=== PATIENT | female | born 1970 | race Hispanic/Latino ===

== ENCOUNTER → 2018-06-14 | Day surgery (SDC) | payer OTHER ==
[~2018-06-14] MED LIST: HYDROCODONE/APAP 7.5/325 MG TAB ONE
[2018-06-14 08:55] LABS: MPV 8.1 fL (7.6-11.3)
[2018-06-14 09:02] LABS: Protime INR 1.03
--- NOTE | 2018-06-14 11:50 | RAD REPORT ---
EXAM DESCRIPTION: CT - Myelogram C Spine - 06/14/2018 11:30 am CLINICAL HISTORY: M50.13 COMPARISON: [id number] dated 06/08/2007 FINDINGS: Lumbar puncture for myelographic injection of contrast is separately reported in detail. ACDF is seen spanning C5-7, appearing well-healed. No hardware complication or abnormality discerned. Normal craniocervical junction noted. The visualized portions posterior fossa are within normal limit s. Prevertebral soft tissues normal in thickness. C2-3: No significant canal or foraminal stenosis identified. C3-4: A central disc protrusion is present measuring 5 mm in anterior-posterior dimension, effacing t he anterior subarachnoid space and contacting and deforming the cord centrally. Moderate central rainer l stenosis is present. Exit foramina are widely patent. C4-5: Small osteophyte/disc complex is present attenuating the anterior subarachnoid space contacting the anterior cord. Central canal is mildly narrowed. No significant exit foraminal stenosis. C5-6: Small posterior osteophytic ridge is present mildly narrowing the central canal. No significant exit foraminal stenosis. C6-7: No canal or foraminal stenosis of significance. C7-T1: Protrusion of disc material is present along the right paracentral and foraminal region result ing in right-sided exit foraminal narrowing. Mild mass effect on the right aspect of the cord also pr esent. Central canal is mildly narrowed. Cervical cord appears normal in size. IMPRESSION: Disc protrusions are suspected at C3-4 centrally and C7-T1 along the right as fully deta iled above. Well-healed ACDF noted spanning C5-7. All CT scans are performed using dose optimization technique as appropriate and may include automated exposure control or mA/KV adjustment according to patient size.
--- NOTE | 2018-06-14 11:51 | RAD REPORT ---
EXAM DESCRIPTION: RAD - Myelography C Spine - 06/14/2018 11:40 am CLINICAL HISTORY: M5013, CERVICAL DISC DISORDER W/ RADICULOPATHY COMPARISON: SPINE CERVICAL AP LAT dated 10/20/2008; SPINE CERVICAL W OBLIQUES dated 07/04/2003 TECHNIQUE: The procedure, risks and alternatives to the procedure were discussed with the patient in detail. After answering all questions, both oral and written consent were obtained. Time-out procedu re was performed. The patient was placed in an oblique prone position on the fluoroscopic table. The skin of the lower back was prepped and draped in the usual sterile fashion. After anesthetizing the skin and deeper sof t tissues with 1% lidocaine, a 22 gauge needle was advanced into the thecal sac at the L2-3 level. 10 cc of Isovue 300 and was injected into the subarachnoid space. The patient is placed Trendelenburg for few minutes prior to being transferred to the CT scanner for CT cervical myelogram, separately r eported. At the conclusion of the procedure the needle was withdrawn and a sterile bandage placed over the pun cture site. The patient tolerated the procedure well without immediate complications. Total fluoro time: 1 minutes Images obtained: 4 IMPRESSION: Successful fluoroscopic guided lumbar puncture and myelographic contrast injection for C T cervical myelogram.
== END ==
LOC: DS 08:29
PROVIDERS: ATTEND Specialist
PROC: B02BYZZ Computerized Tomography (CT Scan) of Spinal Cord using Other Contrast (ICD-10-PCS; principal; 2018-06-14)
DX: M50.13 Cervical disc disorder with radiculopathy, cervicothoracic region (principal)
CPT/HCPCS: 36415; 62302; 72126; 85049; 85610; 85730; Q9967

== ENCOUNTER 2021-11-04 10:35 | Emergency (ER) | payer BC ==
--- OUTSIDE RECORDS SUMMARY | 2021-11-04 10:39 | XMS REPORT | Continuity of Care Document ---
:1970 Author Organization [facility] t Address [address] [place] [address] Care Team Providers Name Role Phone Pcp, Does Not Have A Primary Care Physician LENARD, A Attending Clinician Unavailable Therapy, Covid Infusion Attending Clinician Unavailable Lenard RODRÍGUEZ, A Attending Clinician Doctor Unassigned, Name Attending Clinician Unavailable NAHOMY Attending Clinician Unavailable SAMIRA Attending Clinician Unavailable Payers Payer Name Policy Type Policy Number Effective Date Expiration Date S get [facility] O [id number] 2020 00:00:00 Problems Condition Condition Condition Status Onset Resolution Last Treating Co mments Source Name Details Category Date Date Treatment Clinician Date UNK Diagnosis Active 2017-092018-08-07 Mem oria 0-19 15:20:00 l UNK 00:00: Ramon 00 Active 07/02/2018 [facility] 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 1-26 ity of in in 00:00: [place] cervical cervical 00 Medica l region region Branch History of History of Problem Resolve Univers Rheumatoid Rheumatoid d it [place] of arthritis [place] Depression Depression Problem Active U nivers ity of [place] Physici ans History of History of Problem Resolve Univers H/O H/O d ity of lumbosacra [place]umb[place]acra [place] l spine l spine Physici surgery surgery ans Screening Screening Problem Active Uni vers examinatio examinatio it y of n for n for [place] pulmonary pulmonary Phys ici tuberculos tuberculos an s is is Ankylosing Ankylosing Problem Active U nivers spondyliti spondyliti it y of s s [place] Physici ans [place] Problem Active Univers equina equina ity of syndrome syndrome [place] Physici ans Urinary Urinary Problem Active Univers incontinen incontinen it y of ce ce [place] Physici ans Cervical Cervical Problem Active Unive rs radiculopa radiculopa it y of thy thy [place] Physici ans Osteoarthr Osteoarthr Problem Active U nivers itis, itis, ity of localized, localized, [place] knee knee Physici ans Lumbar Lumbar Problem Active Univers radiculopa radiculopa it y of thy thy [place] [facility]ici ans Inflammato Inflammato Problem Active U nivers ry ry ity of spondylopa spondylopa [place] thy thy Physici ans Encounter Encounter Problem Active Uni vers for for ity of long-term long-term [place] (current) (current) Phys ici use of use of ans medication medication s s Eosinophil Eosinophil Problem Active U nivers ia ia ity of [place] Physici ans Seronegati Seronegati Problem Active U nivers ve ve ity of rheumatoid rheumatoid [place] arthritis arthritis Phys ici ans Allergies, Adverse Reactions, Alerts Allergy Allergy Status Severity Reaction(s) Onset Inactive Treating Comm ents Source Name Type Date Date Clinician NSAIDS Drug Active SOB Univers (NON-LARRY Class 8-26 ity of ROIDAL 00:00: [place] ANTI-INF 00 Medical [facility] Branch Y DRUG) Nsaids Propensi Active Shortness of Un law (Non-Larry ty to Breath 8-26 ity of roidal adverse 00:00: [place] Anti-Inf reaction [facility] NO KNOWN Drug Active Univers ALLERGIE Class ity of S [facility] Aspirin Allergy Active Univers TABS to drug ity of (finding [place] ) Physici ans NSAIDs Allergy Active Univers to drug ity of (finding [place] Physici ans Family History Family Member Diagnosis Comments Start Date Stop Date Source Mother Family history of Univers ity of [place] rheumatoid arthritis Phys icians Mother Family history of Univers ity of [place] essential hypertension Ph ysicians Sister Family history of Univers ity of [place] essential hypertension Ph ysicians Social History Social Habit Start Date Stop Date Quantity Comments Source Sex Ass[birth year] At [birth year] Universit y of [place] 00:00:00 00:00:00 Medical Branch Smoking Status Start Date Stop Date Source Never smoked tobacco (finding) U [facility] Physicians Unknown if ever [facility] [place] [facility] Medications Ordered Filled Start Stop Current Ordering Indication Dosage Frequency Signature Comments Components Source Medication Medication Date Date Medication? Clinician (SIG) Name Name verenice 2020- No [id number] 1200mg 1,200 mg, Univers -imdevimab 05-09 IV ity of 1200 mg in 22:15: 21:41 Infusion, [place] 60 mL NS 00 :00 ONCE, Medical MINI-BAG Administer Branc h over 20 Minutes, Bridgette 05/09/21 at 1715, For 1 dose
Ad gold wheel blocker and polisher as an IV infusion via pump or gravity through an intravenou s line containing a sterile, in-line or add-on 0.2-micron polyethers ulfone (PES) filter. Stable 36 hours refrigerat ed; 4 hours at room temperatur e.
Rinvoq 15 Rinvoq 15 Yes MARIBELL take one Univers MG Oral MG Oral 2-19 COREA pill po ity of Tablet Tablet 00:00: M.D. daily [place] Extended Extended 00 Physici Release 24 Release 24 ans Hour Hour Leflunomide Leflunomide Yes MARIBELL TAKE 1 Univers 20 MG Oral 20 MG Oral 9-21 COREA TABLET BY ity of Tablet Tablet 00:00: M.D. MOUTH [place] 00 EVERY DAY Physici ans predniSONE predniSONE Yes MARIBELL TAKE 2 Univers 5 MG Oral 5 MG Oral 1-11 COREA TABLETS BY ity of Tablet Tablet 00:00: M.D. MOUTH [place] 00 EVERY DAY Physici ans EPINEPHrine EPINEPHrine 2018-09 Yes MARIBELL FOR SEVERE Univers 0.3 0.3 1-08 COREA ALLERGIC ity of MG/0.3ML MG/0.3ML 00:00: M.D. REACTION: [place] Injection Injection 00 INJECT Phy sici Solution Solution INTRAMUSCU a ns Auto-inject Auto-inject LARLY INTO or or THIGH MUSCLE. CALL 911. IF SYMPTOMS CONTINUE MAY REPEAT IN 5-15 MINUTES. 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 Physici ans CVS CVS 2015-09 Yes MARIBELL TAKE Univers Acetaminoph Acetaminoph 2-09 COREA 325-650MG ity of en 325 MG en 325 MG 00:00: M.D. (1-2 TABS) [place] Oral Tablet Oral Tablet 00 BY MOUTH Physici 30 MINUTES ans PRIOR TO INFUSION. MAY REPEAT EVERY 4-6 HOURS NEEDED FOR ACHES, PAIN OR FEVER. traMADol traMADol Yes MARIBELL TAKE ONE Univers HCl - 50 MG HCl - 50 MG 4-08 COREA (1) ity of Oral Tablet Oral Tablet 00:00: M.D. TABLET(S) [place] 00 BY MOUTH Physici EVERY ans EIGHT HOURS NEEDED. 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 00 Physici ans DULoxetine DULoxetine Yes MARIBELL TAKE ONE Univers HCl - 60 MG HCl - 60 MG 5-03 COREA CAPSULE BY ity of Oral Oral 00:00: M.D. MOUTH [place] Capsule Capsule 00 DAILY Physici Delayed Delayed ans Release Release Particles Particles Cyclobenzap Cyclobenzap Yes MARIBELL TAKE 1 Univers rine HCl - rine HCl - 2-23 COREA TABLET BY ity of 10 MG Oral 10 MG Oral 00:00: M.D. MOUTH [place] Tablet Tablet 00 EVERY DAY Physic i AT BEDTIME ans NEEDED Lidocaine 5 Lidocaine 5 Yes MARIBELL APPLY 1 TO Univers % External % External 2-23 COREA 3 PATCHES ity of Patch Patch 00:00: M.D. TO [place] 00 AFFECTED Physici AREA FOR ans 12 HOURS ON AND 12 HOURS OFF Celecoxib Celecoxib Yes MARIBELL Take 1 Univers 200 MG Oral 200 MG Oral 2-23 COREA capsule by ity of Capsule Capsule 00:00: M.D. mouth [place] 00 twice a Physici day ans BISACODYL Yes 1 Univers 10 MG 1-27 Suppositor ity of RECTAL SUPP 00:00: y Rectal [place] 00 QDAILYPRN Medical Branch CYCLOBENZAP 2005-0 Yes 1 Tab Oral Univers RINE 10 MG 1-27 TID ity of ORAL TAB 00:00: [place] 00 Medical Branch BISACODYL 2006-0 Yes 1 Univers 10 MG 1-27 Suppositor ity of RECTAL SUPP 00:00: y Rectal [place] 00 QDAILYPRN [facility] CYCLOBENZAP Yes 1 Tab Oral Univers RINE 10 MG 1-27 TID ity of ORAL TAB 00:00: [address] HYDROCODONE Yes 1 Tab Oral Univers -ACETAMINOP 1-26 Q4HPRN ity of HEN 5-325 00:00: [place] MG ORAL TAB 00 [facility] DOCUSATE Yes 1 Cap Oral Uni vers SODIUM 100 1-26 BID ity of MG ORAL CAP 00:00: [address] HYDROCODONE Yes 1 Tab Oral Univers -ACETAMINOP 1-26 Q4HPRN ity of HEN 5-325 00:00: [place] MG ORAL TAB 00 [facility] DOCUSATE Yes 1 Cap Oral Uni vers SODIUM 100 1-26 BID ity of MG ORAL CAP 00:00: [address] Losartan Losartan Yes 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 [place] Tablet Tablet Physici ans Immunizations Ordered Filled Immunization Date Status Comments Sourc e Immunization Name Name PPD 2013-09-28 Completed [facility] 00:00:00 [place] Physicia ns PPD 2012-10-14 Completed [facility] 00:00:00 [place] Physicla ns Vital Signs Vital Name Observation Time Observation Value Comments Source Systolic blood 2021-05-09 121 mm[Hg] [facility] pressure 22:30:00 [facility] Diastolic blood 2021-05-09 61 mm[Hg] [place] o f pressure 22:30:00 [facility] Heart rate 2021-05-09 77 /min [facility] 22:30:00 [facility] Body temperature 2021-05-09 36.44 Nataly [facility] 22:30:00 [facility] Respiratory rate 2021-05-09 18 /min [facility] 22:30:00 [facility] Oxygen saturation 2021-05-09 95 /min [facility] in Arterial blood 22:30:00 [facility] by Pulse oximetry [place] Body height 2021-05-09 160 cm [facility] 21:11:00 [facility] Body weight 2021-05-09 102.513 kg [facility] 21:11:00 [facility] BMI 2021-05-09 40.03 kg/m2 University 21:11:00 [place] Medical [facility] Weight 2020-12-19 239.5 [lb_av] University of 15:52:00 [place] Physician s Body mass index 2020-12-19 42.43 kg/m2 University o f (BMI) [Ratio] 15:52:00 [place] Physicia ns Body temperature 2020-12-19 97.7 [degF] University 15:52:00 [place] Physician s Heart Rate 2020-12-19 121 /min University of 15:52:00 [place] Physician s Systolic blood 2020-12-19 152 mm[Hg] Location: [facility]; [facility] pressure 15:52:00 Position: [place] Physician s Sitting Diastolic blood 2020-12-19 81 mm[Hg] Location: [facility]; [facility] pressure 15:52:00 Position: [place] Physician s Sitting Systolic blood 2020-09-21 128 mm[Hg] Location: [facility]; [facility] pressure 13:39:00 Position: [place] Physician s Sitting Diastolic blood 2020-09-21 80 mm[Hg] Location: [facility]; [facility] pressure 13:39:00 Position: [place] Physician s Sitting Weight 2020-09-21 234.2 [lb_av] [place] of 13:39:00 [place] Physician s Body mass index 2020-09-21 41.49 kg/m2 [place] o f (BMI) [Ratio] 13:39:00 [place] Physicia ns Heart Rate 2020-09-21 103 /min Location: R [facility] 13:39:00 Carotid; [place] Physician s Body temperature 2020-09-21 96.6 [degF] [place] of 13:39:00 [place] Physician s BP Systolic 2019-03-30 120 mm[Hg] Location: [facility]; [facility] 13:25:00 Position: [place] Physician s Sitting BP Diastolic 2019-03-30 78 mm[Hg] Location: [facility]; [facility] 13:25:00 Position: [place] Physician s Sitting Height 2019-03-30 63 [in_us] [place] of 13:25:00 [place] Physician s Weight 2019-03-30 219.25 [lb_av] [place] of 13:25:00 [place] Physician s Body Mass Index 2019-03-30 38.84 kg/m2 University o f Calculated 13:25:00 [place] Physician s Heart Rate 2019-03-30 88 /min Location: R [facility] 13:25:00 Radial; [place] Physician s BP Systolic 2018-11-23 125 mm[Hg] Location: [facility]; [facility] 11:18:00 Position: [place] Physician s Sitting BP Diastolic 2018-11-23 83 mm[Hg] Location: [facility]; [facility] 11:18:00 Position: [place] Physician s Sitting Height 2018-11-23 63 [in_us] University 11:18:00 [place] Physician s Weight 2018-11-23 228.125 [lb_av] [place] o 11:18:00 [place] Physician s Body Mass Index 2018-11-23 40.41 kg/m2 [facility] Calculated 11:18:00 [place] Physician s Heart Rate 2018-11-23 112 /min Location: R [facility] 11:18:00 [facility]; [place] Physician s BP Systolic 2018-03-03 133 mm[Hg] Location: [facility]; [facility] 15:41:00 Position: [place] Physician s Sitting BP Diastolic 2018-03-03 87 mm[Hg] Location: [facility] 15:41:00 Position: [place] Physician s Sitting Height 2018-03-03 63 [in_us] [facility] 15:41:00 [place] Physician s Weight 2018-03-03 224.4375 [lb_av] [facility] 15:41:00 [place] Physician s Body Mass Index 2018-03-03 39.76 kg/m2 [facility] Calculated 15:41:00 [place] Physician s Heart Rate 2018-03-03 101 /min Location: R [facility] 15:41:00 Radial; [place] Physician s Procedures Procedure Date / Time Performed Performing Clinician Sour e CONSENT/REFUSAL FOR 2021-05-09 05:01:00 Doctor Unassigned, [facility] AND Name Medical Branch TREATMENT [QL] CBC (INCLUDES 2020-12-19 00:00:00 Univers y [facility] DIFF/PLT) Physicians [QL] CMP W/EGFR 2020-12-19 00:00:00 [place] o [facility] Physicians [QL] C-REACTIVE 2020-12-19 00:00:00 [facility] PROTEIN Physicians [QL] SED RATE BY 2020-12-19 00:00:00 [facility] MODIFIED WESTERGREN Physicians [QL] QUANTIFERON(R)-TB 2019-12-07 00:00[facility]00 [facility] [QLH] CBC (INCLUDES 2019-12-07 00:00:00 Universi ty [facility] DIFF/PLT) Physicians [QLH] CMP W/EGFR 2019-12-07 00:00:00 [facility] Physicians [QLH] C-REACTIVE 2019-12-07 00:00:00 [facility] PROTEIN Physicians [QLH] SED RATE BY 2019-12-07 00:00:00 [facility] MODIFIED WESTERGREN Physicians [QL] CBC (INCLUDES 2019-12-07 00:00:00 Univers y [facility] DIFF/PLT) Physicians [QL] CMP W/EGFR 2019-12-07 00:00:00 University o f [place] Physicians [QL] C-REACTIVE 2019-12-07 00:00:00 [place] o f [place] PROTEIN Physicians [QL] SED RATE BY 2019-12-07 00:00:00 [facility] [[facility]] QUANTIFERON(R)-TB 2018-11-23 00:00:00 [facility] GOLD Physicians [QLH] CBC (INCLUDES 2018-11-23 00:00:00 [facility] DIFF/PLT) Physicians [QLH] CMP W/EGFR 2018-11-23 00:00:00 [facility] Physicians [QLH] C-REACTIVE 2018-11-23 00:00:00 [facility] PROTEIN Physicians [H] SED RATE BY 2018-11-23 00:00:00 [facility] MODIFIED WESTOBINNAREN Physicians Encounters Start End Encounter Admission Attending Care Care Encounter Source Date/Time Date/Time Type Type Clinicians Facility Department ID 2021-05-09 2021-05-09 Outpatient Jermaine WEINBERG [facility] [id number] Univers 15:30:00 15:30:00 NORRIS altamirano of [facility] 2021-05-09 2021-05-09 Nurse Therapy, Adc Covid Infusion [facility] [id number] Univers 14:24:43 15:24:43 Visit Norris Weinberg [id number] adarsh [facility] [id number] [place] Surgical [id number] Med [place] [id number] Branch 2021-05-09 2021-05-09 Orders Doctor CURIEL [id number] Univers 00:00:00 00:00:00 Only Unassigned, JUVENCIO [id number] ity of [place] [facility] [id number] Erik as [id number] [place] [id number] Branch 2020-12-19 2020-12-19 AppointTOSHA Caballero Rheumatolog [id number] Univers 15:30:00 15:30:00 t; MARIBELL COREA y ity of [place], M.D. [place] M.D. Physici ans 2020-09-21 2020-09-21 AppointTOSHA Caballero Rheumatolog [id number] Univers 13:30:00 13:30:00 t; MARIBELL COREA y ity of [place], M.D. [place] M.D. Physici ans 2020-06-27 2020-06-27 AppointTOSHA Caballero Rheumatolog [id number] Univers 15:00:00 15:00:00 t; MARIBELL COREA y ity of [place], M.D. [place] M.D. Physici ans 2019-12-07 2019-12-07 AppointTOSHA Caballero Rheumatolog [id number] Univers 15:00:00 15:00:00 t; MARIBELL COREA y ity of [place], M.D. [place] M.D. Physici ans 2019-08-08 2019-08-08 AppointTOSHA Caballero Rheumatolog [id number] Univers 13:30:00 13:30:00 t; MARIBELL COREA y ity of [place], M.D. [place] M.D. Physici ans 2019 2019-05-27 Outside nullFlavo MARCIA [id number] Memoria 19:28:42 04:59:59 Medical r Neurology 01 l Records Yung Callender 2019-05-20 2019-05-21 Outpatient nullFlavo MNA [id number] Memoria 20:45:00 04:59:59 r Neurology 01 l Yung Callender 2019-03-30 2019-03-30 Appointmen TOSHA COREA Rheumatolog [id number] Univers 13:30:00 13:30:00 t; MARIBELL COREA y ity of [place], M.D. [place] M.D. Physici ans 2018-11-23 2018-11-23 Appointmen TOSHA COREA Rheumatolog [id number] Univers 10:30:00 10:30:00 t; MARIBELL COREA y ity of [place], M.D. [place] M.D. Physici ans 2018-09-02 2018-09-04 Outside nullFlavo MNA [id number] Memoria 22:39:00 05:59:59 Medical r Neurology 00 l Records [facility] 2018-07-07 2018-07-07 Day nullFlavo [facility] [id number] Memoria 13:00:00 13:00:00 Surgery r Callender [address] [facility] [place] 2018-06-25 2018-06-26 Outpatient nullFlavo MNA [id number] Memoria 20:45:00 04:59:59 [facility] 2018-03-03 2018-03-03 AppointTOSHA Caballero Rheumatolog [id number] Univers 15:30:00 15:30:00 t; MARIBELL COREA y ity of [place], M.D. [facility].DAlirio Physici ans 2017-10-14 2017-10-14 AppointTOSHA Caballero UTP [id number] Univers 14:30:00 14:30:00 t; MARIBELL COREA ity of [place], M.D. [facility].D. Physici ans 2017-06-24 2017-06-24 Appointmen TOSHA COREA UTP [id number] Univers 14:00:00 14:00:00 t; MARIBELL COREA ity of [place], M.D. [place] M.D. Physici ans 2016-12-23 2016-12-23 Appointmen TOSHA HOGAN UTP [id number] Univers 10:00:00 10:00:00 t; NIKITA HOGAN M.D. i ty of THY, M.D. [place] Physici ans 2016-12-03 2016-12-03 Appointmen TOSHA COREA UTP [id number] Univers 15:30:00 15:30:00 t; MARIBELL COREA ity of [place], M.D. [place] M.DAlirio Physici ans 2016-11-28 2016-11-29 Outpt Diag nullFlavo [facility] [id number] Memoria 20:55:00 04:59:00 Services r Outpatient 01 l Imaging Ashlie Elder Lees 2016-11-24 2016-11-24 Appointmen [facility] [id number] Univers 11:00:00 11:00:00 t; NIKITA HOGAN M.D. i ty myron SHELTON M.D. [place] Physic ans 2016-08-05 2016-08-05 Appointmen TOSHA COREA UTP [id number] Univers 10:00:00 10:00:00 t; MARIBELL COREA ity of [place], M.D. [place] M.D. Physici ans 2016-03-18 2016-03-18 Appointmen TOSHA COREA UTP [id number] Univers 10:00:00 10:00:00 t; MARIBELL COREA ity of [place], M.D. [place] Tobi Physic ans 2014-09-25 2014-09-26 Outpt Diag nullFlavo [facility] [id number] Memoria 18:54:00 05:59:00 Services r Outpatient 00 l Imaging Ramon Jeff Results Test Description Test Time Test Comments Results Result Comments Source [QL] CMP W/EGFR 2020-12-19 16:46:00 Test Item Value Reference Range Interpretation Comme nts GLUCOSE; Above High 128 mg/dl 65-99 Fasting reference interval Threshold (test code = For s omeone without known 1547-9) diabetes, a glu cosevalue >125 mg/dL indicates that they may havediabetes an d this should be confirmed wi th afollow-up test. UREA NITROGEN (BUN) (test 10 mg/dl 7-25 N code = UREA NITROGEN (BUN)) CREATININE (test code = 0.75 mg/dl 0.50-1.05 N For patients >49 years of CREATININE) age, the refere nce limitfor Creatinine is a pproximately 13% higher for peopleidentifie d as -Arlet n. eGFR NON-AFR. PANAMANIAN 92 {ML/MIN/1.7} See_Comment N [ Automated message] The (test code = [facility]GFR system [facility] generated this NON-AFR. PANAMANIAN) result tr ansmitted reference range: > OR = 6 0. The reference range was not used to interpret th is result as normal/abnormal . eGFR 107 {ML/MIN/1.7} See_Comment N [ Automated message] The (test code = eGFR sy stem which generated this PANAMANIAN) result transmit silvana reference range: > OR = 6 0. The reference range was not used to interpret th is result as normal/abnormal . BUN/CREATININE RATIO NOT APPLICABLE 6-22 (test code = BUN/CREATININE RATIO) SODIUM (test code = 145 mmol/L 135-146 N SODIUM) POTASSIUM (test code = 4.2 mmol/L 3.5-5.3 N POTASSIUM) CHLORIDE (test code = 109 mmol/L 98-110 N CHLORIDE) CARBON DIOXIDE (test code 30 mmol/L 20-32 N = CARBON DIOXIDE) CALCIUM (test code = 9.1 mg/dl 8.6-10.4 N CALCIUM) PROTEIN, TOTAL (test code 6.4 g/dl 6.1-8.1 N = PROTEIN, TOTAL) ALBUMIN (test code = 4.1 g/dl 3.6-5.1 N ALBUMIN) GLOBULIN (test code = 2.3 {G/DL CALC} 1.9-3.7 N GLOBULIN) ALBUMIN/GLOBULIN RATIO 1.8 {CALC} 1.0-2.5 N (test code = ALBUMIN/GLOBULIN RATIO) BILIRUBIN, TOTAL; Normal 0.4 mg/dl 0.2-1.2 N (test code = 80327-8) ALKALINE PHOSPHATASE 58 u/l 37-153 N (test code = ALKALINE PHOSPHATASE) AST; Normal (test code = 22 u/l 10-35 N 1916-6) ALT; Normal (test code = 22 u/l 6-29 N 1742-6) [facility] Physicians[QL] SED RATE BY MODIFIED [id number] 16:46:00 Test Item Value Reference Range Interpretation Comments SED RATE BY MODIFIED 2 mm/h See_Comment N [Autom ated message] The WESTERGREN (test code = syst em which generated SED RATE BY MODIFIED this re sult transmitted WESTERGREN) reference range : < OR = 30. The referen ce range was not used to interpret this result as normal/abnormal . [facility] Physicians[QL] CBC (INCLUDES DIFF/PLT)2020-12-19 16:46:00 Test Item Value Reference Range Interpretation Comments WHITE BLOOD CELL COUNT 5.6 {Thousand/u} 3.8-10.8 N (test code = WHITE BLOOD CELL COUNT) RED BLOOD CELL COUNT (test 4.18 {Million/uL} 3.80-5.10 N code = RED BLOOD CELL COUNT) HEMOGLOBIN; Normal (test 12.7 g/dl 11.7-15.5 N code = 85593-3) HEMATOCRIT; Normal (test 38.0 % 35.0-45.0 N code = 4544-3) MCV; Normal (test code = 90.9 fL 80.0-100.0 N 787-2) MCHC; Normal (test code = 33.4 g/dl 32.0-36.0 N 50868-1) RDW; Normal (test code = 13.4 % 11.0-15.0 N 788-0) PLATELET COUNT; Normal 302 {Thousand/u} 140-400 N (test code = 777-3) MPV; Normal (test code = 10.3 fL 7.5-12.5 N 69116-2) ABSOLUTE NEUTROPHILS (test 1411 {cells/uL} 1069-3660 code = ABSOLUTE NEUTROPHILS) ABSOLUTE LYMPHOCYTES (test 3170 {cells/uL} 850-3900 N code = ABSOLUTE LYMPHOCYTES) ABSOLUTE MONOCYTES (test 818 {cells/uL} 200-950 N code = ABSOLUTE MONOCYTES) ABSOLUTE EOSINOPHILS (test 140 {cells/uL} 15-500 N code = ABSOLUTE EOSINOPHILS) ABSOLUTE BASOPHILS (test 62 {cells/uL} 0-200 N code = ABSOLUTE BASOPHILS) NEUTROPHILS (test code = 25.2 % N NEUTROPHILS) LYMPHOCYTES (test code = 56.6 % N LYMPHOCYTES) MONOCYTES; Normal (test 14.6 % N code = 91977-0) EOSINOPHILS; Normal (test 2.5 % N code = 33294-7) BASOPHILS; Normal (test 1.1 % N code = 86548-0) [facility] Physicians[QL] C-REACTIVE [id number] 16:46:00 Test Item Value Reference Range Interpretation Comments C-REACTIVE PROTEIN (test code = 1.0 mg/L <8.0 N C-REACTIVE PROTEIN) [facility] Physicians[QL] CMP [id number] 16:15:00 Test Item Value Reference Range Interpretation Comments GLUCOSE; Normal 97 mg/dl 65-99 N Fasting refe rence (test code = interval 1547-9) UREA NITROGEN 13 mg/dl 7-25 N (BUN) (test code = UREA NITROGEN (BUN)) CREATININE (test 0.78 mg/dl 0.50-1.05 N For patient s >49 years code = of age, the ref erence CREATININE) limitfor Creati nine is approximately 1 3% higher for peopleidentifie d as -Arlet n. eGFR NON-AFR. 88 {ML/MIN/1.7} > OR = 60 N PANAMANIAN (test code = eGFR NON-AFR. PANAMANIAN) eGFR 102 {ML/MIN/1.7} > OR = 60 N PANAMANIAN (test code = eGFR ) BUN/CREATININE NOT APPLICABLE 6-22 RATIO (test code = BUN/CREATININE RATIO) SODIUM (test code 141 mmol/L 135-146 N = SODIUM) POTASSIUM (test 4.3 mmol/L 3.5-5.3 N code = POTASSIUM) CHLORIDE (test 105 mmol/L 98-110 N code = CHLORIDE) CARBON DIOXIDE 27 mmol/L 20-32 N (test code = CARBON DIOXIDE) CALCIUM (test 9.4 mg/dl 8.6-10.4 N code = CALCIUM) PROTEIN, TOTAL 6.3 g/dl 6.1-8.1 N (test code = PROTEIN, TOTAL) ALBUMIN (test 4.1 g/dl 3.6-5.1 N code = ALBUMIN) GLOBULIN (test 2.2 {G/DL CALC} 1.9-3.7 N code = GLOBULIN) ALBUMIN/GLOBULIN 1.9 {CALC} 1.0-2.5 N RATIO (test code = ALBUMIN/GLOBULIN RATIO) BILIRUBIN, TOTAL; 0.3 mg/dl 0.2-1.2 N Normal (test code = 31417-5) ALKALINE 71 u/l 37-153 N PHOSPHATASE (test code = ALKALINE PHOSPHATASE) AST; Normal (test 24 u/l 10-35 N code = 1916-6) ALT; Normal (test 22 u/l 6-29 N code = 1742-6) [facility][QL] SED RATE BY MODIFIED [id number] 16:15:00 Test Item Value Reference Range Interpretation Comments SED RATE BY MODIFIED WESTERGREN (test 2 mm/h < OR = 30 N code = SED RATE BY MODIFIED LUISERGREN) [facility][QL] CBC (INCLUDES DIFF/PLT)2020-07-31 16:15:00 Test Item Value Reference Range Interpretation Comments WHITE BLOOD CELL COUNT 7.0 {Thousand/u} 3.8-10.8 N (test code = WHITE BLOOD CELL COUNT) RED BLOOD CELL COUNT (test 4.26 {Million/uL} 3.80-5.10 N code = RED BLOOD CELL COUNT) HEMOGLOBIN; Normal (test 12.6 g/dl 11.7-15.5 N code = 39197-9) HEMATOCRIT; Normal (test 39.0 % 35.0-45.0 N code = 4544-3) MCV; Normal (test code = 91.5 fL 80.0-100.0 N 787-2) MCHC; Normal (test code = 32.3 g/dl 32.0-36.0 N 61216-1) RDW; Normal (test code = 12.8 % 11.0-15.0 N 788-0) PLATELET COUNT; Normal 287 {Thousand/u} 140-400 N (test code = 777-3) MPV; Normal (test code = 11.7 fL 7.5-12.5 N 46867-2) ABSOLUTE NEUTROPHILS (test 2142 {cells/uL} 9822-0420 N code = ABSOLUTE NEUTROPHILS) ABSOLUTE LYMPHOCYTES (test 3136 {cells/uL} 850-3900 N code = ABSOLUTE LYMPHOCYTES) ABSOLUTE MONOCYTES (test 1008 {cells/uL} 200-950 code = ABSOLUTE MONOCYTES) ABSOLUTE EOSINOPHILS (test 602 {cells/uL} 15-500 code = ABSOLUTE EOSINOPHILS) ABSOLUTE BASOPHILS (test 112 {cells/uL} 0-200 N code = ABSOLUTE BASOPHILS) NEUTROPHILS (test code = 30.6 % N NEUTROPHILS) LYMPHOCYTES (test code = 44.8 % N LYMPHOCYTES) MONOCYTES; Normal (test 14.4 % N code = 04557-2) EOSINOPHILS; Normal (test 8.6 % N code = 77503-9) BASOPHILS; Normal (test 1.6 % N code = 11599-6) [facility][QL] C-REACTIVE [id number] 16:15:00 Test Item Value Reference Range Interpretation Comments C-REACTIVE PROTEIN (test code = 1.5 mg/L <8.0 N C-REACTIVE PROTEIN) [facility][Q] QUANTIFERON( R)-TB GOLD PLUS, 1 [id number] 16:15:00 Test Item Value Reference Range Interpretation Comments QUANTIFERON( NEGATIVE NEGATIVE N Negative test r esult. M. R)-TB GOLD tuberculosis co mplex PLUS, 1 TUBE infection unlik eric. (test code = QUANTIFERON( R)-TB GOLD PLUS, 1 TUBE) NIL (test code 0.04 {IU/ml} N = NIL) MITOGEN-NIL >10.00 N (test code = MITOGEN-NIL) TB1-NIL (test 0.01 {IU/ml} N code = TB1-NIL) TB2-NIL (test <0.00 N The Nil tube v alue reflects code = the background TB2-NIL) interferongamma immune response of the patient's blood sample.Th is value has been subtracted from the patient'sdispla yed TB and Mitogen results . Lower than expected result s with the Mitogen tubepre vent false-negative Quantiferon readings bydete cting a patient with a potential immunesuppressi ve condition and/or suboptim al pre-analyticals pecimen handling. The T B1 Antigen tube is coated with theM. tuberculosis-sp ecific antigens design ed to elicitresponses from TB antigen primed CD4+ helperT-lymphoc ytes. The TB2 Antigen tub e is coated with theM. tuberculosis-sp ecific antigens design ed to elicitresponses from TB antigen primed CD4+ helper and CD8+cytotox ic T-lymphocytes. For additional info rmation, please refer [email or web address] [email or web address]/f aq/VBF505(Th is link is laverne shearer provided for informational/e ducational purposes only.) [facility][QLH] CMP [id number] 15:22:00 Test Item Value Reference Range Interpretation Comments GLUCOSE; Normal 101 mg/dl 65-139 N Non-fasting reference (test code = interval 1547-9) UREA NITROGEN 17 mg/dl 7-25 N (BUN) (test code = UREA NITROGEN (BUN)) CREATININE (test 0.73 mg/dl 0.50-1.05 N For patient s >49 years code = of age, the ref erence CREATININE) limitfor Creati nine is approximately 1 3% higher for peopleidentifie d as -Arlet n. eGFR NON- 96 {ML/MIN/1.7} > OR = 60 N PANAMANIAN (test code = eGFR NON-) eGFR 111 {ML/MIN/1.7} > OR = 60 N PANAMANIAN (test code = eGFR ) BUN/CREATININE NOT APPLICABLE 6-22 RATIO (test code = BUN/CREATININE RATIO) SODIUM (test code 142 mmol/L 135-146 N = SODIUM) POTASSIUM (test 3.8 mmol/L 3.5-5.3 N code = POTASSIUM) CHLORIDE (test 105 mmol/L 98-110 N code = CHLORIDE) CARBON DIOXIDE 31 mmol/L 20-32 N (test code = CARBON DIOXIDE) CALCIUM (test 9.2 mg/dl 8.6-10.4 N code = CALCIUM) PROTEIN, TOTAL 6.3 g/dl 6.1-8.1 N (test code = PROTEIN, TOTAL) ALBUMIN (test 4.0 g/dl 3.6-5.1 N code = ALBUMIN) GLOBULIN (test 2.3 {G/DL CALC} 1.9-3.7 N code = GLOBULIN) ALBUMIN/GLOBULIN 1.7 {CALC} 1.0-2.5 N RATIO (test code = ALBUMIN/GLOBULIN RATIO) BILIRUBIN, TOTAL; 0.3 mg/dl 0.2-1.2 N Normal (test code = 97931-3) ALKALINE 72 u/l 33-130 N PHSPHATASE (test code = ALKALINE PHSPHATASE) AST; Normal (test 18 u/l 10-35 N code = 1916-6) ALT; Normal (test 25 u/l 6-29 N code = 1742-6) [facility]] SED RATE BY MODIFIED [id number] 15:22:00 Test Item Value Reference Range Interpretation Comments SED RATE BY MODIFIED WESTERGREN (test 2 mm/h < OR = 20 N code = SED RATE BY MODIFIED WESTERGREN) [facility]] CBC (INCLUDES DIFF/PLT)2019-08-08 15:22:00 Test Item Value Reference Range Interpretation Comments WHITE BLOOD CELL COUNT 6.3 {Thousand/u} 3.8-10.8 N (test code = WHITE BLOOD CELL COUNT) RED BLOOD CELL COUNT (test 4.37 {Million/uL} 3.80-5.10 N code = RED BLOOD CELL COUNT) HEMAGLOBIN; Normal (test 12.7 g/dl 11.7-15.5 N code = 76195-1) HEMATOCRIT; Normal (test 39.1 % 35.0-45.0 N code = 4544-3) MCV; Normal (test code = 89.5 fL 80.0-100.0 N 787-2) MCHC; Normal (test code = 32.5 g/dl 32.0-36.0 N 73443-4) RDW; Normal (test code = 12.6 % 11.0-15.0 N 788-0) PLATELET COUNT; Normal 318 {Thousand/u} 140-400 N (test code = 777-3) MPV; Normal (test code = 10.1 fL 7.5-12.5 N 33824-9) ABSOLUTE NEUTROPHILS (test 2652 {cells/uL} 4934-7253 N code = ABSOLUTE NEUTROPHILS) ABSOLUTE LYMPHOCYTES (test 2671 {cells/uL} 850-3900 N code = ABSOLUTE LYMPHOCYTES) ABSOLUTE MONOCYTES (test 775 {cells/uL} 200-950 N code = ABSOLUTE MONOCYTES) ABSOLUTE EOSINOPHILS (test 120 {cells/uL} 15-500 N code = ABSOLUTE EOSINOPHILS) ABSOLUTE BASOPHILS (test 82 {cells/uL} 0-200 N code = ABSOLUTE BASOPHILS) NEUTROPHILS (test code = 42.1 % N NEUTROPHILS) LYMPHOCYTES (test code = 42.4 % N LYMPHOCYTES) MONOCYTES; Normal (test 12.3 % N code = 30960-2) EOSINOPHILS; Normal (test 1.9 % N code = 53114-9) BASOPHILS; Normal (test 1.3 % N code = 35400-1) [facility]] C-REACTIVE [id number] 15:22:00 Test Item Value Reference Range Interpretation Comments C-REACTIVE PROTEIN (test code = 1.5 mg/L <8.0 N C-REACTIVE PROTEIN) [facility]] CMP [id number] 13:58:00 Test Item Value Reference Range Interpretation Comments GLUCOSE; Normal 76 mg/dl 65-139 N Non-fasting (test code = reference inter ananya 1547-9) UREA NITROGEN (BUN) 13 mg/dl 7-25 N (test code = UREA NITROGEN (BUN)) CREATININE (test 0.70 mg/dl 0.50-1.10 N code = CREATININE) eGFR NON- 102 {ML/MIN/1.7} > OR = 60 N PANAMANIAN (test code = eGFR NON-) eGFR 118 {ML/MIN/1.7} > OR = 60 N PANAMANIAN (test code = eGFR ) BUN/CREATININE NOT APPLICABLE 6-22 RATIO (test code = BUN/CREATININE RATIO) SODIUM (test code = 143 mmol/L 135-146 N SODIUM) POTASSIUM (test 4.0 mmol/L 3.5-5.3 N code = POTASSIUM) CHLORIDE (test code 108 mmol/L 98-110 N = CHLORIDE) CARBON DIOXIDE 30 mmol/L 20-32 N (test code = CARBON DIOXIDE) CALCIUM (test code 9.7 mg/dl 8.6-10.2 N = CALCIUM) PROTEIN, TOTAL 7.0 g/dl 6.1-8.1 N (test code = PROTEIN, TOTAL) ALBUMIN (test code 4.5 g/dl 3.6-5.1 N = ALBUMIN) GLOBULIN (test code 2.5 {G/DL CALC} 1.9-3.7 N = GLOBULIN) ALBUMIN/GLOBULIN 1.8 {CALC} 1.0-2.5 N RATIO (test code = ALBUMIN/GLOBULIN RATIO) BILIRUBIN, TOTAL; 0.3 mg/dl 0.2-1.2 N Normal (test code = 22641-3) ALKALINE PHSPHATASE 83 u/l 33-115 N (test code = ALKALINE PHSPHATASE) AST; Normal (test 16 u/l 10-35 N code = 1916-6) ALT; Normal (test 15 u/l 6-29 N code = 1742-6) [facility]] SED RATE BY MODIFIED [id number] 13:58:00 Test Item Value Reference Range Interpretation Comments SED RATE BY MODIFIED WESTERGREN (test 2 mm/h < OR = 20 N code = SED RATE BY MODIFIED WESTERGREN) [facility]] CBC (INCLUDES DIFF/PLT)2019-03-30 13:58:00 Test Item Value Reference Range Interpretation Comments WHITE BLOOD CELL COUNT 7.5 {Thousand/u} 3.8-10.8 N (test code = WHITE BLOOD CELL COUNT) RED BLOOD CELL COUNT (test 4.59 {Million/uL} 3.80-5.10 N code = RED BLOOD CELL COUNT) HEMAGLOBIN; Normal (test 13.1 g/dl 11.7-15.5 N code = 35332-5) HEMATOCRIT; Normal (test 40.1 % 35.0-45.0 N code = 4544-3) MCV; Normal (test code = 87.4 fL 80.0-100.0 N 787-2) MCHC; Normal (test code = 32.7 g/dl 32.0-36.0 N 26986-2) RDW; Normal (test code = 12.6 % 11.0-15.0 N 788-0) PLATELET COUNT; Normal 281 {Thousand/u} 140-400 N (test code = 777-3) MPV; Normal (test code = 10.6 fL 7.5-12.5 N 08891-6) ABSOLUTE NEUTROPHILS (test 2888 {cells/uL} 5192-7242 N code = ABSOLUTE NEUTROPHILS) ABSOLUTE LYMPHOCYTES (test 3555 {cells/uL} 850-3900 N code = ABSOLUTE LYMPHOCYTES) ABSOLUTE MONOCYTES (test 878 {cells/uL} 200-950 N code = ABSOLUTE MONOCYTES) ABSOLUTE EOSINOPHILS (test 113 {cells/uL} 15-500 N code = ABSOLUTE EOSINOPHILS) ABSOLUTE BASOPHILS (test 68 {cells/uL} 0-200 N code = ABSOLUTE BASOPHILS) NEUTROPHILS (test code = 38.5 % N NEUTROPHILS) LYMPHOCYTES (test code = 47.4 % N LYMPHOCYTES) MONOCYTES; Normal (test 11.7 % N code = 83907-0) EOSINOPHILS; Normal (test 1.5 % N code = 82113-4) BASOPHILS; Normal (test 0.9 % N code = 81023-6) [facility]] C-REACTIVE [id number] 13:58:00 Test Item Value Reference Range Interpretation Comments C-REACTIVE PROTEIN (test code = 2.1 mg/L <8.0 N C-REACTIVE PROTEIN) [facility]] CMP [id number] 11:40:00 Test Item Value Reference Range Interpretation Comments GLUCOSE; Normal 118 mg/dl 65-139 N Non-fasting (test code = reference inter ananya 1547-9) UREA NITROGEN (BUN) 16 mg/dl 7-25 N (test code = UREA NITROGEN (BUN)) CREATININE (test 0.72 mg/dl 0.50-1.10 N code = CREATININE) eGFR NON- 98 {ML/MIN/1.7} > OR = 60 N PANAMANIAN (test code = eGFR NON-) eGFR 114 {ML/MIN/1.7} > OR = 60 N PANAMANIAN (test code = eGFR ) BUN/CREATININE NOT APPLICABLE 6-22 RATIO (test code = BUN/CREATININE RATIO) SODIUM (test code = 143 mmol/L 135-146 N SODIUM) POTASSIUM (test 3.9 mmol/L 3.5-5.3 N code = POTASSIUM) CHLORIDE (test code 105 mmol/L 98-110 N = CHLORIDE) CARBON DIOXIDE 30 mmol/L 20-32 N (test code = CARBON DIOXIDE) CALCIUM (test code 9.1 mg/dl 8.6-10.2 N = CALCIUM) PROTEIN, TOTAL 6.9 g/dl 6.1-8.1 N (test code = PROTEIN, TOTAL) ALBUMIN (test code 4.1 g/dl 3.6-5.1 N = ALBUMIN) GLOBULIN (test code 2.8 {G/DL CALC} 1.9-3.7 N = GLOBULIN) ALBUMIN/GLOBULIN 1.5 {CALC} 1.0-2.5 N RATIO (test code = ALBUMIN/GLOBULIN RATIO) BILIRUBIN, TOTAL; 0.5 mg/dl 0.2-1.2 N Normal (test code = 17527-2) ALKALINE PHSPHATASE 75 u/l 33-115 N (test code = ALKALINE PHSPHATASE) AST; Normal (test 14 u/l 10-35 N code = 1916-6) ALT; Normal (test 20 u/l 6-29 N code = 1742-6) [facility]] SED RATE BY MODIFIED [id number] 11:40:00 Test Item Value Reference Range Interpretation Comments SED RATE BY MODIFIED LUISERGREN (test 2 mm/h < OR = 20 N code = SED RATE BY MODIFIED LUISERGREN) [facility]] CBC (INCLUDES DIFF/PLT)2018-11-23 11:40:00 Test Item Value Reference Range Interpretation Comments WHITE BLOOD CELL COUNT 8.6 {Thousand/u} 3.8-10.8 N (test code = WHITE BLOOD CELL COUNT) RED BLOOD CELL COUNT (test 4.61 {Million/uL} 3.80-5.10 N code = RED BLOOD CELL COUNT) HEMAGLOBIN; Normal (test 13.4 g/dl 11.7-15.5 N code = 50001-6) HEMATOCRIT; Normal (test 41.4 % 35.0-45.0 N code = 4544-3) MCV; Normal (test code = 89.8 fL 80.0-100.0 N 787-2) MCHC; Normal (test code = 32.4 g/dl 32.0-36.0 N 09082-8) RDW; Normal (test code = 13.2 % 11.0-15.0 N 788-0) PLATELET COUNT; Normal 316 {Thousand/u} 140-400 N (test code = 777-3) MPV; Normal (test code = 10.0 fL 7.5-12.5 N 26126-4) ABSOLUTE NEUTROPHILS (test 5495 {cells/uL} 7793-0769 N code = ABSOLUTE NEUTROPHILS) ABSOLUTE LYMPHOCYTES (test 2167 {cells/uL} 850-3900 N code = ABSOLUTE LYMPHOCYTES) ABSOLUTE MONOCYTES (test 748 {cells/uL} 200-950 N code = ABSOLUTE MONOCYTES) ABSOLUTE EOSINOPHILS (test 120 {cells/uL} 15-500 N code = ABSOLUTE EOSINOPHILS) ABSOLUTE BASOPHILS (test 69 {cells/uL} 0-200 N code = ABSOLUTE BASOPHILS) NEUTROPHILS (test code = 63.9 % N NEUTROPHILS) LYMPHOCYTES (test code = 25.2 % N LYMPHOCYTES) MONOCYTES; Normal (test 8.7 % N code = 59296-3) EOSINOPHILS; Normal (test 1.4 % N code = 29768-0) BASOPHILS; Normal (test 0.8 % N code = 85974-5) [facility]] C-REACTIVE [id number] 11:40:00 Test Item Value Reference Range Interpretation Comments C-REACTIVE PROTEIN (test code = 2.5 mg/L <8.0 N C-REACTIVE PROTEIN) [facility][Q] QUANTIFERON( R)-TB GOLD PLUS, 1 [id number] 11:40:00 Test Item Value Reference Range Interpretation Comments QUANTIFERON( NEGATIVE NEGATIVE N Negative test r esult. M. R)-TB GOLD tuberculosis co mplex PLUS, 1 TUBE infection unlik eric. (test code = QUANTIFERON( R)-TB GOLD PLUS, 1 TUBE) NIL (test code 0.02 {IU/ml} N = NIL) MITOGEN-NIL >10.00 N (test code = MITOGEN-NIL) TB1-NIL (test 0.00 {IU/ml} N code = TB1-NIL) TB2-NIL (test 0.00 {IU/ml} N The Nil tube v alue reflects code = the background TB2-NIL) interferongamma immune response of the patient's blood sample.Th is value has been subtracted from the patient'sdispla yed TB and Mitogen results . Lower than expected result s with the Mitogen tubepre vent false-negative Quantiferon readings bydete cting a patient with a potential immunesuppressi ve condition and/or suboptim al pre-analyticals pecimen handling. The T B1 Antigen tube is coated with theM. tuberculosis-sp ecific antigens design ed to elicitresponses from TB antigen primed CD4+ helperT-lymphoc ytes. The TB2 Antigen tub e is coated with theM. tuberculosis-sp ecific antigens design ed to elicitresponses from TB antigen primed CD4+ helper and CD8+cytotox ic T-lymphocytes. For additional info rmation, please refer [email or web address] [email or web address](This link is being p rovided for informational/e ducational purposes only.) [facility]] CMP [id number] 16:35:00 Test Item Value Reference Range Interpretation Comments GLUCOSE; Normal 105 mg/dl 65-139 N Non-fasting (test code = reference inter ananya 1547-9) UREA NITROGEN (BUN) 12 mg/dl 7-25 N (test code = UREA NITROGEN (BUN)) CREATININE (test 0.82 mg/dl 0.50-1.10 N code = CREATININE) eGFR NON- 85 {ML/MIN/1.7} > OR = 60 N PANAMANIAN (test code = eGFR NON-) eGFR 98 {ML/MIN/1.7} > OR = 60 N PANAMANIAN (test code = eGFR ) BUN/CREATININE NOT APPLICABLE 6-22 RATIO (test code = BUN/CREATININE RATIO) SODIUM (test code = 141 mmol/L 135-146 N SODIUM) POTASSIUM (test 4.0 mmol/L 3.5-5.3 N code = POTASSIUM) CHLORIDE (test code 106 mmol/L 98-110 N = CHLORIDE) CARBON DIOXIDE 29 mmol/L 20-31 N (test code = CARBON DIOXIDE) CALCIUM (test code 9.3 mg/dl 8.6-10.2 N = CALCIUM) PROTEIN, TOTAL 7.1 g/dl 6.1-8.1 N (test code = PROTEIN, TOTAL) ALBUMIN (test code 4.5 g/dl 3.6-5.1 N = ALBUMIN) GLOBULIN (test code 2.6 {G/DL CALC} 1.9-3.7 N = GLOBULIN) ALBUMIN/GLOBULIN 1.7 {CALC} 1.0-2.5 N RATIO (test code = ALBUMIN/GLOBULIN RATIO) BILIRUBIN, TOTAL; 0.3 mg/dl 0.2-1.2 N Normal (test code = 74017-6) ALKALINE PHSPHATASE 61 u/l 33-115 N (test code = ALKALINE PHSPHATASE) AST; Normal (test 16 u/l 10-35 N code = 1916-6) ALT; Normal (test 21 u/l 6-29 N code = 1742-6) [facility]] SED RATE BY DANAY [id number] 16:35:00 Test Item Value Reference Range Interpretation Comments SED RATE BY MODIFIED RICKYREN (test 3 mm/h < OR = 20 N code = SED RATE BY MODIFIED RICKYREN) [facility]] CBC (INCLUDES DIFF/PLT)2018-03-03 16:35:00 Test Item Value Reference Range Interpretation Comments WHITE BLOOD CELL COUNT 7.3 {Thousand/u} 3.8-10.8 N (test code = WHITE BLOOD CELL COUNT) RED BLOOD CELL COUNT (test 4.55 {Million/uL} 3.80-5.10 N code = RED BLOOD CELL COUNT) HEMOGLOBIN; Normal (test 13.4 g/dl 11.7-15.5 N code = 36242-0) HEMATOCRIT; Normal (test 39.8 % 35.0-45.0 N code = 4544-3) MCV; Normal (test code = 87.5 fL 80.0-100.0 N 787-2) MCHC; Normal (test code = 33.7 g/dl 32.0-36.0 N 31950-9) RDW; Normal (test code = 12.8 % 11.0-15.0 N 788-0) PLATELET COUNT; Normal 314 {Thousand/u} 140-400 N (test code = 777-3) MPV; Normal (test code = 9.9 fL 7.5-12.5 N 87453-8) ABSOLUTE NEUTROPHILS (test 5125 {cells/uL} 4183-1053 N code = ABSOLUTE NEUTROPHILS) ABSOLUTE LYMPHOCYTES (test 1511 {cells/uL} 850-3900 N code = ABSOLUTE LYMPHOCYTES) ABSOLUTE MONOCYTES (test 555 {cells/uL} 200-950 N code = ABSOLUTE MONOCYTES) ABSOLUTE EOSINOPHILS (test 29 {cells/uL} 15-500 N code = ABSOLUTE EOSINOPHILS) ABSOLUTE BASOPHILS (test 80 {cells/uL} 0-200 N code = ABSOLUTE BASOPHILS) NEUTROPHILS (test code = 70.2 % N NEUTROPHILS) LYMPHOCYTES (test code = 20.7 % N LYMPHOCYTES) MONOCYTES; Normal (test 7.6 % N code = 50347-7) EOSINOPHILS; Normal (test 0.4 % N code = 25927-8) BASOPHILS; Normal (test 1.1 % N code = 95120-6) [facility]] C-REACTIVE [id number] 16:35:00 Test Item Value Reference Range Interpretation Comments C-REACTIVE PROTEIN (test code = 2.5 mg/L <8.0 N C-REACTIVE PROTEIN) [facility]
[2021-11-04] MEDS ORDERED: FENTANYL CITR 100 MCG/2 ML ONE ×3 (12:20→15:10)
[2021-11-04 12:41] LABS: Absolute Lymphocytes (CBC) 2.8 K/uL (0.7-4.9); Hematocrit 35.8 % (36.0-45.0); Lymphocytes % 49.7 % (15.3-44.8); MPV 9.1 fL (7.6-11.3); RBC Red Blood Cell Count 3.94 M/uL (3.86-4.86)
[2021-11-04 12:42] LABS: Protime INR 1.01
--- NOTE | 2021-11-04 12:43 | RAD REPORT ---
EXAM DESCRIPTION: RAD - Chest Single View - 11/04/2021 11:30 am CLINICAL HISTORY: chest tightness COMPARISON: Portable January 2017 TECHNIQUE: AP portable chest image was obtained 11/04/2021 11:30 am . FINDINGS: No peripheral mass or consolidation. Interstitial pattern is mildly prominent, accentuated by surrounding body habitus and under penetrated film technique. No significant true change from com parisons suspected. Heart and vasculature are normal. No measurable pleural effusion and no pneumothorax. No acute bony abnormality seen. No acute aortic findings suspected. IMPRESSION: No acute cardiopulmonary process. No significant change from comparison study.
[2021-11-04 12:50] LABS: Albumin 3.9 g/dL (3.4-5.0); Bilirubin Direct 0.1 mg/dL (0-0.2); Bilirubin Total 0.3 mg/dL (0.2-1.0); Magnesium 2.5 mg/dL (1.8-2.4); Potassium 3.4 mmol/L (3.5-5.1); Protein, Total 7.2 g/dL (6.4-8.2); Troponin High Sensitivity 6.2 pg/mL (<58.9)
[2021-11-04] MEDS ORDERED: DIAZEPAM 10 MG/2 ML INJ SYRINGE ONE (13:48)
--- NOTE | 2021-11-04 15:57 | ER ---
Nurse's Notes [facility] Name: Gaurav Beavers Age: 51 yrs Sex: Female : 1970 Arrival Date: 11/04/2021 Time: 10:35 Bed 11 Private MD: Eric Weaver V Diagnosis: Dorsalgia, unspecified;Pain in right arm;Pain in right leg;Chest pain, unspecified Presentation: 11/04 11:06 Chief complaint: Patient states: Slipped on mud this morning, states, " I didn't fall ph but it jolted me. I have a lot of spinal issues." Reports pain in L side of back, R arm , R leg, also reports heaviness in chest. Coronavirus screen: At this time, the client does not indicate any symptoms associated with coronavirus-19. Ebola Screen: No symptoms or risks identified at this time. 11:06 Method Of Arrival: Ambulatory ph 11:09 Initial Sepsis Screen: Does the patient meet any 2 criteria? No. Patient's initial ph sepsis screen is negative. Does the patient have a suspected source of infection? No. Patient's initial sepsis screen is negative. Risk Assessment: Do you want to hurt yourself or someone else? Patient reports no desire to harm self or others. Onset of symptoms was November 04, 2021. 11:09 Acuity: VENKAT 3 ph Historical: - Allergies: 11:08 Ibuprofen; ph - PMHx: 11:08 Arthritis; Depression; Hypertension; Rheumatoid arthritis; ph - PSHx: 11:08 cervical fusion; lumbar discectomy; ph - Immunization history:: Client reports receiving the 2nd dose of the Covid vaccine. - Social history:: Smoking status: Patient denies any tobacco usage or history of. Screenin:24 Abuse screen: Denies threats or abuse. Nutritional screening: No deficits noted. ke1 Tuberculosis screening: No symptoms or risk factors identified. Fall Risk None identified. Assessment: 11:30 General: Appears in no apparent distress. Behavior is calm, cooperative. Pain: ke1 Complains of pain in Right arm down to the right leg and back Pain currently is 10 out of 10 on a pain scale. Quality of pain is described as sharp, Pain began 3 weeks ago Is continuous, Alleviated by nothing. Aggravated by increased activity, Noted to be grimacing, Current management is with fentanyl Goal of pain control is to be pain free. Neuro: Level of Consciousness is awake, alert, Oriented to person, place, time, situation, Moves all extremities. Gait is steady, Speech is normal, Facial symmetry appears normal, Pupils are PERRLA, Intact. Cardiovascular: Heart tones S1 S2 Capillary refill < 3 seconds Pulses are all present. Rhythm is sinus bradycardia. Cardiovascular: Chest pain is described as mild, quality is pressure, is located in chest wall began after she tripped this morning episodes are continuous is aggravated by nothing is alleviated by nothing. Respiratory: Airway is patent Breath sounds are clear bilaterally. GI: Abdomen is round Bowel sounds present X 4 quads. Abd is soft and non tender X 4 quads. : No deficits noted. Musculoskeletal: Capillary refill < 3 seconds, Range of motion: intact in all extremities. 13:22 Pain: Pain currently is 8 out of 10 on a pain scale. ke1 15:00 Pain: Pain currently is 10 out of 10 on a pain scale. ke1 Vital Signs: 11:06 Pulse 60; Resp 18; Temp 98.1; Pulse Ox 100% on R/A; Weight 104.33 kg; Height 5 ft. 3 ph in. (160.02 cm); 11:34 BP 115 / 64; Pulse 56; Resp 18 S; Temp 97(O); Pulse Ox 100% on R/A; iw 13:21 Pulse 59; Resp 16; Pulse Ox 100% ; ke1 14:39 BP 103 / 56; Pulse 54; Resp 20; Pulse Ox 99% on R/A; ke1 11:06 Body Mass Index 40.74 (104.33 kg, 160.02 cm) ph ED Course: 10:35 Patient arrived in ED. ds1 10:35 Eric Weaver MD is Private Physician. ds1 11:08 Arm band placed on Patient placed in an exam room. ph 11:10 Triage completed. ph 11:12 Suman Hannah PA is PHCP. cp 11:12 Suman Chapin MD is Attending Physician. cp 11:30 XRAY Chest (1 view) In Process Unspecified. EDMS 11:34 Sneha Tay, RN is Primary Nurse. iw 12:14 Inserted saline lock: 22 gauge in left antecubital area, using aseptic technique. Blood jd3 collected. 15:15 No provider procedures requiring assistance completed. ke1 15:18 Troponin High Sensitivity: repeat draw at 1500 Sent. ke1 15:25 Patient has correct armband on for positive identification. Bed in low position. Call ke1 light in reach. 16:20 IV discontinued. ke1 Administered Medications: 12:22 Drug: fentaNYL (PF) 25 mcg Route: IVP; Site: left antecubital; ke1 12:44 Follow up: Response: Pain is decreased; 7/ ke1 13:15 Follow up: Response: Pain is decreased; Other ke1 13:51 Drug: fentaNYL (PF) 25 mcg Route: IVP; Site: left antecubital; ke1 14:15 Follow up: Response: Pain is decreased; 04/23 ke1 13:52 Drug: Diazepam 5 mg Route: IVP; Site: left antecubital; ke1 14:15 Follow up: Response: No adverse reaction ke1 15:17 Drug: fentaNYL (PF) 25 mcg Route: IVP; Site: left antecubital; ke1 15:45 Follow up: Response: Pain is decreased; Pain is decreased 12/22 ke1 16:05 Drug: Potassium Effervescent Tablet 50 mEq Route: PO; ke1 16:12 Follow up: Response: Medication administered at discharge. ke1 Intake: Outcome: 15:57 Discharge ordered by . joann 16:00 Discharged to home ambulatory. ke1 16:00 Condition: good 16:00 Discharge instructions given to patient. 16:13 Patient left the ED. ke1 Signatures: Dispatcher [employer] EDPR Odilia Todd ds1 Sneha Tay RN RN iw Hall, Patricia, RN RN ph Page, Corey, PA PA cp Davies, Jonathon, RN RN jd3 Ebrottie, Kouassi, RN RN ke1
--- NOTE | 2021-11-04 15:58 | EDPHYS ---
Physician Documentation [facility] Name: Gaurav Beavers Age: 51 yrs Sex: Female : 1970 Arrival Date: 11/04/2021 Time: 10:35 Bed 11 Private MD: Eric Weaver V ED Physician Suman Chapin HPI: 11/04 11:20 This 51 yrs old Female presents to ER via Ambulatory with complaints of Chest cp Tightness and Fall Injury. 11:20 The patient or guardian reports chest pain that is located primarily in the anterior cp chest wall, bilaterally. 11:20 Onset: today. The chest pain is described as tightness. cp 11:22 Patient reports pain to left mid back today after stumble and losing balance. Patient cp reports she did not fall to ground. Patient reports pain to right arm and right leg for past 3 weeks and that she is scheduled to have MRI of cervical and lumbar spine tomorrow. Historical: - Allergies: 11:08 Ibuprofen; ph - PMHx: 11:08 Arthritis; Depression; Hypertension; Rheumatoid arthritis; ph - PSHx: 11:08 cervical fusion; lumbar discectomy; ph - Immunization history:: Client reports receiving the 2nd dose of the Covid vaccine. - Social history:: Smoking status: Patient denies any tobacco usage or history of. ROS: 11:25 Constitutional: Negative for body aches, chills, fever, poor PO intake. cp 11:25 Cardiovascular: Positive for chest tightness. cp 11:25 Respiratory: Positive for shortness of breath, at rest. Negative for cough, wheezing. cp 11:25 Abdomen/GI: Negative for abdominal pain, nausea, vomiting, and diarrhea, bowel cp incontinence. 11:25 Back: Positive for pain at rest, pain with movement, of the left scapular area, right scapular area, left subscapular area and left mid back, Negative for 11:25 : Negative for urinary symptoms, bladder incontinence. cp 11:25 MS/extremity: Positive for pain, of the right arm and right leg, Negative for injury or acute deformity, decreased range of motion. 11:25 Neuro: Negative for altered mental status, headache, numbness, weakness. 11:25 All other systems are negative. Exam: 11:30 Constitutional: The patient appears in no acute distress, alert, awake, cp non-diaphoretic, non-toxic, well developed, well nourished, obese, uncomfortable. 11:30 Head/Face: Normocephalic, atraumatic. cp 11:30 Eyes: Periorbital structures: appear normal, Conjunctiva: normal, no exudate, no injection, Sclera: no appreciated abnormality, Lids and lashes: appear normal, bilaterally. 11:30 ENT: External ear(s): are unremarkable, Nose: is normal, Posterior pharynx: Airway: no evidence of obstruction, patent. 11:30 Neck: ROM/movement: is normal, is supple, without pain, no range of motions limitations. 11:30 Chest/axilla: Inspection: normal. 11:30 Cardiovascular: Rate: normal, Rhythm: regular, Heart sounds: murmur, not appreciated, Edema: is not appreciated, JVD: is not appreciated. 11:30 Respiratory: the patient does not display signs of respiratory distress, Respirations: normal, no use of accessory muscles, no retractions, labored breathing, is not present, Breath sounds: are clear throughout, no decreased breath sounds. 11:30 Abdomen/GI: Inspection: abdomen appears normal, Palpation: abdomen is soft and non-tender, in all quadrants. 11:30 Back: pain, that is moderate, of the left mid back, ROM is painful, with all movement, vertebral tenderness, is not appreciated. 11:30 Neuro: Orientation: to person, place \T\ time. Mentation: is normal, Motor: moves all fours, strength is normal, Sensation: no obvious gross deficits. 12:45 ECG was reviewed by the Attending Physician. cp Vital Signs: 11:06 Pulse 60; Resp 18; Temp 98.1; Pulse Ox 100% on R/A; Weight 104.33 kg; Height 5 ft. 3 ph in. (160.02 cm); 11:34 BP 115 / 64; Pulse 56; Resp 18 S; Temp 97(O); Pulse Ox 100% on R/A; iw 13:21 Pulse 59; Resp 16; Pulse Ox 100% ; ke1 14:39 BP 103 / 56; Pulse 54; Resp 20; Pulse Ox 99% on R/A; ke1 11:06 Body Mass Index 40.74 (104.33 kg, 160.02 cm) ph MDM: 11:12 Patient medically screened. cp 12:00 Differential diagnosis: acute myocardial infarction, anxiety, chest wall pain, cp pericarditis, pneumonia, pneumothorax, thoracic strain, bulging disc, sciatica, spinal stenosis, cauda equina. 15:56 Data reviewed: vital signs, nurses notes, lab test result(s), EKG, radiologic studies, cp plain films. 15:56 Test interpretation: by ED physician or midlevel provider: ECG, plain radiologic cp studies. Counseling: I had a detailed discussion with the patient and/or guardian regarding: the historical points, exam findings, and any diagnostic results supporting the discharge/admit diagnosis, lab results, radiology results, the need for outpatient follow up, a family practitioner, to return to the emergency department if symptoms worsen or persist or if there are any questions or concerns that arise at home. Response to treatment: the patient's symptoms have markedly improved after treatment, VSS. Pain improved with meds. Low suspicion for cardiac cause of chest pain. Initial and repeat EKGs and troponin negative. Will discharge to home for continued monitoring. 11/04 11:19 Order name: Basic Metabolic Panel; Complete Time: 12:57 cp 11/04 12:57 Interpretation: Normal except: K 3.4; GFR 67. cp 11/04 11:19 Order name: CBC with Diff; Complete Time: 12:57 cp 11/04 15:53 Interpretation: Normal except: HGB 11.7; HCT 35.8; MAGDY% 36.5; LYM% 49.7. cp 11/04 11:19 Order name: LFT's; Complete Time: 12:57 cp 11/04 11:19 Order name: Magnesium; Complete Time: 12:57 cp 11/04 11:19 Order name: NT PRO-BNP; Complete Time: 12:57 cp 11/04 11:19 Order name: PT-INR; Complete Time: 12:57 cp 11/04 11:19 Order name: Troponin HS; Complete Time: 12:57 cp 11/04 11:19 Order name: XRAY Chest (1 view); Complete Time: 12:57 cp 11/04 14:56 Order name: Troponin High Sensitivity: repeat draw at 1500 cp 11/04 14:56 Order name: Troponin High Sensitivity; Complete Time: 15:53 EDMS 11/04 11:19 Order name: EKG; Complete Time: 11:19 cp 11/04 11:19 Order name: Cardiac monitoring; Complete Time: 13:52 cp 11/04 11:19 Order name: EKG - Nurse/Tech; Complete Time: 13:52 cp 11/04 11:19 Order name: IV Saline Lock; Complete Time: 12:22 cp 11/04 11:19 Order name: Labs collected and sent; Complete Time: 12:27 cp 11/04 11:19 Order name: O2 Per Protocol; Complete Time: 12: cp 11/04 11:19 Order name: O2 Sat Monitoring; Complete Time: 12:28 cp 11/04 11:19 Order name: Blood Pressure Recheck; Complete Time: 12:14 cp EC:45 Rate is 57 beats/min. Rhythm is regular. [place] interval is normal. QRS interval is normal. cp QT interval is normal. T waves are Inverted in lead aVR. Interpreted by me. Reviewed by me. Administered Medications: 12:22 Drug: fentaNYL (PF) 25 mcg Route: IVP; Site: left antecubital; ke1 12:44 Follow up: Response: Pain is decreased; 03/23 ke1 13:15 Follow up: Response: Pain is decreased; Other ke1 13:51 Drug: fentaNYL (PF) 25 mcg Route: IVP; Site: left antecubital; ke1 14:15 Follow up: Response: Pain is decreased; 04/23 ke1 13:52 Drug: Diazepam 5 mg Route: IVP; Site: left antecubital; ke1 14:15 Follow up: Response: No adverse reaction ke1 15:17 Drug: fentaNYL (PF) 25 mcg Route: IVP; Site: left antecubital; ke1 15:45 Follow up: Response: Pain is decreased; Pain is decreased 12/22 ke1 16:05 Drug: Potassium Effervescent Tablet 50 mEq Route: PO; ke1 16:12 Follow up: Response: Medication administered at discharge. ke1 Disposition Summary: 11/04/21 15:57 Discharge Ordered Location: Home cp Problem: new cp Symptoms: have improved cp Condition: Stable cp Diagnosis - Dorsalgia, unspecified cp - Pain in right arm cp - Pain in right leg cp - Chest pain, unspecified cp Followup: cp - With: Private Physician - When: 2 - 3 days - Reason: Recheck today's complaints Discharge Instructions: - Discharge Summary Sheet cp - Acute Back Pain, Adult cp - Nonspecific Chest Pain, Adult cp - Aspirin and Your Heart cp Forms: - Medication Reconciliation Form cp - Thank You Letter cp - Antibiotic Education cp - Prescription Opioid Use cp Prescriptions: - Baclofen 10 mg Oral Tablet - take 1 tablet by ORAL route 3 times per day; 20 tablet; Refills: 0, Product cp Selection Permitted - Medrol (Erasto) 4 mg Oral Tablets, Dose Pack - take 1 tablet by ORAL route as directed - follow package instructions; 1 cp packet; Refills: 0, Product Selection Permitted - Tylenol-Codeine #3 300 mg-30 mg Oral - take 2 tablet by ORAL route every 8-10 hours; 15 tablet; Refills: 0, Product cp Selection Permitted Signatures: Dispatcher [employer] Iram Fierro RN RN ph Suman Hannah, PA PA cp Key George RN RN ke1 Corrections: (The following items were deleted from the chart) 11/05 15:35 11/04 11:25 Abdomen/GI: Negative for abdominal pain, nausea, vomiting, and diarrhea, cp cp 11/05 15:35 11/04 11:25 Back: Positive for pain at rest, pain with movement, of the left scapular cp area, right scapular area, left subscapular area and left mid back, cp
[2021-11-04] MEDS ORDERED: POTASSIUM 25 MEQ EFFERV TAB ONE (16:01)
[2021-11-04 16:53] VITALS: TEMP 97
[2021-11-04 16:55] VITALS: BP 103/56; O2SAT 99
--- NOTE | 2021-11-05 07:24 | EKG ---
Test Date: 2021-11-04 Test Time: 12:38:02 Teletype Clerk: MILLY MEASUREMENT RESULTS: Intervals: Rate: 57 CO: 168 QRSD: 100 QT: 448 QTc: 436 [place]: P: 53 CO: 168 QRS: 75 T: 54 INTERPRETIVE STATEMENTS: Sinus bradycardia Possible Left atrial enlargement Low voltage QRS Borderline ECG Compared to ECG 01/16/2017 07:11:07 Sinus rhythm no longer present Electronically Signed On 11-05-21 07:22:41 HAND SCREEN PRINTER by Seng Johnson
== END 2021-11-04 16:13 | disposition home or self-care (01) ==
LOC: ER 10:35
DX: R07.9 Chest pain, unspecified (principal); M54.9 Dorsalgia, unspecified; M79.601 Pain in right arm; M79.604 Pain in right leg; I10 Essential (primary) hypertension; Z88.6 Allergy status to analgesic agent
CPT/HCPCS: 93005; 85025; 80048; 36415; 83735; 85610; 80076; 84484 ×2; 83880; 71045; 96375; 96374; 99284; J3360; J3010 ×3

== ENCOUNTER 2022-10-28 10:19 | Observation (INO) | payer OTHER ==
--- OUTSIDE RECORDS SUMMARY | 2022-10-28 10:24 | XMS REPORT | Continuity of Care Document ---
:1970 Author Organization [facility] t Address [address] [place] [address] Dr. Ju[address]. [address] [place] [address] Care Team Providers Name Role Phone Pcp, Patient Does Not Have A Primary Care Physician [phone] Murphy Penn MD Attending Clinician STERLING_Huang_Drake_MOI Attending Clinician Unavailable Nura FITZGERALD, Dee Dee Lau Attending Clinician Drake Encinas Attending Clinician Unavailable David Nation MD Attending Clinician Catherine Escobar APRN Attending Clinician Provider, Unknown Attending Clinician Unavailable Donald Bell MD Attending Clinician [phone] Rocky Meyer NP, Bernice Attending Clinician ELVIA WEINBERG Attending Clinician Unavailable Therapy, [facility] Attending Clinician Unavailable Elvia Weinberg MD Attending Clinician Doctor Unassigned, [place] Attending Clinician Unavailable MARIBELL COREA M.D. Attending Clinician Unavailable Ashish Shah Attending Clinician Lamberto Decker Attending Clinician NIKITA HOGAN M.D. 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 00:00: di c 00 Sports Medicin e 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, sthesis, 7-20 st site site 00:00: Hospita unspecifie unspecifie 00 l d d Cervical Cervical Problem Active Azale a radiculopa Radiculopa 5-31 Or thope thy thy 00:00: dic 00 Sports Medicin e Radiculopa Radiculopa Disease Active M ethodi thy, thy, 02-03 st cervical cervical 00:00: Hospit a region region 00 l UNK UNK Diagnosis Active 2017-092018-08-07 Mem oria Active 15:20:00 l 07/02/2018 00:00: Elder garvey 00 [facility] Spinal Spinal Disease Active Univers stenosis stenosis 1-26 ity of in in 00:00: [place] cervical cervical 00 Medica l region region Branch History of History of Problem Resolve [facility] Rheumatoid Rheumatoid d Ph ysici arthritis arthritis ans Depression Depression Problem Active U T Physici ans History of History of Problem Resolve UT H/O H/O d Physici lumbosacra lumbosacra an s l spine l spine surgery surgery Screening Screening Problem Active UT examinatio examinatio Ph ysici n for n for ans pulmonary pulmonary tuberculos tuberculos is 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 [place]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 ans Urinary Urinary Problem Active UT incontinen incontinen Ph ysici ce ce ans Cervical Cervical Problem Active UT radiculopa radiculopa Ph ysici thy thy ans Osteoarthr Osteoarthr Problem Active U T itis, itis, Physici localized, localized, an s knee knee Lumbar Lumbar Problem Active UT radiculopa radiculopa Ph ysici thy thy ans 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 s thy thy Encounter Encounter Problem Active UT for for Physici long-term long-term ans (current) (current) use of use of medication medication s s Eosinophil Eosinophil Problem Active U T ia ia Physici ans Seronegati Seronegati Problem Active U T ve ve Physici rheumatoid rheumatoid an s arthritis arthritis Allergies, Adverse Reactions, Alerts Allergy Allergy Status Severity Reaction(s) Onset Inactive Treating Comm ents Source Name Type Date Date Clinician Upadacit Propensi Active Shortness Of Methodi inib ty to Breath 7-08 st adverse 00:00: Hospita reaction 00 l s to drug Nsaids Propensi Active Anaphylaxis SOB and Me thodi (Non-Larry ty to 5-[address] roidal adverse 00:00: swelling Hospita Anti-Inf reaction 00 l lammator s to y Drug) drug NSAIDS Drug Active SOB Univers (NON-LARRY Class 8-26 ity of ROIDAL 00:00: [place] ANTI-INF 00 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 Branch Y DRUG) Nsaids Propensi Active Shortness of Un law (Non-Larry ty to Breath 8-26 ity of roidal adverse 00:00: [place] Anti-Inf reaction 00 Medica l lammator s Branch y Drug) Aspirin Allergy Active UT TABS to drug Physici (finding ans ) NSAIDs Allergy Active UT to drug Physici (finding ans ) NO KNOWN Drug Active Univers ALLERGIE Class ity of S [facility] Family History Family Member Diagnosis Comments Start Date Stop Date Source Mother Family history of [facility] Phys icians rheumatoid arthritis Mother Family history of essential [facility] hypertension Sister Family history of essential [facility] hypertension Social History Social Habit Start Date Stop Date Quantity Comments Source Alcohol intake 2022-04-04 2022-04-04 Ex-drinker [facility] 00:00:00 00:00:00 (finding) Hospital Tobacco use and 2022-01-20 2022-01-20 Smokeless tobacco Me thodist exposure 00:00:00 00:00:00 non-user Hospital Sex Assigned At [birth year] [facility] 00:00:00 00:00:00 Hospital Smoking Status Start Date Stop Date Source Unknown if ever smoked [facility] Never smoked tobacco [facility] H ospital Medications Ordered Filled Start Stop Current Ordering Indication Dosage Frequency Signature Comments Components Source Medication Medication Date Date Medication? Clinician (SIG) Name Name cyclobenzap Yes 10mg QD Take 10 mg Methodi rine 04-[address] (FLEXERIL) 15:26: nightly. Hos dale 10 mg 02 l tablet diazePAM 2021- No [id number] 2.5mg [id number] Take 0.5 Methodi (VALIUM) 5 04-04 08- [id number] MG tablet 00:00: 04:59 3D (2.5 mg [facility] 00 :00 total) by l mouth 3 (three) times a day as needed for muscle spasms (severe muscle spasm) for up to 10 days. methocarbam 2021- No 750mg Q.25D Take 1 M ethodi oL 04-[address] (Robaxin-75 00:00: 04:59 (750 mg Ho spita 0) 750 MG 00 :00 total) by l tablet mouth 4 (four) times a day as needed for muscle spasms for up to 10 days. HYDROcodone 2021- No [id number] 1{tbl} Q4H Take 1 Methodi -acetaminop 04-[address] hen ([x+1]) 00:00: 04:59 mouth [facility] 10-325 mg 00 :00 every 4 l per tablet (four) hours as needed for moderate pain for up to 10 days .acute pain. Max Daily Amount: 6 tablets HYDROcodone 2021- No [id number] 1{tbl} Q4H Take 1 Methodi -acetaminop 04-[address] hen ([employer]) 00:00: 04:59 mouth [facility] 10-325 mg 00 :00 every 4 l per tablet (four) hours as needed (pain) for up to 10 days .acute pain. Max Daily Amount: 6 tablets diazePAM 2021- No 2.5mg [id number] Take 0.5 Methodi (VALIUM) 5 04-03- [id number] tablets st MG tablet 00:00: 00:00 3D (2.5 mg [facility] 00 :00 total) by l mouth 3 (three) times a day as needed for muscle spasms (severe muscle spasm) for up to 10 days. methocarbam 2021- No 750mg Q.25D Take 1 M ethodi oL -03 04-[address] (Robaxin-75 00:00: 00:00 (750 mg Ho spita 0) 750 MG 00 :00 total) by l tablet mouth 4 (four) times a day as needed for muscle spasms for up to 10 days. diazePAM 2021- No 2.5mg Q8H Take 0.5 Met hodi (VALIUM) 5 04-03- tablets st MG tablet 00:00: 00:00 (2.5 mg [facility] 00 :00 total) by l mouth every 8 (eight) hours as needed for muscle spasms (severe muscle spasm) for up to 10 days. methocarbam 2021- No 500mg Q6H Take 1 Me thodi oL 02-04-[address] (ROBAXIN) 00:00: 00:00 (500 mg [facility] 500 MG 00 :00 total) by l tablet mouth every 6 (six) hours as needed for muscle spasms. cyclobenzap 2021- No 10mg QD Take 10 mg Methodi rine 01-20-[address] (FLEXERIL) 00:00: 00:00 nightly. Ho spita 10 mg 00 :00 l tablet traMADoL Yes 50mg QD Take 50 mg Met hodi (ULTRAM) 50 - by mouth st mg tablet 00:00: nightly as Ho spita 00 needed. l Rinvoq 15 2021- No 15mg QD Take 15 mg M ethodi mg tablet 01-[address] extended 00:00: 00:00 daily. Hospit a release 00 :00 Last dose l hr ER per tablet mildred shearer MD is 01/24/2022 gabapentin 2021-0 Yes 1800mg Q.5D Take 1,800 Methodi (NEURONTIN) 4-[address] 600 mg 00:00: mouth 2 Hospita tablet 00 (two) l times a day. famotidine 2022-0 Yes 20mg QD Take 20 mg M ethodi (PEPCID) 20 4-[address] MG tablet 00:00: nightly. [facility] 00 l omeprazole Yes 40mg QD Take 40 mg M ethodi (PriLOSEC) 4-[address] 40 MG 00:00: daily. Hospita capsule 00 l bisoproloL- Yes 1{tbl} QD Take 1 Me thodi hydrochloro 3-[address] thiazide 00:00: mouth Hospita (ZIAC) 00 daily. l 5-6.25 mg per tablet traZODone 2020-09 Yes 50mg QD Take 50 mg Me thodi (DESYREL) 0-[address] 50 MG 00:00: nightly. Hospita tablet 00 l casirivimab 2020- No [id number] 1200mg 1,200 mg, Univers -imdevimab 05-09 IV ity of 1200 mg in 22:15: 21:41 Infusion, [place] 60 mL NS 00 :00 ONCE, Medical MINI-BAG Administer Branc h over 20 Minutes, Bridgette 05/09/21 at 1715, For 1 dose
Ad ore feeder as an IV infusion via pump or gravity through an intravenou s line containing a sterile, in-line or add-on 0.2-micron polyethers ulfone (PES) filter. Stable 36 hours refrigerat ed; 4 hours at room temperatur e.
fenofibrate Yes 160mg QD Take 160 M ethodi (LOFIBRA) 4-[address] 160 MG 00:00: mouth Hospita tablet 00 nightly. l Rinvoq 15 Rinvoq 15 Yes MARIBELL take one UT MG Oral MG Oral 2-19 COREA pill po Phys ici Tablet Tablet 00:00: M.D. daily ans Extended Extended 00 Release 24 Release 24 Hour Hour Leflunomide Leflunomide Yes MARIBELL TAKE 1 UT 20 MG Oral 20 MG Oral 9-21 OCREA TABLET BY Physici Tablet Tablet 00:00: M.D. MOUTH ans 00 EVERY DAY predniSONE predniSONE Yes MARIBELL TAKE 2 UT 5 MG Oral 5 MG Oral 1-11 COREA TABLETS BY Physici Tablet Tablet 00:00: M.D. MOUTH ans 00 EVERY DAY predniSONE 2019-0 Yes 2{tbl} Take 2 Met hodi (DELTASONE) 1-[address] 5 mg tablet 00:00: mouth as Ho spita 00 needed. l EPINEPHrine EPINEPHrine 2018-09 Yes MARIBELL FOR SEVERE UT 0.3 0.3 1-08 COREA ALLERGIC Physici MG/0.3ML MG/0.3ML 00:00: M.D. REACTION: ans Injection Injection 00 INJECT Solution Solution INTRAMUSCU Auto-inject Auto-inject LARLY INTO or or THIGH MUSCLE. CALL 911. IF SYMPTOMS CONTINUE MAY REPEAT IN 5-15 MINUTES. Gabapentin Gabapentin Yes ZIGZAG TUNNEL ELASTIC OPERATOR Q0.25D TAKE 1 UT 600 MG Oral 600 MG Oral 6-20 TABLET 4 Physici Tablet Tablet 00:00: TIMES ans 00 DAILY. [facility] 2015-09 Yes MARIBELL TAKE UT Acetaminoph Acetaminoph 2-09 COREA 325-650MG Physici en 325 MG en 325 MG 00:00: M.D. (1-2 TABS) ans Oral Tablet Oral Tablet 00 BY MOUTH 30 MINUTES PRIOR TO INFUSION. MAY REPEAT EVERY 4-6 HOURS NEEDED FOR ACHES, PAIN OR FEVER. traMADol traMADol Yes MARIBELL TAKE ONE UT HCl - 50 MG HCl - 50 MG 4-08 COREA (1) Physici Oral Tablet Oral Tablet 00:00: M.D. TABLET(S) ans 00 BY MOUTH EVERY EIGHT HOURS NEEDED. Multivitami Multivitami 2011-09 Yes ZIGZAG TUNNEL ELASTIC OPERATOR 1 QD TAKE 1 UT ns TABS ns TABS 1-21 TABLET Physici 00:00: DAILY. ans 00 DULoxetine DULoxetine Yes MARIBELL TAKE ONE UT HCl - 60 MG HCl - 60 MG 5-03 COREA CAPSULE BY Physici Oral Oral 00:00: M.D. MOUTH ans Capsule Capsule 00 DAILY Delayed Delayed Release Release Particles Particles DULoxetine Yes 1{capsu Q.5D Take 1 Me thodi (CYMBALTA) 5-03 le} capsule by st 60 MG 00:00: mouth 2 Hospita capsule 00 (two) l times a day. Cyclobenzap Cyclobenzap Yes MARIBELL TAKE 1 UT rine HCl - rine HCl - 2-23 COREA TABLET BY Physici 10 MG Oral 10 MG Oral 00:00: M.D. MOUTH ans Tablet Tablet 00 EVERY DAY AT BEDTIME NEEDED Lidocaine 5 Lidocaine 5 Yes MARIBELL APPLY 1 TO UT % External % External 2-23 COREA 3 PATCHES Physici Patch Patch 00:00: M.D. TO ans 00 AFFECTED AREA FOR 12 HOURS ON AND 12 HOURS OFF Celecoxib Celecoxib Yes MARIBELL Take 1 UT 200 MG Oral 200 MG Oral 2-23 COREA capsule by Physici Capsule Capsule 00:00: M.D. mouth ans 00 twice a day BISACODYL Yes 1 Univers 10 MG 1-27 Suppositor ity of RECTAL SUPP 00:00: [place] 00 [facility] CYCLOBENZAP Yes 1 Tab Oral Univers RINE 10 MG 1-27 TID ity of ORAL TAB 00:00: [facility] BISACODYL Yes 1 Univers 10 MG 1-27 Suppositor ity of RECTAL SUPP 00:00: [place] [facility] CYCLOBENZAP Yes 1 Tab Oral Univers RINE 10 MG 1-27 TID ity of ORAL TAB 00:00: [address] HYDROCODONE 0 Yes 1 Tab Oral Univers -ACETAMINOP 1-26 Q4HPRN ity of HEN 5-325 00:00: [place] MG ORAL TAB 00 [facility] DOCUSATE 0 Yes 1 Cap Oral Uni vers SODIUM 100 1-26 BID ity of MG ORAL CAP 00:00: [address] HYDROCODONE 0 Yes 1 Tab Oral Univers -ACETAMINOP 1-26 Q4HPRN ity of HEN 5-325 00:00: [place] MG ORAL TAB 00 [facility] DOCUSATE 0 Yes 1 Cap Oral Uni vers SODIUM 100 1-26 BID ity of MG ORAL CAP 00:00: [address] acetaminoph acetaminoph No acetaminop Leslee en 300 en 300 hen 300 [facility] mg-codeine mg-codeine mg-codeine dic 30 mg 30 mg 30 mg Sports tablet TAKE tablet TAKE tablet Medicin 2 TABLETS 2 TABLETS TAKE 2 e BY MOUTH BY MOUTH TABLETS BY EVERY 8-10 EVERY 8-10 MOUTH HOURS HOURS EVERY 8-10 HOURS baclofen 10 baclofen 10 No baclofen Leslee mg tablet mg tablet 10 mg Orth ope TAKE 1 TAKE 1 tablet dic TABLET BY TABLET BY TAKE 1 Spo rts MOUTH THREE MOUTH THREE TABLET BY Medicin TIMES A DAY TIMES A DAY MOUTH e THREE TIMES A DAY benzonatate benzonatate No benzonatat Leslee 100 mg 100 mg e 100 mg [facility] capsule capsule capsule dic TAKE 1 TAKE 1 TAKE 1 Sports CAPSULE BY CAPSULE BY CAPSULE BY Medicin MOUTH 3 MOUTH 3 MOUTH 3 e TIMES A DAY TIMES A DAY TIMES A NEEDED NEEDED DAY FOR COUGH FOR COUGH NEEDED FOR COUGH bisoprolol bisoprolol No bisoprolol Leslee 5 5 5 [facility] mg-hydrochl mg-hydrochl mg-hydroch dic orothiazide orothiazide lorothiazi Sports 6.25 mg 6.25 mg de 6.25 mg Med icin tablet TAKE tablet TAKE tablet e 1 TABLET BY 1 TABLET BY TAKE 1 MOUTH EVERY MOUTH EVERY TABLET BY DAY DAY MOUTH EVERY DAY celecoxib celecoxib No celecoxib Leslee 200 mg 200 mg 200 mg [facility] capsule capsule capsule dic TAKE 1 TAKE 1 TAKE 1 Sports CAPSULE BY CAPSULE BY CAPSULE BY Medicin MOUTH TWICE MOUTH TWICE MOUTH e A DAY A DAY TWICE A DAY ciprofloxac ciprofloxac No ciprofloxa Leslee in 500 mg in 500 mg ashanti 500 mg [facility] tablet TAKE tablet TAKE tablet dic 1 TABLET BY 1 TABLET BY TAKE 1 Sports MOUTH TWICE MOUTH TWICE TABLET BY Medicin A DAY A DAY MOUTH e TWICE A DAY cyclobenzap cyclobenzap No cyclobenza Leslee rine 10 mg rine 10 mg david 10 [facility] tablet TAKE tablet TAKE mg tablet dic 1 TABLET BY 1 TABLET BY TAKE 1 Sports MOUTH EVERY MOUTH EVERY TABLET BY Medicin DAY AT DAY AT MOUTH e BEDTIME BEDTIME EVERY DAY NEEDED NEEDED AT BEDTIME NEEDED duloxetine duloxetine No duloxetine Leslee 60 mg 60 mg 60 mg [facility] capsule,del capsule,del capsule,de dic ayed ayed layed Sports release release release Medici n TAKE 1 TAKE 1 TAKE 1 e CAPSULE BY CAPSULE BY CAPSULE BY MOUTH TWICE MOUTH TWICE MOUTH A DAY WITH A DAY WITH TWICE A FOOD FOOD DAY WITH FOOD famotidine famotidine No famotidine Leslee 20 mg 20 mg 20 mg [facility] tablet TAKE tablet TAKE tablet dic 1 TABLET BY 1 TABLET BY TAKE 1 Sports MOUTH EVERY MOUTH EVERY TABLET BY Medicin DAY AT DAY AT MOUTH e BEDTIME BEDTIME EVERY DAY AT BEDTIME fenofibrate fenofibrate No fenofibrat Leslee 160 mg 160 mg e 160 mg [facility] tablet TAKE tablet TAKE tablet dic 1 TABLET BY 1 TABLET BY TAKE 1 Sports MOUTH EVERY MOUTH EVERY TABLET BY Medicin DAY DAY MOUTH e EVERY DAY gabapentin gabapentin No gabapentin Leslee 600 mg 600 mg 600 mg [facility] tablet TAKE tablet TAKE tablet dic 3 TABLETS 3 TABLETS TAKE 3 Spo rts BY MOUTH BY MOUTH TABLETS BY M edicin TWICE A DAY TWICE A DAY MOUTH e TWICE A DAY leflunomide leflunomide No leflunomid Leslee 20 mg 20 mg e 20 mg [facility] tablet TAKE tablet TAKE tablet dic 1 TABLET BY 1 TABLET BY TAKE 1 Sports MOUTH EVERY MOUTH EVERY TABLET BY Medicin DAY DAY MOUTH e EVERY DAY methocarbam methocarbam No methocarba Leslee ol 500 mg ol 500 mg mol 500 mg [facility] tablet TAKE tablet TAKE tablet dic 1 TABLET BY 1 TABLET BY TAKE 1 Sports MOUTH EVERY MOUTH EVERY TABLET BY Medicin 6 HOURS 6 HOURS MOUTH e NEEDED FOR NEEDED FOR EVERY 6 MUSCLE MUSCLE HOURS SPASMS. SPASMS. NEEDED FOR MUSCLE SPASMS. methylpredn methylpredn No methylpred Leslee isolone 4 isolone 4 nisolone 4 [facility] mg tablets mg tablets mg tablets dic in a dose in a dose in a dose Sports pack TAKE 6 pack TAKE 6 pack TAKE Medicin TABLETS ON TABLETS ON 6 TABLETS e DAY 1 DAY 1 ON DAY 1 DIRECTED ON DIRECTED ON PACKAGE AND PACKAGE AND DIRECTED DECREASE BY DECREASE BY ON PACKAGE 1 TAB EACH 1 TAB EACH AND DAY FOR A DAY FOR A DECREASE TOTAL OF 6 TOTAL OF 6 BY 1 TAB DAYS DAYS EACH DAY FOR A TOTAL OF 6 DAYS metoclopram metoclopram No metoclopra Leslee roxanne 10 mg roxanne 10 mg mide 10 mg [facility] tablet TAKE tablet TAKE tablet dic 3 TABLETS 3 TABLETS TAKE 3 Spo rts BY MOUTH BY MOUTH TABLETS BY Medicin DIRECTED DIRECTED MOUTH e USE USE DIRECTED DIRECTED DIRECTED USE PER YOUR PER YOUR DIRECTED COLONOSCOPY COLONOSCOPY PER YOUR PREP PACKET PREP PACKET COLONOSCOP Y PREP PACKET omeprazole omeprazole No omeprazole Leslee 20 mg 20 mg 20 mg [facility] capsule,del capsule,del capsule,de dic ayed ayed layed Sports release release release Medici n TAKE 1 TAKE 1 TAKE 1 e CAPSULE BY CAPSULE BY CAPSULE BY MOUTH EVERY MOUTH EVERY MOUTH MORNING MORNING EVERY MORNING omeprazole omeprazole No omeprazole Leslee 40 mg 40 mg 40 mg [facility] capsule,del capsule,del capsule,de dic ayed ayed layed Sports release release release Medici n TAKE 1 TAKE 1 TAKE 1 e CAPSULE BY CAPSULE BY CAPSULE BY MOUTH EVERY MOUTH EVERY MOUTH DAY DAY EVERY DAY prednisone prednisone No prednisone Leslee 10 mg 10 mg 10 mg [facility] tablet 3 tablet 3 tablet 3 dic TABS ORALLY TABS ORALLY TABS S ports DAILY FOR 2 DAILY FOR 2 ORALLY Medicin DAYS, THEN DAYS, THEN DAILY FOR e 2 TABS 2 TABS 2 DAYS, DAILY FOR 2 DAILY FOR 2 THEN 2 DAYS, THEN DAYS, THEN TABS DAILY 1 TAB DAILY 1 TAB DAILY FOR 2 FOR 2 DAYS. FOR 2 DAYS. DAYS, THEN 1 TAB DAILY FOR 2 DAYS. prednisone prednisone No prednisone Leslee 5 mg tablet 5 mg tablet 5 mg O rthope TAKE 2 TAKE 2 tablet dic TABLETS BY TABLETS BY TAKE 2 S ports MOUTH EVERY MOUTH EVERY TABLETS BY Medicin DAY DAY MOUTH e EVERY DAY promethazin promethazin No promethazi Leslee e-DM 6.25 e-DM 6.25 ne-DM 6.25 [facility] mg-15 mg/5 mg-15 mg/5 mg-15 mg/5 dic mL oral mL oral mL oral Sports syrup ONE syrup ONE syrup ONE Medicin TEA-SPOONFU TEA-SPOONFU TEA-SPOONF e L BY MOUTH L BY MOUTH UL BY 4 TIMES A 4 TIMES A MOUTH 4 DAY DAY TIMES A NEEDED FOR NEEDED FOR DAY COUGH COUGH NEEDED FOR COUGH Rinvoq 15 Rinvoq 15 No Rinvoq 15 Leslee mg mg mg [facility] tablet,exte tablet,exte tablet,ext dic nded nded ended Sports release release release Medici n e Suprep Suprep No Suprep Leslee Bowel Prep Bowel Prep Bowel Prep [facility] Kit 17.5 Kit 17.5 Kit 17.5 dic gram-3.13 gram-3.13 gram-3.13 Sports gram-1.6 gram-1.6 gram-1.6 Med icin gram oral gram oral gram oral e solution solution solution TAKE 1 UNIT TAKE 1 UNIT TAKE 1 BY MOUTH BY MOUTH UNIT BY DIRECTED DIRECTED MOUTH USED USED DIRECTED DIRECTED BY DIRECTED BY USED YOUR YOUR DIRECTED COLONOSCOPY COLONOSCOPY BY YOUR PACKET PACKET COLONOSCOP INSTRUCTION INSTRUCTION Y PACKET S S INSTRUCTIO NS tramadol 50 tramadol 50 No tramadol Leslee mg tablet mg tablet 50 mg Orth ope TAKE 1 TAKE 1 tablet dic TABLET BY TABLET BY TAKE 1 Spo rts MOUTH EVERY MOUTH EVERY TABLET BY Medicin DAY DAY MOUTH e NEEDED NEEDED EVERY DAY NEEDED trazodone trazodone No trazodone Leslee 50 mg 50 mg 50 mg [facility] tablet TAKE tablet TAKE tablet dic 1 TABLET BY 1 TABLET BY TAKE 1 Sports MOUTH EVERY MOUTH EVERY TABLET BY Medicin DAY AT DAY AT MOUTH e BEDTIME FOR BEDTIME FOR EVERY DAY INSOMNIA INSOMNIA AT BEDTIME FOR INSOMNIA acetaminoph acetaminoph No acetaminop Leslee en 300 en 300 hen 300 [facility] mg-codeine mg-codeine mg-codeine dic 30 mg 30 mg 30 mg Sports tablet TAKE tablet TAKE tablet Medicin 2 TABLETS 2 TABLETS TAKE 2 e BY MOUTH BY MOUTH TABLETS BY EVERY 8-10 EVERY 8-10 MOUTH HOURS HOURS EVERY 8-10 HOURS baclofen 10 baclofen 10 No baclofen Leslee mg tablet mg tablet 10 mg Orth ope TAKE 1 TAKE 1 tablet dic TABLET BY TABLET BY TAKE 1 Spo rts MOUTH THREE MOUTH THREE TABLET BY Medicin TIMES A DAY TIMES A DAY MOUTH e THREE TIMES A DAY benzonatate benzonatate No benzonatat Leslee 100 mg 100 mg e 100 mg [facility] capsule capsule capsule dic TAKE 1 TAKE 1 TAKE 1 Sports CAPSULE BY CAPSULE BY CAPSULE BY Medicin MOUTH 3 MOUTH 3 MOUTH 3 e TIMES A DAY TIMES A DAY TIMES A NEEDED NEEDED DAY FOR COUGH FOR COUGH NEEDED FOR COUGH bisoprolol bisoprolol No bisoprolol Leslee 5 5 5 [facility] mg-hydrochl mg-hydrochl mg-hydroch dic orothiazide orothiazide lorothiazi Sports 6.25 mg 6.25 mg de 6.25 mg Med icin tablet TAKE tablet TAKE tablet e 1 TABLET BY 1 TABLET BY TAKE 1 MOUTH EVERY MOUTH EVERY TABLET BY DAY DAY MOUTH EVERY DAY celecoxib celecoxib No celecoxib Leslee 200 mg 200 mg 200 mg [facility] capsule capsule capsule dic TAKE 1 TAKE 1 TAKE 1 Sports CAPSULE BY CAPSULE BY CAPSULE BY Medicin MOUTH TWICE MOUTH TWICE MOUTH e A DAY A DAY TWICE A DAY ciprofloxac ciprofloxac No ciprofloxa Leslee in 500 mg in 500 mg ashanti 500 mg [facility] tablet TAKE tablet TAKE tablet dic 1 TABLET BY 1 TABLET BY TAKE 1 Sports MOUTH TWICE MOUTH TWICE TABLET BY Medicin A DAY A DAY MOUTH e TWICE A DAY cyclobenzap cyclobenzap No cyclobenza Leslee rine 10 mg rine 10 mg david 10 [facility] tablet TAKE tablet TAKE mg tablet dic 1 TABLET BY 1 TABLET BY TAKE 1 Sports MOUTH EVERY MOUTH EVERY TABLET BY Medicin DAY AT DAY AT MOUTH e BEDTIME BEDTIME EVERY DAY NEEDED NEEDED AT BEDTIME NEEDED duloxetine duloxetine No duloxetine Leslee 60 mg 60 mg 60 mg [facility] capsule,del capsule,del capsule,de dic ayed ayed layed Sports release release release Medici n TAKE 1 TAKE 1 TAKE 1 e CAPSULE BY CAPSULE BY CAPSULE BY MOUTH TWICE MOUTH TWICE MOUTH A DAY WITH A DAY WITH TWICE A FOOD FOOD DAY WITH FOOD famotidine famotidine No famotidine Leslee 20 mg 20 mg 20 mg [facility] tablet TAKE tablet TAKE tablet dic 1 TABLET BY 1 TABLET BY TAKE 1 Sports MOUTH EVERY MOUTH EVERY TABLET BY Medicin DAY AT DAY AT MOUTH e BEDTIME BEDTIME EVERY DAY AT BEDTIME fenofibrate fenofibrate No fenofibrat Leslee 160 mg 160 mg e 160 mg [facility] tablet TAKE tablet TAKE tablet dic 1 TABLET BY 1 TABLET BY TAKE 1 Sports MOUTH EVERY MOUTH EVERY TABLET BY Medicin DAY DAY MOUTH e EVERY DAY gabapentin gabapentin No gabapentin Leslee 600 mg 600 mg 600 mg [facility] tablet TAKE tablet TAKE tablet dic 3 TABLETS 3 TABLETS TAKE 3 Spo rts BY MOUTH BY MOUTH TABLETS BY Azucena bosch TWICE A DAY TWICE A DAY MOUTH e TWICE A DAY leflunomide leflunomide No leflunomid Leslee 20 mg 20 mg e 20 mg [facility] tablet TAKE tablet TAKE tablet dic 1 TABLET BY 1 TABLET BY TAKE 1 Sports MOUTH EVERY MOUTH EVERY TABLET BY Medicin DAY DAY MOUTH e EVERY DAY methocarbam methocarbam No methocarba Leslee ol 500 mg ol 500 mg mol 500 mg [facility] tablet TAKE tablet TAKE tablet dic 1 TABLET BY 1 TABLET BY TAKE 1 Sports MOUTH EVERY MOUTH EVERY TABLET BY Medicin 6 HOURS 6 HOURS MOUTH e NEEDED FOR NEEDED FOR EVERY 6 MUSCLE MUSCLE HOURS SPASMS. SPASMS. NEEDED FOR MUSCLE SPASMS. methylpredn methylpredn No methylpred Leslee isolone 4 isolone 4 nisolone 4 [facility] mg tablets mg tablets mg tablets dic in a dose in a dose in a dose Sports pack TAKE 6 pack TAKE 6 pack TAKE Medicin TABLETS ON TABLETS ON 6 TABLETS e DAY 1 DAY 1 ON DAY 1 DIRECTED ON DIRECTED ON PACKAGE AND PACKAGE AND DIRECTED DECREASE BY DECREASE BY ON PACKAGE 1 TAB EACH 1 TAB EACH AND DAY FOR A DAY FOR A DECREASE TOTAL OF 6 TOTAL OF 6 BY 1 TAB DAYS DAYS EACH DAY FOR A TOTAL OF 6 DAYS metoclopram metoclopram No metoclopra Leslee roxanne 10 mg roxanne 10 mg mide 10 mg [facility] tablet TAKE tablet TAKE tablet dic 3 TABLETS 3 TABLETS TAKE 3 Spo rts BY MOUTH BY MOUTH TABLETS BY Medicin DIRECTED DIRECTED MOUTH e USE USE DIRECTED DIRECTED DIRECTED USE PER YOUR PER YOUR DIRECTED COLONOSCOPY COLONOSCOPY PER YOUR PREP PACKET PREP PACKET COLONOSCOP Y PREP PACKET omeprazole omeprazole No omeprazole Leslee 20 mg 20 mg 20 mg [facility] capsule,del capsule,del capsule,de dic ayed ayed layed Sports release release release Medici n TAKE 1 TAKE 1 TAKE 1 e CAPSULE BY CAPSULE BY CAPSULE BY MOUTH EVERY MOUTH EVERY MOUTH MORNING MORNING EVERY MORNING omeprazole omeprazole No omeprazole Leslee 40 mg 40 mg 40 mg Orthope capsule,del capsule,del capsule,de dic ayed ayed layed Sports release release release Medici n TAKE 1 TAKE 1 TAKE 1 e CAPSULE BY CAPSULE BY CAPSULE BY MOUTH EVERY MOUTH EVERY MOUTH DAY DAY EVERY DAY prednisone prednisone No prednisone Leslee 10 mg 10 mg 10 mg Orthope tablet 3 tablet 3 tablet 3 dic TABS ORALLY TABS ORALLY TABS S ports DAILY FOR 2 DAILY FOR 2 ORALLY Medicin DAYS, THEN DAYS, THEN DAILY FOR e 2 TABS 2 TABS 2 DAYS, DAILY FOR 2 DAILY FOR 2 THEN 2 DAYS, THEN DAYS, THEN TABS DAILY 1 TAB DAILY 1 TAB DAILY FOR 2 FOR 2 DAYS. FOR 2 DAYS. DAYS, THEN 1 TAB DAILY FOR 2 DAYS. prednisone prednisone No prednisone Leslee 5 mg tablet 5 mg tablet 5 mg O rthope TAKE 2 TAKE 2 tablet dic TABLETS BY TABLETS BY TAKE 2 S ports MOUTH EVERY MOUTH EVERY TABLETS BY Medicin DAY DAY MOUTH e EVERY DAY promethazin promethazin No promethazi Leslee e-DM 6.25 e-DM 6.25 ne-DM 6.25 Orthope mg-15 mg/5 mg-15 mg/5 mg-15 mg/5 dic mL oral mL oral mL oral Sports syrup ONE syrup ONE syrup ONE Medicin TEA-SPOONFU TEA-SPOONFU TEA-SPOONF e L BY MOUTH L BY MOUTH UL BY 4 TIMES A 4 TIMES A MOUTH 4 DAY DAY TIMES A NEEDED FOR NEEDED FOR DAY COUGH COUGH NEEDED FOR COUGH Rinvoq 15 Rinvoq 15 No Rinvoq 15 Leslee mg mg mg Orthope tablet,exte tablet,exte tablet,ext dic nded nded ended Sports release release release Medici n e Suprep Suprep No Suprep Leslee Bowel Prep Bowel Prep Bowel Prep Orthope Kit 17.5 Kit 17.5 Kit 17.5 dic gram-3.13 gram-3.13 gram-3.13 Sports gram-1.6 gram-1.6 gram-1.6 Med icin gram oral gram oral gram oral e solution solution solution TAKE 1 UNIT TAKE 1 UNIT TAKE 1 BY MOUTH BY MOUTH UNIT BY DIRECTED DIRECTED MOUTH USED USED DIRECTED DIRECTED BY DIRECTED BY USED YOUR YOUR DIRECTED COLONOSCOPY COLONOSCOPY BY YOUR PACKET PACKET COLONOSCOP INSTRUCTION INSTRUCTION Y PACKET S S INSTRUCTIO NS tramadol 50 tramadol 50 No tramadol Leslee mg tablet mg tablet 50 mg Orth ope TAKE 1 TAKE 1 tablet dic TABLET BY TABLET BY TAKE 1 Spo rts MOUTH EVERY MOUTH EVERY TABLET BY Medicin DAY DAY MOUTH e NEEDED NEEDED EVERY DAY NEEDED trazodone trazodone No trazodone Leslee 50 mg 50 mg 50 mg Orthope tablet TAKE tablet TAKE tablet dic 1 TABLET BY 1 TABLET BY TAKE 1 Sports MOUTH EVERY MOUTH EVERY TABLET BY Medicin DAY AT DAY AT MOUTH e BEDTIME FOR BEDTIME FOR EVERY DAY INSOMNIA INSOMNIA AT BEDTIME FOR INSOMNIA Losartan Losartan Yes 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 a ns Tablet Tablet Immunizations Ordered Filled Immunization Date Status Comments [facility] e Immunization Name Name PRIYAA COVID-19 2021-09-02 Completed [facility] VACCINATION 00:00:00 Hospital PPD 2013-09-28 Completed [facility] 00:00:00 PPD 2012-10-14 Completed [facility] 00:00:00 Vital Signs Vital Name Observation Time Observation Value Comments Source Respiratory rate 2021-05-09 18 /min [facility] 22:30:00 [facility] Oxygen saturation 2021-05-09 95 /min [facility] Arterial blood 22:30:00 [facility] by Pulse oximetry Branch Systolic blood 2021-05-09 121 mm[Hg] [facility] pressure 22:30:00 [facility] Diastolic blood 2021-05-09 61 mm[Hg] [facility] o f pressure 22:30:00 [facility] Heart rate 2021-05-09 77 /min [facility] 22:30:00 [facility] Body temperature 2021-05-09 36.44 Nataly [facility] 22:30:00 [facility] Body height 2021-05-09 160 cm University 21:11:00 [facility] Body weight 2021-05-09 102.513 kg University 21:11:00 [facility] BMI 2021-05-09 40.03 kg/m2 University 21:11:00 [facility] Systolic blood 2022-04-03 117 mm[Hg] [facility] pressure 16:06:36 Hospital Diastolic blood 2022-04-03 65 mm[Hg] [facility] pressure 16:06:36 Hospital Heart rate 2022-04-03 84 /min [facility] 16:06:36 Hospital Body temperature 2022-04-03 37.33 Nataly [facility] 16:06:36 Hospital Respiratory rate 2022-04-03 18 /min [facility] 16:06:36 Hospital Oxygen saturation 2022-04-03 97 /min [facility] in Arterial blood 16:06:36 Hospital by Pulse oximetry Body height 2022-04-02 160 cm [facility] 11:02:00 Hospital Body weight 2022-04-02 101.152 kg [facility] 11:02:00 Hospital BMI 2022-04-02 39.50 kg/m2 [facility] 11:02:00 Hospital Weight 2020-12-19 239.5 [lb_av] [facility] 15:52:00 Body mass index 2020-12-19 42.43 kg/m2 [facility] (BMI) [Ratio] 15:52:00 Body temperature 2020-12-19 97.7 [degF] [facility] 15:52:00 Heart Rate 2020-12-19 121 /min [facility] 15:52:00 Systolic blood 2020-12-19 152 mm[Hg] Location: RUE; [facility] pressure 15:52:00 Position: Sitting Diastolic blood 2020-12-19 81 mm[Hg] Location: [facility] pressure 15:52:00 Position: Sitting Systolic blood 2020-09-21 128 mm[Hg] Location: R[facility]; [facility] pressure 13:39:00 Position: Sitting Diastolic blood 2020-09-21 80 mm[Hg] Location: RUE; [facility] pressure 13:39:00 Position: Sitting Weight 2020-09-21 234.2 [lb_av] [facility] 13:39:00 Body mass index 2020-09-21 41.49 kg/m2 [facility] (BMI) [Ratio] 13:39:00 Heart Rate 2020-09-21 103 /min Location: R [facility] 13:39:00 Carotid; Body temperature 2020-09-21 96.6 [degF] [facility] 13:39:00 BP Systolic 2019-03-30 120 mm[Hg] Location: RUE; [facility] 13:25:00 Position: Sitting BP Diastolic 2019-03-30 78 mm[Hg] Location: RUE; [facility] 13:25:00 Position: Sitting Height 2019-03-30 63 [in_us] [facility] 13:25:00 Weight 2019-03-30 219.25 [lb_av] [facility] 13:25:00 Body Mass Index 2019-03-30 38.84 kg/m2 [facility] Calculated 13:25:00 Heart Rate 2019-03-30 88 /min Location: R [facility] 13:25:00 Radial; BP Systolic 2018-11-23 125 mm[Hg] Location: RUE; [facility] 11:18:00 Position: Sitting BP Diastolic 2018-11-23 83 mm[Hg] Location: RUE; [facility] 11:18:00 Position: Sitting Height 2018-11-23 63 [in_us] [facility] 11:18:00 Weight 2018-11-23 228.125 [lb_av] [facility] 11:18:00 Body Mass Index 2018-11-23 40.41 kg/m2 [facility] Calculated 11:18:00 Heart Rate 2018-11-23 112 /min Location: R [facility] 11:18:00 Radial; BP Systolic 2018-03-03 133 mm[Hg] Location: RUE; [facility] 15:41:00 Position: Sitting BP Diastolic 2018-03-03 87 mm[Hg] Location: RUE; [facility] 15:41:00 Position: Sitting Height 2018-03-03 63 [in_us] [facility] 15:41:00 Weight 2018-03-03 224.4375 [lb_av] [facility] 15:41:00 Body Mass Index 2018-03-03 39.76 kg/m2 [facility] Calculated 15:41:00 Heart Rate 2018-03-03 101 /min Location: R [facility] 15:41:00 Radial; Procedures Procedure Date / Time Performing Clinician Source Performed XR LUMBAR SPINE 2 OR 3 VW 2022-08-29 18:28:01 [facility] XR LUMBAR SPINE 2 OR 3 VW 2022-04-22 19:20:00 [facility] HEMOGLOBIN 2022-04-03 09:43:[address] [facility] spital SURGICAL PATHOLOGY 2022-04-02 18:08:00 [facility] REQUEST OR FL > 1 HOUR 2022-04-02 17:10:00 [facility] HC NERVE BLOCK ERECTOR 2022-04-02 16:49:02 David Nation [facility] SPINAE INTRAOPERATIVE MONITORING 2022-04-02 16:03:41 [facility] OR FL > 1 HOUR 2022-04-02 15:10:00 [facility] ARTERIAL LINE 2022-04-02 14:40:43 Tiarra Amos [facility] Ana ANESTHESIA INTUBATION 2022-04-02 13:17:00 [facility] Ana FUSION, SPINE, LUMBAR, 2022-04-02 13:07:00 [facility] XLIF ABO AND RH CONFIRMATION 2022-04-02 11:09:00 [facility] URINE CULTURE 2022-03-21 15:58:00 Catherine Escobar [facility] URINALYSIS SCREEN AND 2022-03-21 15:58:00 Catherine Escobar [facility] MICROSCOPY, WITH REFLEX TO CULTURE CBC WITH PLATELET AND 2022-03-21 15:44:00 [facility] [place] [facility] DIFFERENTIAL BASIC METABOLIC PANEL 2022-03-21 15:44:00 Moe [facility] PROTHROMBIN TIME WITH INR 2022-03-21 15:44:00 Moe [facility] PARTIAL THROMBOPLASTIN 2022-03-21 15:44:00 Moe, [facility] TIME (PTT) ESTIMATED GFR 2022-03-21 15:44:00 [facility] TYPE AND SCREEN 2022-03-21 15:44:00 [facility] HEPATIC FUNCTION PANEL 2022-03-21 15:44:00 [facility] HEMOGLOBIN A1C 2022-03-21 15:44:00 [facility] XR CERVICAL SPINE 2 OR 3 2022-02-25 18:29:00 Moe [facility] SURGICAL PATHOLOGY 2022-02-03 16:40:00 Moe, [facility] REQUEST XR CERVICAL SPINE 1 2022-02-03 15:33:00 Moe [facility] XR CERVICAL SPINE 1 2022-02-03 15:20:00 Moe [facility] XR CERVICAL SPINE 1 2022-02-03 13:35:00 Moe [facility] [place] AN ELECTIVE 2022-02-03 12:39:00 Tiarra Amos ospital ENDOTRACHEAL AIRWAY Ana DISCECTOMY, CERVICAL, 2022-02-03 12:27:00 [facility] WITH FUSION, ANTERIOR APPROACH CBC WITH PLATELET AND 2022-01-20 19:32:00 [facility] DIFFERENTIAL BASIC METABOLIC PANEL 2022-01-20 19:32:00 Moe [facility] PROTHROMBIN TIME WITH INR 2022-01-20 19:32:00 Moe [facility] PARTIAL THROMBOPLASTIN 2022-01-20 19:32:00 Moe, [facility] TIME (PTT) HEMOGLOBIN A1C 2022-01-20 19:32:00 [facility] 2022-01-20 19:32:00 Moe [facility] ECG PRE/POST OP 2022-01-20 19:24:46 Moe [facility] CT CERVICAL SPINE WO 2022-01-02 19:49:00 Moe, [facility] CONTRAST CT LUMBAR SPINE WO 2022-01-02 19:48:00 Murphy [facility] CONTRAST XR CERVICAL SPINE 2022-01-02 18:24:00 Murphy [facility] COMPLETE W FLEX EXT XR LUMBAR SPINE AP 2022-01-02 18:24:00 Moe [facility] LATERAL FLEXION AND EXTENSION XR SPINE SCOLIOSIS 2-3 2022-01-02 18:24:00 Murphy [facility] VIEWS MRI SPINE EXTERNAL STUDY 2021-11-05 22:46:00 [facility] EXTERNAL STUDY 2021-11-03 22:14:00 [facility] CONSENT/REFUSAL FOR 2021-05-09 05:01:00 [facility] DIAGNOSIS AND TREATMENT [facility] [QL] CBC (INCLUDES 2020-12-19 00:00:00 [facility] DIFF/PLT) [QL] CMP W/EGFR 2020-12-19 00:00:00 [facility] [QL] C-REACTIVE PROTEIN 2020-12-19 00:00:00 [facility] [QL] SED RATE BY MODIFIED 2020-12-19 00:00:00 [facility] JOSE [QL] QUANTIFERON(R)-TB 2019-12-07 00:00:00 [facility] GOLD [QLH] CBC (INCLUDES 2019-12-07 00:00:00 [facility] DIFF/PLT) [QLH] CMP W/EGFR 2019-12-07 00:00:00 [facility] [QLH] C-REACTIVE PROTEIN 2019-12-07 00:00:00 [facility] [QLH] SED RATE BY 2019-12-07 00:00:00 [facility] MODIFIED WESTERGREN [QL] CBC (INCLUDES 2019-12-07 00:00:00 [facility] DIFF/PLT) [QL] CMP W/EGFR 2019-12-07 00:00:00 [facility] [QL] C-REACTIVE PROTEIN 2019-12-07 00:00:00 [facility] [QL] SED RATE BY MODIFIED 2019-12-07 00:00:00 [facility] WESTERGREN [QL] QUANTIFERON(R)-TB 2018-11-23 00:00:00 [facility] GOLD [QLH] CBC (INCLUDES 2018-11-23 00:00:00 [facility] DIFF/PLT) [QLH] CMP W/EGFR 2018-11-23 00:00:00 [facility] [QLH] C-REACTIVE PROTEIN 2018-11-23 00:00:00 [facility] [QLH] SED RATE BY 2018-11-23 00:00:00 [facility] MODIFIED JOSE Plan of Care Planned Activity Planned Date Details Comments Source Future Scheduled 2022-09-01 Hepatitis C screening [facility] Test 13:29:43 (procedure) [code = 933035899] Future Scheduled 2022-09-01 Screening for [facility] Test 13:29:43 malignant neoplasm of cervix (procedure) [code = 548831495] Future Scheduled 2022-09-01 BREAST CANCER [facility] Test 13:29:43 SCREENING [code = BREAST CANCER SCREENING] Future Scheduled 2022-09-01 COLONOSCOPY SCREENING [facility] Test 13:29:43 [code = COLONOSCOPY SCREENING] Future Scheduled 2022-09-01 SHINGLES VACCINES (1 [facility] Test 13:29:43 of 2) [code = SHINGLES VACCINES (1 of 2)] Future Scheduled 2022-09-01 INFLUENZA VACCINE [facility] Test 13:29:43 [code = INFLUENZA VACCINE] Encounters Start End Encounter Admission Attending Care Care Encounter Source Date/Time Date/Time Type Type Clinicians Facility Department ID 2022-08-29 2022-08-29 [facility] 1.2.840.1 [id number] Methodi 12:19:42 23:59:00 Encounter [place] 21581.1.[address] 3.430.2.7 Hospit a .3.046731 l .8 2022-08-29 2022-08-29 Office [facility] 1.2.840.1 [id number] 21 [id number] Methodi 13:45:00 13:45:00 Visit Fox [address]1445.1.[address] 3.430.2.7 Hospit a .3.082545 l .8 2022-08-29 2022-08-29 Outpatient [facility] 166 [id number] Bailey 00:00:00 00:00:[address] 2022-08-29 2022-08-29 Outpatient [facility] 424 [id number] Bailey 00:00:00 00:00:[address] 2022-08-29 2022-08-29 Travel 1.2.840.1 1.2.818.045 [id number] Methodi 00:00:00 00:00:[address] 3.430.2.7 0.2.7.3.698 Ho spita .3.784285 084.8 l .8 2022-08-26 2022-08-26 [facility] MoeMurphy becker 1.2.840.1 [id number] 21 [id number] Methodi 00:00:00 00:00:00 Only Fox 34172.1.[address] 3.430.2.7 Hospit a .3.048978 l .8 2022-07-22 2022-07-22 Outpatient FOG_Dieter_ [facility] AOSM 630 [id number] Leslee 00:00:00 00:00:00 Oscar [id number] Ortho pe dic Sports Medicin e 2022-07-16 2022-07-16 Travel 1.2.840.1 1.2.615.857 [id number] Methodi 00:00:00 00:00:[address] 3.430.2.7 0.2.7.3.698 Ho spita .3.277001 084.8 l .8 2022-05-30 2022-05-30 Outpatient FOG_Dieter_ AOSM AOSM 630 [id number] Leslee 00:00:00 00:00:00 Oscar [id number] Ortho pe dic Sports Medicin e 2022-04-22 2022-04-22 [facility] 1.2.840.1 [id number] Methodi 14:00:00 23:59:00 Encounter Fox [address]374.1.[address] 3.430.2.7 Hospit a .3.692940 l .8 2022-04-22 2022-04-22 Office Moe, Murphy 1.2.840.1 [id number] 21 [id number] Methodi 14:45:00 15:15:20 Visit Fox [address]251.1.[address] 3.430.2.7 Hospit a .3.294297 l .8 2022-04-22 2022-04-22 Outpatient MOE, [facility] 987 [id number] Bailey 00:00:00 00:00:[address] 2022-04-22 2022-04-22 Outpatient MOE, [facility] 853 [id number] Bailey 00:00:00 00:00:[address] 2022-04-22 2022-04-22 Orders Moe, Murphy 1.2.840.1 [id number] 21 [id number] Methodi 00:00:00 00:00:00 Only Fox 90235.1.[address] 3.430.2.7 Hospit a .3.896684 l .8 2022-04-22 2022-04-22 Travel 1.2.840.1 1.2.967.183 8782 [id number] Methodi 00:00:00 00:00:[address] 3.430.2.7 0.2.7.3.698 Ho spita .3.984220 084.8 l .8 2022-04-14 2022-04-14 Outpatient FOG_Dieter_ AOSM AOSM 630 [id number] Leslee 00:00:00 00:00:00 Chris_LO [id number] Ortho pe dic Sports Medicin e 2022-04-04 2022-04-04 Orders Nura, 1.2.840.1 [id number] Methodi 00:00:00 00:00:00 Only Dee Dee Lau 31122.1.[address] 3.430.2.7 Hospit a .3.073252 l .8 2022-04-02 2022-04-03 Hospital Moe Murphy 1.2.840.1 [id number] 2 [id number] Methodi 05:07:00 15:26:00 Encounter Fox [address]30.1.[address] 3.430.2.7 Hospit a .3.718022 l .8 2022-04-03 2022-04-03 Orders [facility] 1.2.840.1 [id number] 21 [id number] Methodi 00:00:00 00:00:00 Only Fox 92775.1.[address] 3.430.2.7 Hospit a .3.336269 l .8 2022-04-03 2022-04-03 Outpatient STEPHANE Encinas [facility] [id number] 00:00:00 00:00:00 Drake [id number] 2022-04-03 2022-04-03 Drake [facility] [place] - Ortho [id number] Leslee 00:00:00 00:00:00 Kirsten Encinas - Or thope CO: 6565 FOG_Bracing dic [place] _[facility] Medici [facility] [place] [address] 2022-04-02 2022-04-03 Inpatient [facility] 021 [id number] Bailey 00:00:00 00:00:[address] 2022-04-02 2022-04-02 Anesthesia David Nation 1.2.840.1 1 [id number] Methodi 08:07:00 13:28:00 Event Catherine Escboar 47423.1.[address] 3.430.2.7 Hospit a .3.865606 l .8 2022-04-02 2022-04-02 Surgery [facility] 1.2.840.1 [id number] 21 [id number] Methodi 08:00:00 13:15:[address] 3.430.2.7 Hospit a .3.102137 l .8 2022-04-02 2022-04-02 Orders [facility] 1.2.840.1 [id number] 21 [id number] Methodi 00:00:00 00:00:00 Only Fox 07551.1.[address] 3.430.2.7 Hospit a .3.623041 l .8 2022-04-02 2022-04-02 Travel 1.2.840.1 1.2.076.475 5232 [id number] Methodi 00:00:00 00:00:[address] 3.430.2.7 0.2.7.3.698 Ho spita .3.898005 084.8 l .8 2022-03-31 2022-03-31 Outpatient FOG_Dieter_ AOSM AOSM 630 [id number] Leslee 05:46:00 05:46:00 Chris_LO [id number] Ortho pe dic Sports Medicin e 2022-03-21 2022-03-21 Pre-Admiss Moe, Murphy 1.2.840.1 [id number] Methodi 09:30:00 10:30:00 ion Fox 79465.1.[address] Testing 3.430.2.7 Hospit a .3.941233 l .8 2022-03-21 2022-03-21 Outpatient [facility] 630 [id number] Bailey 00:00:00 00:00:[address] 2022-03-21 2022-03-21 Travel 1.2.840.1 1.2.597.338 [id number] Methodi 00:00:00 00:00:[address] 3.430.2.7 0.2.7.3.698 Ho spita .3.042391 084.8 l .8 2022-03-07 2022-03-07 Documentat Provider, 1.2.840.1 [id number] 2 [id number] Methodi 00:00:00 00:00:00 ion Unknown 08194.1.[address] 3.430.2.7 Hospit a .3.169979 l .8 2022-02-25 2022-02-25 Hospital [facility] 1.2.840.1 [id number] 2 [id number] Methodi 13:04:36 23:59:00 Encounter Fox [address]334.1.[address] 3.430.2.7 Hospit a .3.097303 l .8 2022-02-25 2022-02-25 Office [facility] 1.2.840.1 [id number] 21 [id number] Methodi 14:30:00 15:02:07 Visit Fox 31973.1.[address] 3.430.2.7 Hospit a .3.600324 l .8 2022-02-25 2022-02-25 Outpatient [facility] [id number] Bailey 00:00:00 00:00:[address] 2022-02-25 2022-02-25 Outpatient [facility] 370 [id number] Bailey 00:00:00 00:00:[address] 2022-02-25 2022-02-25 Travel 1.2.840.1 1.2.975.991 4044 [id number] Methodi 00:00:00 00:00:[address] 3.430.2.7 0.2.7.3.698 Ho spita .3.108308 084.8 l .8 2022-02-25 2022-02-25 Orders [facility] 1.2.840.1 [id number] 21 [id number] Methodi 00:00:00 00:00:00 Only Fox [address]127.1.[address] 3.430.2.7 Hospit a .3.863143 l .8 2022-02-18 2022-02-18 Travel 1.2.840.1 1.2.932.846 4988 [id number] Methodi 00:00:00 00:00:[address] 3.430.2.7 0.2.7.3.698 Ho spita .3.832007 084.8 l .8 2022-02-11 2022-02-11 Outpatient FOG_Dieter_ AOSM AOSM 630 [id number] Leslee 04:01:00 04:01:00 Chris_MOI [id number] Ortho pe dic Sports Medicin e 2022-02-05 2022-02-05 Travel 1.2.840.1 1.2.671.823 2578 [id number] Methodi 00:00:00 00:00:[address] 3.430.2.7 0.2.7.3.698 Ho spita .3.184969 084.8 l .8 2022-02-03 2022-02-04 Hospital [facility] 1.2.840.1 [id number] 2 [id number] Methodi 05:12:00 16:10:00 Encounter Fox 71337.1.[address] 3.430.2.7 Hospit a .3.591814 l .8 2022-02-04 2022-02-04 Drake [facility] [place] - Ortho [id number] Leslee 00:00:00 00:00:00 Kirsten Encinas - Or thope CO: 6565 FOG_Bracing dic Mariel _[facility] Medic[facility] [place] [address] , Ph. 2022-02-04 2022-02-04 Outpatient STEPHANE Encinas [facility] [id number] a-e 00:00:00 00:00:00 Drake [id number] 2022-02-03 2022-02-04 Inpatient [facility] 021 [id number] Bailey 00:00:00 00:00:[address] 2022-02-03 2022-02-03 Surgery [facility] 1.2.840.1 [id number] 21 [id number] Methodi 07:30:00 12:05:[address] 3.430.2.7 Hospit a .3.674538 l .8 2022-02-03 2022-02-03 Anesthesia Donald Bell 1.2.840 .1 [id number] Methodi 07:27:00 11:17:00 Event Bernice Young 47442.1.[address] 3.430.2.7 Hospit a .3.566108 l .8 2022-02-03 2022-02-03 Travel 1.2.840.1 1.2.267.324 2724 [id number] Methodi 00:00:00 00:00:[address] 3.430.2.7 0.2.7.3.698 Ho spita .3.140584 084.8 l .8 2022-01-20 2022-01-20 Pre-Admiss [facility] 1.2.840.1 [id number] Methodi 13:10:00 14:10:00 ion Fox 44476.1.[address] Testing 3.430.2.7 Hospit a .3.485495 l .8 2022-01-20 2022-01-20 Outpatient [facility] 554 [id number] Bailey 00:00:00 00:00:[address] 2022-01-20 2022-01-20 Travel 1.2.840.1 1.2.613.576 8622 [id number] Methodi 00:00:00 00:00:[address] 3.430.2.7 0.2.7.3.698 Ho spita .3.566336 084.8 l .8 2022-01-02 2022-01-02 [facility] 1.2.840.1 [id number] 2 [id number] Methodi 13:30:16 23:59:00 Encounter Fox [address]5360.1.[address] 3.430.2.7 Hospit a .3.205625 l .8 2022-01-02 2022-01-02 [facility] 1.2.840.1 [id number] 2 [id number] Methodi 13:30:00 13:30:00 Encounter Fox [address]690.1.[address] 3.430.2.7 Hospit a .3.588585 l .8 2022-01-02 2022-01-02 [facility] 1.2.840.1 [id number] 2 [id number] Methodi 12:30:00 13:29:00 Encounter Fox 78833.1.[address] 3.430.2.7 Hospit a .3.329398 l .8 2022-01-02 2022-01-02 [facility] 1.2.840.1 [id number] 2 [id number] Methodi 12:15:00 12:29:00 Encounter Fox [address]1056.1.[address] 3.430.2.7 Hospit a .3.211057 l .8 2022-01-02 [facility]22[facility] [id number] 2 [id number] Methodi 12:00:00 12:14:00 Encounter Fox 07288.1.[address] 3.430.2.7 Hospit a .3.093103 l .8 2022-01-02 2022-01-02 Outpatient MOE, [facility] [id number] [place] 00:00:00 00:00:[address] 2022-01-02 2022-01-02 Outpatient MOE, [facility] 060 [id number] [place] 00:00:00 00:00:[address] 2022-01-02 2022-01-02 Outpatient MOE, [facility] [id number] [place] 00:00:00 00:00:[address] 2022-01-02 2022-01-02 Outpatient MOE, [facility] [id number] [place] 00:00:00 00:00:[address] 2022-01-02 2022-01-02 Outpatient MOE, [facility] [id number] [place] 00:00:00 00:00:[address] 2022-01-02 2022-01-02 Travel 1.2.840.1 1.2.918.832 [id number] Methodi 00:00:00 00:00:[address] 3.430.2.7 0.2.7.3.698 Ho spita .3.348324 084.8 l .8 2021-12-23 2021-12-23 Travel 1.2.840.1 1.2.131.005 6859 [id number] Methodi 00:00:00 00:00:[address] 3.430.2.7 0.2.7.3.698 Ho spita .3.813639 084.8 l .8 2021-12-20 2021-12-20 [facility] 1.2.840.1 [id number] 2 [id number] Methodi 09:56:52 23:59:00 Encounter Fox [address]503.1.[address] 3.430.2.7 Hospit a .3.935057 l .8 2021-12-20 2021-12-20 [facility] 1.2.840.1 [id number] 21 [id number] Methodi 10:00:00 11:00:44 Visit Fox 55047.1.[address] 3.430.2.7 Hospit a .3.579152 l .8 2021-12-20 2021-12-20 [facility] 1.2.840.1 [id number] 2 [id number] Methodi 09:54:24 09:55:00 Encounter Fox [address]09.1.[address] 3.430.2.7 Hospit a .3.802048 l .8 2021-12-20 2021-12-20 Outpatient MOE, [facility] [id number] [place] 00:00:00 00:00:[address] 2021-12-20 2021-12-20 [facility]patient [facility] [id number] [place] 00:00:00 00:00:[address] 2021-12-20 2021-12-20 Outpatient [facility] [id number] [place] 00:00:00 00:00:[address] 2021-12-20 2021-12-20 Travel 1.2.840.1 1.2.394.366 1295 [id number] Methodi 00:00:00 00:00:[address] 3.430.2.7 0.2.7.3.698 Ho spita .3.555927 084.8 l .8 2021-12-04 2021-12-04 Travel 1.2.840.1 1.2.033.698 [id number] Methodi 00:00:00 00:00:[address] 3.430.2.7 0.2.7.3.698 Ho spita .3.411384 084.8 l .8 2021-05-09 2021-05-09 Outpatient R [facility] [id number] Univers 15:30:00 15:30:00 ELVIA italley of [facility] 2021-05-09 2021-05-09 Nurse Therapy, Adc Covid Infusion [facility] 1.2.840.114 [id number] Univers 14:24:43 15:24:43 Visit Elvia Weinberg 350.1.13.10 ity [facility] 4.2.[place] [id number] [facility] 053 Branch 2021-05-09 2021-05-09 Orders Doctor MOISÉS 1.2.840.114 [id number] Univers 00:00:00 00:00:00 Only Unassigned, JUVENCIO 350.1.13.10 ity of [facility] 4.2.7.2.686 Erik as [id number] [place] [address] Branch 2020-12-19 2020-12-19 Appointmen TOSHA COREA Rheumatolog [id number] [place] 15:30:00 15:30:00 t; MARIBELL COREA y Phy sici JAMMIE, M.D. ans M.D. 2020-09-21 2020-09-21 AppointTOSHA Caballero Rheumatolog [id number] [place] 13:30:00 13:30:00 t; MARIBELL COREA y Phy sici JAMMIE, M.D. ans M.D. 2020-06-27 2020-06-27 AppointTOSHA Caballero Rheumatolog [id number] [place] 15:00:00 15:00:00 t; MARIBELL COREA y Phy sici JAMMIE, M.D. ans M.D. 2019-12-07 2019-12-07 AppointTOSHA Caballero Rheumatolog [id number] [place] 15:00:00 15:00:00 t; MARIBELL COREA y Phy sici JAMMIE, M.D. ans M.D. 2019-08-08 2019-08-08 AppointTOSHA Caballero Rheumatolog [id number] [place] 13:30:00 13:30:00 t; MARIBELL COREA y Phy sici JAMMIE, M.D. ans M.D. 2019 2019-05-27 Outside nullFlavo MNA [id number] Memoria 19:28:42 04:59:59 Medical r Neurology 01 l Records [place] 2019 2019-05-27 Outside nullFlavo MNA [id number] Memoria 19:28:42 04:59:59 Medical r Neurology 01 l Records [place] 2019 2019-05-26 Outpatient MHMISCHER MHMISCHER [id number] 14:28:42 23:59:59 2019-05-20 2019-05-21 Outpatient nullFlavo MNA [id number] Memoria 20:45:00 04:59:59 r Neurology 01 l [place] 2019-05-20 2019-05-21 Outpatient nullFlavo MNA [id number] Memoria 20:45:00 04:59:59 r Neurology 01 l [place] 2019-05-20 2019-05-20 Outpatient Alyssa MHMISCHER MHMISCHER [id number] 15:45:00 23:59:59 Ashish Alan 2019-05-20 2019-05-20 Outpatient MHIE MHIE [id number] Memoria 15:45:00 15:45:[address] [facility] 2019-03-30 2019-03-30 AppointTOSHA Caballero Rheumatolog [id number] [place] 13:30:00 13:30:00 t; MARIBELL COREA y Phy sici JAMMIE, M.D. ans M.D. 2018-11-23 2018-11-23 AppointTOSHA Caballero Rheumatolog [id number] [place] 10:30:00 10:30:00 t; COREA, MARIBELL, Tobi Ramirez M.D. 2018-09-02 2018-09-04 Outside nullFlavo MNA [id number] Memoria 22:39:00 05:59:59 Medical r Neurology 00 l Records Yung Navarro 2018-09-02 2018-09-04 Outside nullFlavo MNA [id number] Memoria 22:39:00 05:59:59 Medical r Neurology 00 l Records Yung Navarro 2018-09-02 2018-09-03 Outpatient MHMISCHER MHMISCHER [id number] [id number] 16:39:00 23:59:59 00 2018-07-07 2018-07-07 Day [facility]Flavo [facility] [id number] Memoria 13:00:00 13:00:00 Surgery r Ramon 00 l [facility] 2018-07-07 2018-07-07 Day nullFlavo [facility] [id number] Memoria 13:00:00 13:00:00 Surgery r Ramon 00 l [facility] 2018-07-07 2018-07-07 Outpatient MARCELINA Decker SE [id number] 08:00:00 08:00:00 Lamberto Heide Gutierrez 2018-06-25 2018-06-26 Outpatient nullFlavo MNA [id number] Memoria 20:45:00 04:59:59 r Neurology 00 l Yung Navarro 2018-06-25 2018-06-26 Outpatient nullFlavo MNA [id number] Memoria 20:45:00 04:59:59 r Neurology 00 l Yung Menonann 2018-06-25 2018-06-25 Outpatient LG ShahSCHER MHMISCHER 591 [id number] 15:45:00 23:59:59 Ashish Heide Phillips 2018-06-25 2018-06-25 Outpatient MHIE MHIE [id number] Memoria 15:45:00 15:45:00 00 l Ramon 2018-03-03 2018-03-03 TOSHA Davis Rheumatolog [id number] [place] 15:30:00 15:30:00 t; MARIBELL COREA y Phy sici JAMMIE, M.D. ans M.D. 2017-10-14 2017-10-14 TOSHA Davis UTP [id number] [place] 14:30:00 14:30:00 t; MARIBELL COREA Phy sici JAMMIE, M.D. ans M.D. 2017-06-24 [facility] UTP [id number] [place] 14:00:00 14:00:00 t; MARIBELL COREA Phy sici JAMMIE, M.D. ans Tobi 2016-12-23 2016[facility]HA HOGAN UTP [id number] [place] 10:00:00 10:00:00 t; NIKITA HOGAN M.D. P william SHELTON M.D. ans 2016-12-03 2016-12-03 TOSHA Davis UTP [id number] [place] 15:30:00 15:30:00 t; MARIBELL COREA Phy sici JAMMIE, M.D. ans M.D. 2016-11-28 2016-11-29 Outpt Diag nullFlavo [facility] [id number] Memoria 20:55:00 04:59:00 Services r Outpatient 01 l Imaging - Elder garvey [facility] Nabeel 2016-11-28 2016-11-29 [place] [id number] Memoria 20:55:00 04:59:00 Services r Outpatient 01 l [facility] 2016-11-28 2016-11-28 Outpatient Nikita Hogan MH35 MH35 [id number] 15:55:00 23:59:00 Dnuia 01 2016-11-24 2016-11-24 [facility] TOSHA HOGAN UTP [id number] [place] 11:00:00 11:00:00 t; NIKITA HOGAN M.D. P hysisisi SHELTON M.D. ans 2016-08-05 2016-08-05 TOSHA Davis UTP [id number] [place] 10:00:00 10:00:00 t; MARIBELL COREA Phy sici JAMMIE, M.D. ans M.D. 2016-03-18 2016-03-18 TOSHA Davis UTP [id number] [place] 10:00:00 10:00:00 t; COREA, MARIBELLLoretta Hernandez M.D. ans M.D. 2014-09-25 2014-09-26 Outpt Diag nullFlavo [facility] [id number] Memoria 18:54:00 05:59:00 Services r Outpatient 00 l Imaging [place] 2014-09-25 2014-09-26 Outpt Diag nullFlavo [facility] [id number] Memoria 18:54:00 05:59:00 Services r Outpatient 00 l Imaging [facility] 2014-09-25 2014-09-25 Outpatient Hogan, Thy 2.16.840. 2.16.840. 1. [id number] 12:54:00 23:59:00 Dunia [id number]. 141306.3.61 00 3.615.0.1 5.0.101 01 Results Test Description Test Time Test Comments Results Result Comments Source Surgical pathology request 2022-04-04 15:29:31 Test Item Value Reference Range Interpretation Comme nts Case number (test code = 8170796) [id number] Surgical pathology report (test code = See link below for PDF Lab R eport 225) Result status (test code = 0083901) This is Final Report for [id number] [facility] [id number] 17:57:00 Test Item Value Reference Range Interpretation Comments Urine culture (test SEE COMMENT Bacteriu magali screen code = 7904962) negative. [id number] 20:29:06 Test Item Value Reference Range Interpretation Comments Ventricular rate (test 64 code = 253) Atrial rate (test code = 64 255) [place] interval (test code = 174 266) QRSD interval (test code 102 = 260) QT interval (test code = 432 264) QTC interval (test code 445 = 265) P axis 1 (test code = 48 267) QRS axis 1 (test code = 55 268) T wave axis (test code = 44 270) EKG impression (test Normal sinus code = 273) rhythm-Possible Left atrial enlargement-Low voltage QRS-Incomplete right bundle branch block-Borderline ECG-No previous ECGs available-Electronica lly Signed By Sidney Lopes MD ([id number]) on 01/21/2022 3:29:03 PM [facility][QL] CMP [id number] 16:46:00 Test Item Value Reference Range Interpretation Comments GLUCOSE; Above 128 mg/dl 65-99 Fasting refer ence High Threshold interval For someone (test code = without known 1547-9) diabetes, a glucosevalue >1 25 mg/dL indicates that they may havedi abetes and this should be confirmed with afollow-up test . UREA NITROGEN 10 mg/dl 7-25 N (BUN) (test code = UREA NITROGEN (BUN)) CREATININE (test 0.75 mg/dl 0.50-1.05 N For patient s >49 years code = of age, the ref erence CREATININE) limitfor Creati nine is approximately 1 3% higher for peopleidentifie d as -Arlet n. eGFR NON-AFR. 92 {ML/MIN/1.7} See_Comment N [Automated message] MALAYSIAN (test The system ich code = eGFR generated this result NON-AFR. transmitted ref erence MALAYSIAN) range: > OR = 6 0. The reference range was not used to int erpret this result as normal/abnormal . eGFR 107 {ML/MIN/1.7} See_Comment N [Automated message] MALAYSIAN (test The system ich code = eGFR generated this result ) transmitte d reference range: > OR = 6 0. The reference range was not used to int erpret this result as normal/abnormal . BUN/CREATININE NOT APPLICABLE 6-22 RATIO (test code = BUN/CREATININE RATIO) SODIUM (test code 145 mmol/L 135-146 N = SODIUM) POTASSIUM (test 4.2 mmol/L 3.5-5.3 N code = POTASSIUM) CHLORIDE (test 109 mmol/L 98-110 N code = CHLORIDE) CARBON DIOXIDE 30 mmol/L 20-32 N (test code = CARBON DIOXIDE) CALCIUM (test 9.1 mg/dl 8.6-10.4 N code = CALCIUM) PROTEIN, TOTAL 6.4 g/dl 6.1-8.1 N (test code = PROTEIN, TOTAL) ALBUMIN (test 4.1 g/dl 3.6-5.1 N code = ALBUMIN) GLOBULIN (test 2.3 {G/DL CALC} 1.9-3.7 N code = GLOBULIN) ALBUMIN/GLOBULIN 1.8 {CALC} 1.0-2.5 N RATIO (test code = ALBUMIN/GLOBULIN RATIO) BILIRUBIN, TOTAL; 0.4 mg/dl 0.2-1.2 N Normal (test code = 51334-5) ALKALINE 58 u/l 37-153 N PHOSPHATASE (test code = ALKALINE PHOSPHATASE) AST; Normal (test 22 u/l 10-35 N code = 1916-6) ALT; Normal (test 22 u/l 6-29 N code = 1742-6) [facility][QL] SED RATE BY MODIFIED [id number] 16:46:00 Test Item Value Reference Range Interpretation Comments SED RATE BY MODIFIED 2 mm/h See_Comment N [Autom ated message] The WESTERGREN (test code = syst em which generated SED RATE BY MODIFIED this re sult transmitted WESTERGREN) reference range : < OR = 30. The referen ce range was not used to interpret this result as normal/abnormal . [facility][QL] CBC (INCLUDES DIFF/PLT)2020-12-19 16:46:00 Test Item Value Reference Range Interpretation Comments WHITE BLOOD CELL COUNT 5.6 {Thousand/u} 3.8-10.8 N (test code = WHITE BLOOD CELL COUNT) RED BLOOD CELL COUNT (test 4.18 {Million/uL} 3.80-5.10 N code = RED BLOOD CELL COUNT) HEMOGLOBIN; Normal (test 12.7 g/dl 11.7-15.5 N code = 12876-1) HEMATOCRIT; Normal (test 38.0 % 35.0-45.0 N code = 4544-3) MCV; Normal (test code = 90.9 fL 80.0-100.0 N 787-2) MCHC; Normal (test code = 33.4 g/dl 32.0-36.0 N 54137-7) RDW; Normal (test code = 13.4 % 11.0-15.0 N 788-0) PLATELET COUNT; Normal 302 {Thousand/u} 140-400 N (test code = 777-3) MPV; Normal (test code = 10.3 fL 7.5-12.5 N 39999-6) ABSOLUTE NEUTROPHILS (test 1411 {cells/uL} 4451-7789 code = ABSOLUTE NEUTROPHILS) ABSOLUTE LYMPHOCYTES (test [...] Normal (test 14.6 % N code = 12460-0) EOSINOPHILS; Normal (test 2.5 % N code = 32160-6) BASOPHILS; Normal (test 1.1 % N code = 53452-0) [facility][QL] C-REACTIVE [id number] 16:46:00 Test Item Value Reference Range Interpretation Comments C-REACTIVE PROTEIN (test code = 1.0 mg/L <8.0 N C-REACTIVE PROTEIN) [facility][QL] CMP [id number] 16:15:00 Test Item Value Reference Range Interpretation [...] 88 {ML/MIN/1.7} > OR = 60 N MALAYSIAN (test code = eGFR NON-AFR. MALAYSIAN) eGFR 102 {ML/MIN/1.7} > OR = 60 N MALAYSIAN (test code = eGFR ) BUN/CREATININE NOT [...] mg/dl 0.2-1.2 N Normal (test code = 38752-7) ALKALINE 71 u/l 37-153 N PHOSPHATASE (test code = ALKALINE PHOSPHATASE) AST; Normal (test 24 u/l 10-35 N code = 1916-6) ALT; Normal (test 22 u/l 6-29 N code = 1742-6) [facility][QL] SED RATE BY MODIFIED [id number] 16:15:00 Test Item Value Reference Range Interpretation Comments SED RATE BY MODIFIED WESTERGREN (test 2 mm/h < OR = 30 N code = SED RATE BY MODIFIED WESTERGREN) [facility][QL] CBC (INCLUDES DIFF/PLT)2020-07-31 16:15:00 Test Item Value Reference Range Interpretation Comments WHITE BLOOD CELL COUNT 7.0 {Thousand/u} 3.8-10.8 N (test code = WHITE BLOOD CELL COUNT) RED BLOOD CELL COUNT (test 4.26 {Million/uL} 3.80-5.10 N code = RED BLOOD CELL COUNT) HEMOGLOBIN; Normal (test 12.6 g/dl 11.7-15.5 N code = 02663-1) HEMATOCRIT; Normal (test 39.0 % 35.0-45.0 N code = 4544-3) MCV; Normal (test code = 91.5 fL 80.0-100.0 N 787-2) MCHC; Normal (test code = 32.3 g/dl 32.0-36.0 N 34391-2) RDW; Normal (test code = 12.8 % 11.0-15.0 N 788-0) PLATELET COUNT; Normal 287 {Thousand/u} 140-400 N (test code = 777-3) MPV; Normal (test code = 11.7 fL 7.5-12.5 N 29194-7) ABSOLUTE NEUTROPHILS (test 2142 {cells/uL} 0848-4610 N code = ABSOLUTE NEUTROPHILS) ABSOLUTE LYMPHOCYTES [...] Normal (test 14.4 % N code = 75354-3) EOSINOPHILS; Normal (test 8.6 % N code = 76458-1) BASOPHILS; Normal (test 1.6 % N code = 93926-3) [facility][QL] C-REACTIVE [id number] 16:15:00 Test Item Value Reference Range Interpretation Comments C-REACTIVE PROTEIN (test code = 1.5 mg/L <8.0 N C-REACTIVE PROTEIN) [facility][Q] QUANTIFERON( R)-TB GOLD PLUS, 1 [id number] 16:15:00 Test Item Value Reference Range Interpretation [...] For additional info rmation, please refer [email or web address] [email or web address](Th is link is laverne shearer provided for informational/e ducational purposes only.) [facility]] CMP [id number] 15:22:00 Test Item Value Reference Range Interpretation [...] 96 {ML/MIN/1.7} > OR = 60 N MALAYSIAN (test code = eGFR NON-) eGFR 111 {ML/MIN/1.7} > OR = 60 N MALAYSIAN (test code = eGFR ) BUN/CREATININE NOT [...] mg/dl 0.2-1.2 N Normal (test code = 02111-7) ALKALINE 72 u/l 33-130 N PHSPHATASE (test code = ALKALINE PHSPHATASE) AST; Normal (test 18 u/l 10-35 N code = 1916-6) ALT; Normal (test 25 u/l 6-29 N code = 1742-6) [facility]] SED RATE BY MODIFIED [id number] 15:22:00 Test Item Value Reference Range Interpretation Comments SED RATE BY MODIFIED WESTERGREN (test 2 mm/h < OR = 20 N code = SED RATE BY MODIFIED WESTERGREN) [facility]] CBC (INCLUDES DIFF/PLT)2019-08-08 15:22:00 Test Item Value Reference Range Interpretation Comments WHITE BLOOD CELL COUNT 6.3 {Thousand/u} 3.8-10.8 N (test code = WHITE BLOOD CELL COUNT) RED BLOOD CELL COUNT (test 4.37 {Million/uL} 3.80-5.10 N code = RED BLOOD CELL COUNT) HEMAGLOBIN; Normal (test 12.7 g/dl 11.7-15.5 N code = 80575-9) HEMATOCRIT; Normal (test 39.1 % 35.0-45.0 N code = 4544-3) MCV; Normal (test code = 89.5 fL 80.0-100.0 N 787-2) MCHC; Normal (test code = 32.5 g/dl 32.0-36.0 N 53314-8) RDW; Normal (test code = 12.6 % 11.0-15.0 N 788-0) PLATELET COUNT; Normal 318 {Thousand/u} 140-400 N (test code = 777-3) MPV; Normal (test code = 10.1 fL 7.5-12.5 N 69321-8) ABSOLUTE NEUTROPHILS (test 2652 {cells/uL} 5992-8367 N code = ABSOLUTE NEUTROPHILS) ABSOLUTE LYMPHOCYTES [...] Normal (test 12.3 % N code = 91012-2) EOSINOPHILS; Normal (test 1.9 % N code = 51426-2) BASOPHILS; Normal (test 1.3 % N code = 66271-9) [facility]] C-REACTIVE [id number] 15:22:00 Test Item Value Reference Range Interpretation Comments C-REACTIVE PROTEIN (test code = 1.5 mg/L <8.0 N C-REACTIVE PROTEIN) [facility]] CMP [id number] 13:58:00 Test Item Value Reference Range Interpretation Comments GLUCOSE; Normal 76 mg/dl 65-139 N Non-fasting (test code = reference inter ananya 1547-9) UREA NITROGEN (BUN) 13 mg/dl 7-25 N (test code = UREA NITROGEN (BUN)) CREATININE (test 0.70 mg/dl 0.50-1.10 N code = CREATININE) eGFR NON- 102 {ML/MIN/1.7} > OR = 60 N MALAYSIAN (test code = eGFR NON-) eGFR 118 {ML/MIN/1.7} > OR = 60 N MALAYSIAN (test code = eGFR ) BUN/CREATININE NOT [...] mg/dl 0.2-1.2 N Normal (test code = 27457-8) ALKALINE PHSPHATASE 83 u/l 33-115 N (test code = ALKALINE PHSPHATASE) AST; Normal (test 16 u/l 10-35 N code = 1916-6) ALT; Normal (test 15 u/l 6-29 N code = 1742-6) [facility]] SED RATE BY MODIFIED [id number] 13:58:00 Test Item Value Reference Range Interpretation Comments SED RATE BY MODIFIED WESTERGREN (test 2 mm/h < OR = 20 N code = SED RATE BY MODIFIED WESTERGREN) [facility]] CBC (INCLUDES DIFF/PLT)2019-03-30 13:58:00 Test Item Value Reference Range Interpretation Comments WHITE BLOOD CELL COUNT 7.5 {Thousand/u} 3.8-10.8 N (test code = WHITE BLOOD CELL COUNT) RED BLOOD CELL COUNT (test 4.59 {Million/uL} 3.80-5.10 N code = RED BLOOD CELL COUNT) HEMAGLOBIN; Normal (test 13.1 g/dl 11.7-15.5 N code = 33274-5) HEMATOCRIT; Normal (test 40.1 % 35.0-45.0 N code = 4544-3) MCV; Normal (test code = 87.4 fL 80.0-100.0 N 787-2) MCHC; Normal (test code = 32.7 g/dl 32.0-36.0 N 61255-5) RDW; Normal (test code = 12.6 % 11.0-15.0 N 788-0) PLATELET COUNT; Normal 281 {Thousand/u} 140-400 N (test code = 777-3) MPV; Normal (test code = 10.6 fL 7.5-12.5 N 75953-9) ABSOLUTE NEUTROPHILS (test 2888 {cells/uL} 6433-0781 N code = ABSOLUTE NEUTROPHILS) ABSOLUTE LYMPHOCYTES [...] Normal (test 11.7 % N code = 34363-9) EOSINOPHILS; Normal (test 1.5 % N code = 29930-6) BASOPHILS; Normal (test 0.9 % N code = 28658-9) [facility]] C-REACTIVE [id number] 13:58:00 Test Item Value Reference Range Interpretation Comments C-REACTIVE PROTEIN (test code = 2.1 mg/L <8.0 N C-REACTIVE PROTEIN) [facility]] CMP [id number] 11:40:00 Test Item Value Reference Range Interpretation Comments GLUCOSE; Normal 118 mg/dl 65-139 N Non-fasting (test code = reference inter ananya 1547-9) UREA NITROGEN (BUN) 16 mg/dl 7-25 N (test code = UREA NITROGEN (BUN)) CREATININE (test 0.72 mg/dl 0.50-1.10 N code = CREATININE) eGFR NON- 98 {ML/MIN/1.7} > OR = 60 N MALAYSIAN (test code = eGFR NON-) eGFR 114 {ML/MIN/1.7} > OR = 60 N MALAYSIAN (test code = eGFR ) BUN/CREATININE NOT [...] mg/dl 0.2-1.2 N Normal (test code = 37226-3) ALKALINE PHSPHATASE 75 u/l 33-115 N (test code = ALKALINE PHSPHATASE) AST; Normal (test 14 u/l 10-35 N code = 1916-6) ALT; Normal (test 20 u/l 6-29 N code = 1742-6) [facility]] SED RATE BY MODIFIED [id number] 11:40:00 Test Item Value Reference Range Interpretation Comments SED RATE BY MODIFIED WESTERGREN (test 2 mm/h < OR = 20 N code = SED RATE BY MODIFIED WESTERGREN) [facility]] CBC (INCLUDES DIFF/PLT)2018-11-23 11:40:00 Test Item Value Reference Range Interpretation Comments WHITE BLOOD CELL COUNT 8.6 {Thousand/u} 3.8-10.8 N (test code = WHITE BLOOD CELL COUNT) RED BLOOD CELL COUNT (test 4.61 {Million/uL} 3.80-5.10 N code = RED BLOOD CELL COUNT) HEMAGLOBIN; Normal (test 13.4 g/dl 11.7-15.5 N code = 67194-2) HEMATOCRIT; Normal (test 41.4 % 35.0-45.0 N code = 4544-3) MCV; Normal (test code = 89.8 fL 80.0-100.0 N 787-2) MCHC; Normal (test code = 32.4 g/dl 32.0-36.0 N 21676-1) RDW; Normal (test code = 13.2 % 11.0-15.0 N 788-0) PLATELET COUNT; Normal 316 {Thousand/u} 140-400 N (test code = 777-3) MPV; Normal (test code = 10.0 fL 7.5-12.5 N 84047-4) ABSOLUTE NEUTROPHILS (test 5495 {cells/uL} 8597-3986 N code = ABSOLUTE NEUTROPHILS) ABSOLUTE LYMPHOCYTES [...] Normal (test 8.7 % N code = 56484-0) EOSINOPHILS; Normal (test 1.4 % N code = 19795-9) BASOPHILS; Normal (test 0.8 % N code = 99388-4) [facility]] C-REACTIVE [id number] 11:40:00 Test Item Value Reference Range Interpretation Comments C-REACTIVE PROTEIN (test code = 2.5 mg/L <8.0 N C-REACTIVE PROTEIN) [facility][Q] QUANTIFERON( R)-TB GOLD PLUS, 1 [id number] 11:40:00 Test Item Value Reference Range Interpretation [...] For additional info rmation, please refer [email or web address] [email or web address](This link is being p rovided for informational/e ducational purposes only.) [facility]] CMP [id number] 16:35:00 Test Item Value Reference Range Interpretation Comments GLUCOSE; Normal 105 mg/dl 65-139 N Non-fasting (test code = 1547-9) referen ce interval UREA NITROGEN (BUN) 12 mg/dl 7-25 N (test code = UREA NITROGEN (BUN)) CREATININE (test 0.82 mg/dl 0.50-1.10 N code = CREATININE) eGFR NON- 85 {ML/MIN/1.7} > OR = 60 N MALAYSIAN (test code = eGFR NON-) eGFR 98 {ML/MIN/1.7} > OR = 60 N MALAYSIAN (test code = eGFR ) BUN/CREATININE RATIO NOT APPLICABLE 03-05 (test code = BUN/CREATININE RATIO) SODIUM (test code = 141 mmol/L 135-146 N SODIUM) POTASSIUM (test code 4.0 mmol/L 3.5-5.3 N = POTASSIUM) CHLORIDE (test code 106 mmol/L 98-110 N = CHLORIDE) CARBON DIOXIDE (test 29 mmol/L 20-31 N code = CARBON DIOXIDE) CALCIUM (test code = 9.3 mg/dl 8.6-10.2 N CALCIUM) PROTEIN, TOTAL (test 7.1 g/dl 6.1-8.1 N code = PROTEIN, TOTAL) ALBUMIN (test code = 4.5 g/dl 3.6-5.1 N ALBUMIN) GLOBULIN (test code 2.6 {G/DL CALC} 1.9-3.7 N = GLOBULIN) ALBUMIN/GLOBULIN 1.7 {CALC} 1.0-2.5 N RATIO (test code = ALBUMIN/GLOBULIN RATIO) BILIRUBIN, TOTAL; 0.3 mg/dl 0.2-1.2 N Normal (test code = 96347-0) ALKALINE PHSPHATASE 61 u/l 33-115 N (test code = ALKALINE PHSPHATASE) AST; Normal (test 16 u/l 10-35 N code = 1916-6) ALT; Normal (test 21 u/l 6-29 N code = 1742-6) [facility]] SED RATE BY MODIFIED [id number] 16:35:00 Test Item Value Reference Range Interpretation Comments SED RATE BY MODIFIED WESTERGREN (test 3 mm/h < OR = 20 N code = SED RATE BY MODIFIED WESTERGREN) [facility][QL] CBC (INCLUDES DIFF/PLT)2018-03-03 16:35:00 Test Item Value Reference Range Interpretation Comments WHITE BLOOD CELL COUNT 7.3 {Thousand/u} 3.8-10.8 N (test code = WHITE BLOOD CELL COUNT) RED BLOOD CELL COUNT (test 4.55 {Million/uL} 3.80-5.10 N code = RED BLOOD CELL COUNT) HEMOGLOBIN; Normal (test 13.4 g/dl 11.7-15.5 N code = 35521-2) HEMATOCRIT; Normal (test 39.8 % 35.0-45.0 N code = 4544-3) MCV; Normal (test code = 87.5 fL 80.0-100.0 N 787-2) MCHC; Normal (test code = 33.7 g/dl 32.0-36.0 N 59015-1) RDW; Normal (test code = 12.8 % 11.0-15.0 N 788-0) PLATELET COUNT; Normal 314 {Thousand/u} 140-400 N (test code = 777-3) MPV; Normal (test code = 9.9 fL 7.5-12.5 N 27979-8) ABSOLUTE NEUTROPHILS (test 5125 {cells/uL} 8835-5780 N code = ABSOLUTE NEUTROPHILS) ABSOLUTE LYMPHOCYTES [...] Normal (test 7.6 % N code = 58097-7) EOSINOPHILS; Normal (test 0.4 % N code = 17033-3) BASOPHILS; Normal (test 1.1 % N code = 59502-7) [facility]] C-REACTIVE [id number] 16:35:00 Test Item Value Reference Range Interpretation Comments C-REACTIVE PROTEIN (test code = 2.5 mg/L <8.0 N C-REACTIVE PROTEIN) [facility]
[2022-10-28 11:17] LABS: Urine Blood Trace-intact (Negative); Urine Glucose Negative (Negative); Urine Protein Negative (Negative); Urine Specific Gravity <=1.005 (1.005-1.030); Urine pH 5.5 (5.0-7.0)
[2022-10-28 11:22] LABS: Absolute Lymphocytes (CBC) 3.5 K/uL (0.7-4.9); Lymphocytes % 41.1 % (15.3-44.8); MCV 91.4 fL (80-100); MPV 7.7 fL (7.6-11.3); RBC Red Blood Cell Count 4.27 M/uL (3.86-4.86)
--- NOTE | 2022-10-28 11:40 | RAD REPORT ---
EXAM DESCRIPTION: US - Abdomen Exam Limited - 10/28/2022 11:23 am CLINICAL HISTORY: ABD PAIN COMPARISON: CT-STONE PROTOCOL dated 11/18/2010 FINDINGS: The gallbladder demonstrates numerous gallstones. Mild gallbladder wall thickening. The wa ll measures 5 millimeters. This may be an overestimate due to a wall echo shadow complex. The common bile duct is normal measuring 3 mm. The liver demonstrates an anechoic lesion in the right hepatic lobe which is benign. Increased echoge nicity of the liver. IMPRESSION: Distended gallbladder with numerous stones. Questionable gallbladder wall thickening. Ac [place] cholecystitis cannot be either confirmed or excluded based on these findings.
[2022-10-28 11:41] LABS: Bilirubin Total 0.2 mg/dL (0.2-1.0); Potassium 3.8 mmol/L (3.5-5.1); Protein, Total 7.4 g/dL (6.4-8.2)
[2022-10-28] MEDS ORDERED: MORPHINE 4 MG/ML SYR ONE (12:08)
[2022-10-28] MEDS ORDERED: ONDANSETRON 4 MG/2 ML VIAL ONE ×2 (12:09→16:26)
--- NOTE | 2022-10-28 12:22 | RAD REPORT ---
EXAM DESCRIPTION: CTAbdomen Pelvis W Contrast - 10/28/2022 12:09 pm CLINICAL HISTORY: abdominal pain, hysterectomy COMPARISON: No comparisons TECHNIQUE: CT of the abdomen and pelvis was performed. 100 cc of Isovue 370. All CT scans are performed using dose optimization technique as appropriate and may include automated exposure control or mA/KV adjustment according to patient size. FINDINGS: Lower chest: Mild circumferential thickened distal esophagus. Liver: Low-density liver lesions that have benign imaging features. Biliary: No biliary ductal dilatation. Stomach: No significant focal abnormality. Duodenum: No significant focal abnormality. Pancreas: No significant abnormality. Spleen: No significant abnormality. Adrenal: No suspicious lesions. Kidney/ureter: No hydronephrosis. No renal calculi. No ureteral calculi. Retroperitoneum: No retroperitoneal adenopathy. Vascular: No aneurysm. Bowel: Moderate colonic stool. There is also formed stool in the distal small bowel. Normal appendix. . Peritoneum: No ascites or free air. Bladder: Grossly unremarkable. Reproductive: No adnexal masses. Hysterectomy. Bones: No acute fracture. L4-5 fusion. Other: n/a IMPRESSION: No acute intra-abdominal or pelvic finding. Normal appendix. Moderate colonic stool. In addition, formed stool present in the distal small bowel which may indicat e slow transit.
[2022-10-28] MEDS ORDERED: FENTANYL CITR 100 MCG/2 ML ONE (12:51)
--- NOTE | 2022-10-28 12:59 | EDPHYS ---
Physician Documentation [facility] Name: Gaurav Beavers Age: 52 yrs Sex: Female : 1970 Arrival Date: 10/28/2022 Time: 10:39 Bed 16 Private MD: ED Physician Khai Childers HPI: 10/28 10:59 This 52 yrs old Female presents to ER via Ambulatory with complaints of jmm Epigastric Pain - gallbladder. 10:59 The patient presents with abdominal pain. Onset: The symptoms/episode began/occurred jmm gradually, 3 day(s) ago. The symptoms radiate to right back. Associated signs and symptoms: Pertinent positives: nausea. Is a 52-year-old female with history of arthritis, RA, depression the presents emerged department with complaints of right flank pain and nausea. Symptoms began this past Thursday, was seen at all times and advised follow general surgery. States pain intensified today.. 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 - Social history:: Smoking status: Patient denies any tobacco usage or history of. ROS: 10:59 Constitutional: Negative for fever, chills, and weight loss, Cardiovascular: Negative jmm for chest pain, palpitations, and edema, Respiratory: Negative for shortness of breath, cough, wheezing, and pleuritic chest pain. 10:59 Abdomen/GI: Positive for nausea. 10:59 Back: Positive for radiated pain. 10:59 All other systems are negative. Exam: 10:59 Constitutional: This is a well developed, well nourished patient who is awake, alert, jmm and in no acute distress. Head/Face: atraumatic. Eyes: EOMI, no conjunctival erythema appreciated ENT: Moist Mucus Membranes Neck: Trachea midline, Supple Chest/axilla: Normal chest wall appearance and motion. Cardiovascular: Regular rate and rhythm. No edema appreciated Respiratory: Normal respirations, no respiratory distress appreciated 10:59 Back: Normal ROM Skin: General appearance color normal MS/ Extremity: Moves all extremities, no obvious deformities appreciated, no edema noted to the lower extremities Neuro: Awake and alert 10:59 Abdomen/GI: Inspection: abdomen appears normal, Bowel sounds: normal, Palpation: soft, mild abdominal tenderness, in the right upper quadrant. Vital Signs: 11:06 BP 116 / 74; Pulse 66; Resp 17; Temp 97.4; Pulse Ox 100% ; Weight 99.79 kg; Height 5 jl7 ft. 5 in. (165.10 cm); Pain 10/10; 12:45 BP 118 / 70; Pulse 63; Resp 16; Pulse Ox 99% on R/A; Pain 10/10; ss 11:06 Body Mass Index 36.61 (99.79 kg, 165.10 cm) jl7 MDM: 10:59 Patient medically screened. [facility] 12:57 Data reviewed: vital signs, nurses notes. Consideration of Admission/Observation [facility] Patient was admitted/placed on observation. Management of patient was discussed with the following: Hospitalist: seth Musa. Emergency Medical Tech: Dr. Sharma. I considered the following discharge prescriptions or medication management in the emergency department Medications were administered in the Emergency Department. See MAR. Counseling: I had a detailed discussion with the patient and/or guardian regarding: the historical points, exam findings, and any diagnostic results supporting the discharge/admit diagnosis, lab results, radiology results, the need for further work-up and treatment in the hospital. 10/28 11:00 Order name: CBC with Diff [facility] 10/28 11:00 Order name: CMP [facility] 10/28 11:00 Order name: Lipase [facility] 10/28 11:17 Order name: Urine Dipstick-Ancillary; Complete Time: 11:32 [facility] 10/28 11:25 Order name: CBC with Automated Diff; Complete Time: 11:32 [facility] 10/28 11:41 Order name: Comprehensive Metabolic Panel; Complete Time: 12:12 [facility] 10/28 11:41 Order name: Lipase; Complete Time: 12:12 [facility] 10/28 12:21 Order name: SARS RAPID [facility] 10/28 13:22 Order name: SARS-COV-2 Antigen Rapid; Complete Time: 13:22 [facility] 10/28 20:28 Order name: Phosphorus [facility] 10/28 20:28 Order name: Creatine Phosphokinase [facility] 10/28 20:28 Order name: T4 Free [facility] 10/28 20:28 Order name: Magnesium [facility] 10/28 20:28 Order name: Thyroid Stimulating Hormone [facility] 10/28 11:00 Order name: CT Abd/Pelvis - IV Contrast Only [facility] 10/28 11:00 Order name: US Abdomen Limited [facility] 10/28 11:00 Order name: IV Saline Lock; Complete Time: 11:13 [facility] 10/28 11:00 Order name: Labs collected and sent; Complete Time: 11:13 [facility] 10/28 11:40 Order name: US; Complete Time: 12:12 [facility] 10/28 12:23 Order name: CT; Complete Time: 12:25 EDMS Administered Medications: 11:33 CANCELLED (allergy): Ketorolac 30 mg IVP once [facility] 12:18 Drug: Zofran (Ondansetron) 4 mg Route: IVP; Site: left antecubital; ss 12:46 Follow up: Response: No adverse reaction ss 12:22 Drug: morphine 4 mg Route: IVP; Infused Over: 4 mins; Site: left antecubital; ss 12:46 Follow up: Response: No adverse reaction; Pain is unchanged, physician notified ss 12:51 Drug: fentaNYL (PF) 50 mcg Route: IVP; Site: left antecubital; ss 13:12 Drug: Zosyn (piperacillin-tazobactam) 3.375 grams Route: IVPB; Infused Over: 60 mins; ss Site: left antecubital; Disposition: 16:18 Co-signature as Attending Physician, Khai Childers DO I reviewed the patient's care ms3 provided by the Advanced Practice Provider and agree with the diagnosis and treatment plan. Disposition Summary: 10/28/22 12:59 Hospitalization Ordered Provider: Ronny Antony Condition: Stable jmm Problem: new jmm Symptoms: are unchanged jmm Bed/Room Type: Standard [facility] Hospitalization Status: Inpatient Admission(10/28/22 16:21) ms3 Location: Telemetry/MedSurg (Inpatient)(10/28/22 21:01) rv1 Room Assignment: 210(10/28/22 21:01) rv1 Diagnosis - Acute cholecystitis craig Forms: - Medication Reconciliation Form craig - SBAR form craig Signatures: Dispatcher [employer] EDMeng Clark PA PA jmm Smirch, Shelby, RN RN ss Karen Chiang RN RN jl7 Khai Childers DO DO ms3 Maria Teresa Dobbins rv1 Corrections: (The following items were deleted from the chart) 11:11 11:09 Allergies: Ibuprofen; aren jl7 11:33 11:00 Ketorolac 30 mg IVP once ordered. craig srinivasan 14:45 12:59 Telemetry/MedSurg (observation) craig bhardwaj7 14:45 12:59 craig jl7 16:21 12:59 Observation carie ms3 21:01 14:45 [facility] ER HOLD jl7 rv1 21:01 14:45 ERHOLD- 7 rv1
--- NOTE | 2022-10-28 12:59 | ER ---
Nurse's Notes [facility] Name: Gaurav Beavers Age: 52 yrs Sex: Female : 1970 Arrival Date: 10/28/2022 Time: 10:39 Bed 16 Private MD: Diagnosis: Acute cholecystitis Presentation: 10/28 11:06 Chief complaint: Patient states: Right mid back pain since Thursday, [place] [facility] said lots jl7 of gallstones. Coronavirus screen: Vaccine status: Patient reports receiving the 2nd dose of the covid vaccine. At this time, the client does not indicate any symptoms associated with coronavirus-19. Ebola Screen: No symptoms or risks identified at this time. Initial Sepsis Screen: Does the patient meet any 2 criteria? No. Patient's initial sepsis screen is negative. Does the patient have a suspected source of infection? No. Patient's initial sepsis screen is negative. Risk Assessment: Do you want to hurt yourself or someone else? Patient reports no desire to harm self or others. Onset of symptoms was October 24, 2022. 11:06 Method Of Arrival: Ambulatory jl7 11:06 Acuity: VENKAT 3 jl7 Triage Assessment: 11:09 General: Appears in no apparent distress. uncomfortable, Behavior is calm, cooperative, jl7 appropriate for age. Pain: Complains of pain in right mid back Pain currently is 10 out of 10 on a pain scale. GI: Abdomen is round. 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 - Social history:: Smoking status: Patient denies any tobacco usage or history of. Screenin:00 [place] ED Fall Risk Assessment (Adult) History of falling in the last 3 months, ss including since admission No falls in past 3 months (0 pts). Abuse screen: Denies threats or abuse. Denies injuries from another. Nutritional screening: No deficits noted. Tuberculosis screening: Never had TB. Assessment: 11:13 Reassessment: Pt to US via wheelchair. jl7 12:00 General: Behavior is calm, cooperative. Pain: Complains of pain in right upper quadrant ss and back and right mid back Pain currently is 10 out of 10 on a pain scale. Quality of pain is described as pressure, throbbing, Is continuous. Neuro: Level of Consciousness is awake, alert, obeys commands, Oriented to person, place, time, situation. Cardiovascular: Capillary refill < 3 seconds is brisk in bilateral fingers. Respiratory: Airway is patent Respiratory effort is even, unlabored, Respiratory pattern is regular, symmetrical. Derm: Skin is intact, is healthy with good turgor, Skin is pink, warm \T\ dry. normal. Musculoskeletal: Circulation, motion, and sensation intact. Range of motion: intact in all extremities, Swelling absent. Vital Signs: 11:06 BP 116 / 74; Pulse 66; Resp 17; Temp 97.4; Pulse Ox 100% ; Weight 99.79 kg; Height 5 jl7 ft. 5 in. (165.10 cm); Pain 10/10; 12:45 BP 118 / 70; Pulse 63; Resp 16; Pulse Ox 99% on R/A; Pain 10/10; ss 11:06 Body Mass Index 36.61 (99.79 kg, 165.10 cm) jl7 ED Course: 10:39 Patient arrived in ED. as 10:41 Meng Krause PA is PHCP. [facility] 10:41 Khai Childers DO is Attending Physician. [facility] 11:09 Triage completed. jl7 11:09 Arm band placed on right wrist. Patient placed in waiting room, Patient notified of 7 wait time. 12:00 Patient has correct armband on for positive identification. ss 12:02 Kizzy Oneill, SHANIQUE is Primary Nurse. ss 12:58 Ronny Antony MD is Hospitalizing Provider. m 13:02 SARS RAPID Sent. rs5 13:39 CT Abd/Pelvis - IV Contrast Only Sent. ss 13:39 US Abdomen Limited Sent. ss 16:00 CBC with Diff Sent. ko1 16:00 CMP Sent. ko1 16:00 Lipase Sent. ko1 23:35 No provider procedures requiring assistance completed. Patient admitted, IV remains in ll3 place. Administered Medications: 11:33 CANCELLED (allergy): Ketorolac 30 mg IVP once [facility] 12:18 Drug: Zofran (Ondansetron) 4 mg Route: IVP; Site: left antecubital; ss 12:46 Follow up: Response: No adverse reaction 12:22 Drug: morphine 4 mg Route: IVP; Infused Over: 4 mins; Site: left antecubital; ss 12:46 Follow up: Response: No adverse reaction; Pain is unchanged, physician notified ss 12:51 Drug: fentaNYL (PF) 50 mcg Route: IVP; Site: left antecubital; ss 13:12 Drug: Zosyn (piperacillin-tazobactam) 3.375 grams Route: IVPB; Infused Over: 60 mins; ss Site: left antecubital; Medication: 12:00 VIS not applicable for this client. Outcome: 12:59 Decision to Hospitalize by Provider. craig 23:35 Admitted to Med/surg accompanied by nurse, via wheelchair, room 210, with chart, Report ll3 called to SHANIQUE Zambrano 23:35 Condition: stable 23:35 Instructed on the need for admit, Demonstrated understanding of instructions. 23:36 Patient left the ED. 3 Signatures: Meng Krause PA PA jmm Martinez, Amelia as Smirch, Shelby, RN RN Karen Chiang RN RN jl7 Iram Araiza RN RN [facility] Theresa Huntley RN RN ko1 Sotello, Ricky rs5 Corrections: (The following items were deleted from the chart) 11:11 11:09 Allergies: Ibuprofen; aren younger
[2022-10-28] MEDS ORDERED: PIPERACIL/TAZO 3.375 GM VIAL IV ONE ×2 (13:05→16:08)
[2022-10-28] MEDS ORDERED: NA CHLORIDE 0.9% 100 ML ONE ×2 (13:06→16:09)
[2022-10-28 13:22] LABS: SARS-CoV-2 Antigen Rapid Res Negative (Negative)
[2022-10-28] MEDS ORDERED: ACETAMINOPHEN 650MG/RECT SUPP PR PRN (14:44)
--- NOTE | 2022-10-28 14:45 | P.HP ---
Certification for Inpatient Patient admitted to: Observation With expected LOS: <2 Midnights Patient will require the following post-hospital care: None Practitioner: I am a practitioner with admitting privileges, knowledge of patient current condition, hospital course, and medical plan of care. Services: Services provided to patient in accordance with Admission requirements found in Title 42 Section 412.3 of the Code of Federal Regulations Patient History Date of Service: 10/28/22 Reason for admission: Right flank pain, epigastric pain History of Present Illness: Patient is a 52-year-old female with a past medical history significant for hypertension, depression, rheumatoid arthritis who presents with complaint of right flank pain that has been ongoing for the past 2 weeks. Patient indicated that pain has been constant and has become worse over time. Patient rated pain as 10/10 in severity and described pain as stabbing in quality. Patient also reports mild abdominal pain in the epigastric area. Patient reported associated signs and symptoms of nausea. Patient reported that she was seen at an outpatient ER facility 4 days ago and was diagnosed with cholelithiasis. Patient was instructed to follow-up with a surgeon and was discharged from the ER. Patient denies any other signs and symptoms. Symptoms are aggravated or re lieved by nothing. Patient decided to present to the hospital due to worsening symptoms. Allergies ibuprofen Adverse Reaction (Verified 01/15/17 18:29) Anaphylaxis NSAIDS (Non-Steroidal Anti-Inflamma Adverse Reaction (Verified 01/15/17 18:29) Anaphylaxis Home Medications: Celecoxib 200 mg PO BID 01/15/17 Cyclobenzaprine [Flexeril*] 10 mg PO BEDTIME 01/15/17 Duloxetine HCl [Cymbalta] 60 mg PO DAILY 01/15/17 Leflunomide 20 mg PO DAILY 01/15/17 inFLIXimab [Remicade] 1 stick SEECOM 01/15/17 Colchicine [Colcrys] 0.6 mg PO BID #60 tab 01/16/17 Gabapentin 800 mg PO 06/14/18 Hydrocodone Bit/Acetaminophen [[place] 7.5-325 Tablet] 1 tab PO DAILY 06/14/18 Lidocaine 4% Patch [Lidoderm 5% Patch*] 1 patch TOP PRN 06/14/18 Prednisone [Bob] 5 mg PO DAILY 06/14/18 Venlafaxine HCl *Xr* [Effexor XR] 75 mg PO DAILY 06/14/18 - Past Medical/Surgical History -: htn -: depression -: arthritis -: lumbar -: cervical spine -: hysterectomy - Family History Family History: Reviewed- Non-Contributory - Social History Smoking Status: Never smoker Alcohol use: Yes CD- Drugs: No Caffeine use: Yes Place of Residence: Home Review of Systems General: Unremarkable Eyes: Unremarkable ENT: Unremarkable Respiratory: Unremarkable Cardiovascular: Unremarkable Gastrointestinal: Nausea, Abdominal Pain Genitourinary: Other (Right flank pain.) Musculoskeletal: Unremarkable Integumentary: Unremarkable Neurological: Unremarkable Lymphatics: Unremarkable Physical Examination - Physical Exam General: Alert, In no apparent distress, Oriented x3, Cooperative HEENT: Atraumatic, PERRLA, Mucous membr. moist/pink, EOMI, Sclerae nonicteric Neck: Supple, 2+ carotid pulse no bruit, No LAD, Without JVD or thyroid abnormality Respiratory: Clear to auscultation bilaterally, Normal air movement Cardiovascular: No edema, Regular rate/rhythm, Normal S1 S2 Capillary refill: <2 Seconds Gastrointestinal: Hypoactive, Tenderness Musculoskeletal: No clubbing, No swelling, No contractures, No tenderness Integumentary: No rashes, No breakdown, No significant lesion Neurological: Normal speech, Normal tone, Normal affect Lymphatics: No axilla or inguinal lymphadenopathy - Studies Laboratory Data (last 24 hrs) 10/28/22 11:15: Sodium 143, Potassium 3.8, BUN 16, Creatinine 0.88, Glucose 106, Total Bilirubin 0.2, AST 14 L, ALT 18, Alkaline Phosphatase 64, Lipase 255 10/28/22 11:15: WBC 8.60, Hgb 12.9, Hct 39.0, Plt Count 332 Assessment and Plan - Plan -Acute cholecystitis. Noted on abdominal ultrasound.-Surgeon consulted. Recommended placing patient n.p.o. Patient placed on antibiotics. Continue supportive care. Further management per surgeon. --Acute pain. We will manage pain with current pain medication regimen. --Hypertension. Stable. We will manage BP with hydralazine as needed. --Class II obesity. Likely secondary to excess calories intake. Patient counseled on weight reduction, diet and excise therapy. --Constipation. CT abdomen indicates Moderate colonic stool. Patient placed on Fleet enema x1 dose. Continue supportive care. --Rheumatoid arthritis. We will manage pain with current pain medication regimen. Continue home medication when appropriate. --Depression\anxiety disorder. Continue home medication when appropriate. -- CKD 2. Stable. We will continue to monitor renal functions. --DVT prophylaxis with SCDs. Discharge Plan: Home Plan to discharge in: 48 Hours - Advance Directives Does patient have a Living Will: No Does patient have a Durable POA for Healthcare: No - Code Status/Comfort Care Code Status Assessed: Yes Physician Review: Patient Assessed, Agree with Above Assessment and Plan Critical Care: No
[2022-10-28] MEDS: NA CHLORIDE 0.9% 1,000 ML IV SCH (15:00)
[2022-10-28] MEDS: PIPER TAZO 3.375 GM in NA CHLORIDE 0.9% 100 ML IV SCH (16:02)
[2022-10-28] MEDS ORDERED: NA CHLORIDE 0.9% 1,000 ML ONE (16:08)
[2022-10-28] MEDS: ONDANSETRON 4 MG/2 ML VIAL IV PRN (16:21)
[2022-10-28] MEDS: HYDROMORPHONE HCL 1 MG/ML INJ IV PRN ×2 (16:21→20:16)
[2022-10-28] MEDS ORDERED: HYDROMORPHONE HCL 1 MG/ML INJ ONE ×2 (16:26→20:14)
[2022-10-28] MEDS ORDERED: HYDRALAZINE HCL 20 MG/ML VIAL IV PRN (19:08)
[2022-10-28] MEDS ORDERED: FLEET ENEMA ADULT PR ONE ×2 (19:09→20:14)
[2022-10-28 20:26] LABS: Magnesium 2.6 mg/dL (1.6-2.4); Phosphorus 4.1 mg/dL (2.5-4.9)
[2022-10-28 20:27] LABS: Thyroid Stimulating Hormone 13.7 uIU/mL (0.358-3.740)
[2022-10-29] MEDS: HYDROMORPHONE HCL 1 MG/ML INJ IV PRN ×3 (00:28→22:08)
[2022-10-29] MEDS: ONDANSETRON 4 MG/2 ML VIAL IV PRN ×3 (00:28→22:10)
[2022-10-29] MEDS: PIPER TAZO 3.375 GM in NA CHLORIDE 0.9% 100 ML IV SCH ×3 (00:29→17:46)
[2022-10-29] MEDS: NA CHLORIDE 0.9% 1,000 ML IV SCH ×2 (00:29→17:49)
[2022-10-29 04:13] LABS: Absolute Lymphocytes (CBC) 1.8 K/uL (0.7-4.9); Hematocrit 36.6 % (36.0-45.0); Lymphocytes % 18.3 % (15.3-44.8); MCV 91.7 fL (80-100); MPV 7.7 fL (7.6-11.3); RBC Red Blood Cell Count 3.99 M/uL (3.86-4.86)
[2022-10-29 04:23] LABS: Potassium 4.6 mmol/L (3.5-5.1)
[2022-10-29] MEDS ORDERED: Ringers Lactate 1,000 ML IV ONE (10:08)
[2022-10-29] MEDS ORDERED: METHYLPREDNISOLONE 125 MG INJ ONE (10:09)
[2022-10-29] MEDS ORDERED: FENTANYL CITR 100 MCG/2 ML ONE ×2 (11:00→12:27)
[2022-10-29] MEDS ORDERED: propofoL 200 MG/20 ML VIAL IV ONE (11:00)
[2022-10-29] MEDS ORDERED: ONDANSETRON 4 MG/2 ML VIAL ONE (11:00)
[2022-10-29] MEDS ORDERED: MIDAZOLAM HCL 2 MG/2 ML INJ ONE (11:00)
[2022-10-29] MEDS ORDERED: ROCURONIUM 50 MG/5 ML VIAL IV ONE (11:00)
[2022-10-29] MEDS ORDERED: LIDOCAINE 2% MPF 5 ML VIAL ONE (11:00)
[2022-10-29] MEDS ORDERED: LABETALOL 20 MG/4ML SYRINGE IV ONE (12:37)
--- NOTE | 2022-10-29 12:43 | P.BOP ---
Preoperative diagnosis: acute cholecystitis, symptomatic cholelithiasis Postoperative diagnosis: same Primary procedure: Laparoscopic cholecystectomy Janitor Head: Cami Wade (Cely) Estimated blood loss: <10cc Specimen: gb Findings: as above Anesthesia: General Complications: None Transferred to: Recovery Room Condition: Good
[2022-10-29] MEDS ORDERED: GLYCOPYRROLATE 0.2 MG/ML SYR ONE ×2 (12:45)
[2022-10-29] MEDS ORDERED: NEOSTIGMINE 1 MG/ML -10 ML VIAL ONE (12:47)
[2022-10-29] MEDS ORDERED: Mastisol Adhesive Liq ONE (12:51)
[2022-10-29] MEDS ORDERED: HYDROCODONE/APAP 5/325 MG TAB PO PRN (12:53)
[2022-10-29] MEDS: MORPHINE 4 MG/ML SYR ONE ×2 (13:27→13:32)
[2022-10-29] MEDS: HYDROMORPHONE HCL 1 MG/ML INJ ONE ×4 (13:37→13:52)
--- NOTE | 2022-10-29 13:37 | OP ---
Date of Procedure: 10/29/2022 Surgeon: Manuel Sharma MD Laundry Supervisor: Cami Del Rio. Preoperative Diagnoses: Acute cholecystitis symptomatic cholelithiasis. Postoperative Diagnosis: Acute cholecystitis symptomatic cholelithiasis. Procedure: Laparoscopic cholecystectomy. Estimated Blood Loss: Less than 10 mL. Specimen: Gallbladder. Anesthesia: General plus local. Indication: This is the case of a 52-year-old patient, who comes to us with above diagnoses. The pa tient fully explained the benefits, alternatives, and risks of laparoscopic possible open cholecystec teresa, which include, but not limited to infection, bleeding, damage to adjacent structures, anesthesi a complication, choledocholithiasis, bile leak, pancreatitis, ND, and even . She also understan ds this may not relieve any symptoms. She might need more than one surgical intervention. She under stood, signed a consent. Procedure In Detail: The patient was brought to the operating room, placed in supine position. Anes thesia was done without complication. Abdominal area was prepped and draped in the usual sterile fas hion. Marcaine 0.5% was injected for local anesthetic followed by sharp incision of the skin in the supraumbilical region since the patient has a previous incision in the lower part. The incision was carried down to fascia, which was opened under direct vision. Peritoneum was encountered, opened und er direct vision. Vicryl #1 placed inside the fascia. Abeba trocar was carefully introduced. Pneu moperitoneum was obtained. I placed 3 more trocars, 5 mm each one of them, 1 in the epigastric area, 2 in the right upper quadrant under direct visualization. This allowed me to put a grasper in the f undus of the gallbladder, another grasper in the infundibulum, retracting the gallbladder in the infe rolateral fashion, exposing the triangle of [place]ot, and obtaining critical view. Cystic duct and cyst ic artery were clearly isolated, freed circumferentially and a connection between those and the gallb ladder were clearly identified. I proceeded to ligate those by using at least 3 clips proximal, 1 cl ip distal, ligation in the middle. Same was done with the cystic artery. A small little branch of t he cystic artery was also ligated. Hepatic arteries and common bile duct were protected at all times . The gallbladder was removed from liver using Bovie cauterizer and removed from abdominal cavity us ing EndoCatch through the umbilical incision. The area was inspected once again. No bile leak, no b leeding. At that moment, I proceeded to remove the trocars under direct vision. Deflated the pneumo peritoneum. Closed the fascia with #1 Vicryl. Irrigated subcutaneous tissue, closed that with 3-0 c hromic and skin in a subcuticular fashion with 3-0 chromic and Steri-Strips on top. Sponge count, in strument counts correct. The patient tolerated the procedure well. The patient was sent to recovery in stable condition. JAKE/MINERVA Voice ID: [id number] Report ID: [id number]
--- NOTE | 2022-10-29 13:51 | CON ---
Date of Consultation: 10/29/2022 Diagnoses: Epigastric right upper quadrant pain, acute cholecystitis, symptomatic cholelithiasis. History Of Present Illness: This is the case of a 52-year-old patient with multiple medical problems , who comes to us with a 2-week history of epigastric right upper quadrant pain radiating to the back to the point that now it is more pronounced in the back. The patient was seen in the ER. They coul d not control her pain, so she was admitted to the hospital for cholecystectomy and a surgical consul t was obtained. She denies any dysuria, hematuria, hematochezia, melena. Denies any recent travelin g out of the country. Denies any family member sick at home. Recently, she was seen in the ER and s ent home to visit the surgeon, but apparently she did not have a chance to do, so the pain came back before that happened. Review of Systems: Nausea, vomiting, epigastric pain, right upper quadrant abdominal pain. Ten points otherwise unremar kable. Allergies: NSAID AND IBUPROFEN. Medications: Reviewed including Flexeril, Cymbalta, Remicade, Lidoderm, Effexor, [place]. Past Medical History: Hypertension, depression, rheumatoid arthritis. Past Surgical History: Includes hysterectomy and cervical spine surgery. Social History: She does not smoke. She does not drink alcohol. Physical Examination: General: The patient is awake, alert. HEENT: Pupils are equal and reactive. Anicteric. Neck: Supple. Chest: Clear. Heart: S1, S2. Abdomen: Epigastric right upper quadrant tenderness with Acosta sign positive. Breasts: Deferred. Pelvic: Deferred. Rectal: Deferred. Extremities: Good capillary refill. Laboratory Data: Blood work shows WBC count of 8 with hemoglobin of 12, potassium 3.8, glucose 106. Ultrasound of the abdomen shows cholelithiasis with gallbladder wall edema. Assessment: A 52-year-old patient with acute cholecystitis, symptomatic cholelithiasis. The benefit s, alternatives, and risks of laparoscopic possible open cholecystectomy were fully explained, which include, but not limited to infection, bleeding, damage to adjacent structures, anesthesia complicati on, choledocholithiasis, bile leak, pancreatitis, [place], and even . She also understands this may not relieve any symptoms. She might need more than one surgical intervention. She understood and si gned a consent. HM/MODL Voice ID: [id number] Report ID: [id number]
--- NOTE | 2022-10-29 21:07 | P.HP ---
Certification for Inpatient Patient admitted to: Inpatient With expected LOS: >2 Midnights Practitioner: I am a practitioner with admitting privileges, knowledge of patient current condition, hospital course, and medical plan of care. Services: Services provided to patient in accordance with Admission requirements found in Title 42 Section 412.3 of the Code of Federal Regulations Patient History Date of Service: 10/29/22 Reason for admission: Right flank pain, epigastric pain History of Present Illness: Gaurav called me yesterday with severe abdomen pain, I asked her to come to office but she was in too much pain and ends up in ER. SHe has acute cholecystitis. Initially she was admitted to hospital doctors eventhough she kept on telling ER staff that she is my patient. I was never called about her until today when Dr. Antony approached me. She is stable. SHe went for cholecystectomy and did well. SHe will go home in am. Allergies ibuprofen Adverse Reaction (Verified 01/15/17 18:29) Anaphylaxis NSAIDS (Non-Steroidal Anti-Inflamma Adverse Reaction (Verified 01/15/17 18:29) Anaphylaxis Home medications list reviewed: Yes Home Medications: Atorvastatin Calcium [Lipitor] 10 mg PO DAILY 10/29/22 Bisoprolol/Hydrochlorothiazide [Bisoprolol-Hctz 5-6.25 mg Tab] 1 each PO DAILY 10/29/22 Ciprofloxacin HCl [Cipro 250 MG Tablet*] 250 mg PO BID 10/29/22 Cyclobenzaprine [Flexeril] 10 mg PO BEDTIME 10/29/22 Duloxetine HCl [Cymbalta] 60 mg PO BID 10/29/22 Fenofibrate 160 mg PO DAILY 10/29/22 Gabapentin [Neurontin] 1,800 mg PO BID 10/29/22 Ondansetron [Zofran] 4 mg PO Q6H PRN 10/29/22 Tramadol HCl [Ultram] 50 mg PO BEDTIME 10/29/22 predniSONE [Deltasone] 10 mg PO DAILY 10/29/22 - Past Medical/Surgical History Has patient received pneumonia vaccine in the past: No Diabetic: No -: htn -: depression -: arthritis -: RA -: HLD -: Chronic back pain -: lumbar sx x3 (discectomy x2, and bone fusion) -: cervical spine (bone fusion x3) -: hysterectomy - Family History Family History: Reviewed- Non-Contributory - Family History Father -: Lung disease, Cancer Sister -: Cancer Notes: breast cancer Mother -: Other (see notes) Notes: RA - Social History Smoking Status: Never smoker Alcohol use: No CD- Drugs: No Caffeine use: Yes Place of Residence: Home Review of Systems 10-point ROS is otherwise unremarkable Gastrointestinal: Abdominal Pain Physical Examination - Vital Signs Temperature: 97.9 F Blood Pressure: 141/67 Pulse: 88 Respirations: 16 Pulse Ox (%): 95 - Physical Exam General: Oriented x3, Mild distress, Obese HEENT: Atraumatic, PERRLA, Mucous membr. moist/pink, EOMI, Sclerae nonicteric Neck: Supple, 2+ carotid pulse no bruit, No LAD, Without JVD or thyroid abnormality Respiratory: Clear to auscultation bilaterally, Normal air movement Cardiovascular: Regular rate/rhythm, Normal S1 S2 Gastrointestinal: Normal bowel sounds, No tenderness Musculoskeletal: No tenderness Integumentary: No rashes Neurological: Normal gait, Normal speech, Normal strength at 5/5 x4 extr, Normal tone, Normal affect Lymphatics: No axilla or inguinal lymphadenopathy Assessment and Plan - Problems (Diagnosis) (1) Acute cholecystitis Current Visit: Yes Status: Acute (2) Rheumatoid arthritis Current Visit: Yes Status: Chronic Plan: sp cholecystectomy, stable. (3) Diabetes Current Visit: Yes Status: Chronic Plan: new onset. She is under my care. - Advance Directives Does patient have a Living Will: No Does patient have a Durable POA for Healthcare: No Physician Review: Patient Assessed, Agree with Above Assessment and Plan
[2022-10-29 21:10] VITALS: O2SAT 93
[2022-10-30 01:25] VITALS: BMI 39.6
[2022-10-30] MEDS: PIPER TAZO 3.375 GM in NA CHLORIDE 0.9% 100 ML IV SCH ×2 (01:37→08:47)
[2022-10-30] MEDS: HYDROMORPHONE HCL 1 MG/ML INJ IV PRN (03:23)
[2022-10-30] MEDS: NA CHLORIDE 0.9% 1,000 ML IV SCH (07:00)
[2022-10-30 08:21] VITALS: BP 110/59; TEMP 97
--- NOTE | 2022-10-30 20:51 | P.DS ---
Admission Date: 10/28/22 Discharge Date: 10/30/22 Disposition: ROUTINE DISCHARGE Discharge Condition: FAIR Reason for Admission: Right flank pain, epigastric pain - Problems (1) Acute cholecystitis Status: Acute (2) Rheumatoid arthritis Status: Chronic (3) Diabetes Status: Chronic Brief History of Present Illness: Gaurav called me yesterday with severe abdomen pain, I asked her to come to office but she was in too much pain and ends up in ER. SHe has acute cholecystitis. Initially she was admitted to hospital doctors eventhough she kept on telling ER staff that she is my patient. I was never called about her until today when Dr. Antony approached me. She is stable. SHe went for chol ecystectomy and did well. SHe will go home in am. Hospital Course: JULIO CESAR COMES WITH ABDOMEN PAIN THAT WAS SEVERE. SHE HAS ACUTE CHOLECYSTITIS AND WAS REMOVED BY DR. SHARMA. SHE IS DOING GREAT AND IS SENT HOME. Vital Signs/Physical Exam: Temp Pulse Resp BP Pulse Ox 97.0 F 68 16 110/59 L 96 10/30/22 08:00 10/30/22 08:00 10/30/22 08:00 10/30/22 08:00 10/30/22 08:00 Laboratory Data at Discharge: WBC 9.60 K/uL (4.3-10.9) 10/29/22 03:33 Hgb 12.2 g/dL (12.0-15.0) 10/29/22 03:33 Hct 36.6 % (36.0-45.0) 10/29/22 03:33 Plt Count 311 K/uL (152-406) 10/29/22 03:33 Sodium 141 mmol/L (136-145) 10/29/22 03:33 Potassium 4.6 mmol/L (3.5-5.1) D 10/29/22 03:33 BUN 14 mg/dL (7-18) 10/29/22 03:33 Creatinine 0.86 mg/dL (0.55-1.02) 10/29/22 03:33 Glucose 139 mg/dL (74-106) H 10/29/22 03:33 Phosphorus 4.1 mg/dL (2.5-4.9) 10/28/22 19:47 Magnesium 2.6 mg/dL (1.6-2.4) H 10/28/22 19:47 Total Bilirubin 0.2 mg/dL (0.2-1.0) 10/28/22 11:15 AST 14 U/L (15-37) L 10/28/22 11:15 ALT 18 U/L (13-56) 10/28/22 11:15 Alkaline Phosphatase 64 U/L (45-117) 10/28/22 11:15 Lipase 255 U/L (73-393) 10/28/22 11:15 Home Medications: Atorvastatin Calcium [Lipitor] 10 mg PO DAILY 10/29/22 Bisoprolol/Hydrochlorothiazide [Bisoprolol-Hctz 5-6.25 mg Tab] 1 each PO DAILY 10/29/22 Ciprofloxacin HCl [Cipro 250 MG Tablet*] 250 mg PO BID 10/29/22 Cyclobenzaprine [Flexeril] 10 mg PO BEDTIME 10/29/22 Duloxetine HCl [Cymbalta] 60 mg PO BID 10/29/22 Fenofibrate 160 mg PO DAILY 10/29/22 Gabapentin [Neurontin] 1,800 mg PO BID 10/29/22 Ondansetron [Zofran] 4 mg PO Q6H PRN 10/29/22 Tramadol HCl [Ultram] 50 mg PO BEDTIME 10/29/22 predniSONE [Deltasone] 10 mg PO DAILY 10/29/22 Followup: Eric Weaver MD [Primary Care Provider] - (call to schedule follow up appointment.) Manuel Sharma MD [ACTIVE - CAN ADMIT] - (follow up in one week, call to schedule appointment )
== END 2022-10-30 09:38 | disposition home or self-care (01) ==
LOC: ER 10:19 → ERHOLD 14:38 → 2ND 21:11
PROVIDERS: ADMIT Internal Medicine; ATTEND Internal Medicine
PROC: 0FT44ZZ Resection of Gallbladder, Percutaneous Endoscopic Approach (ICD-10-PCS; principal; 2022-10-29 12:15)
DX: K80.10 Calculus of gallbladder with chronic cholecystitis without obstruction (principal); M06.9 Rheumatoid arthritis, unspecified; E11.9 Type 2 diabetes mellitus without complications; Z20.822 Contact with and (suspected) exposure to COVID-19
CPT/HCPCS: 85025 ×2; 80048; 36415; 83735; 82550; 84100; 88304; 84443; 81003; 84439; 83690; 80053; 74177; 76705; 94010; 96375; 96374; 99285; 87811; 47562; Q9967; J2704; J2710; J2543 ×7; J2001; J2250; J3010 ×3; J1170 ×8; J7120; J7030 ×3; J2930; J2405 ×6; G0378

== ENCOUNTER 2022-11-22 11:35 | Emergency (ER) | payer OTHER ==
--- OUTSIDE RECORDS SUMMARY | 2022-11-22 11:42 | XMS REPORT | Continuity of Care Document ---
:1970 Author Organization [facility] t Address [address] [place] [address] Care Team Providers Name Role Phone Pcp, Patient Does Not Have A Primary Care Physician [id number] Eric Weaver MD Attending Clinician Murphy Rosa MD Attending Clinician SETRLING_Huang_Drake_MOI Attending Clinician Unavailable Nura FITZGERALD, Dee Dee Lau Attending Clinician Drake Encinas Attending Clinician Unavailable David Nation MD Attending Clinician Catherine Escobar APRN Attending Clinician Provider, Unknown Attending Clinician Unavailable Arabella RODRÍGUEZ, Donald Mcbride Attending Clinician [phone] Rocky Meyer NP, Bernice Attending Clinician ELVIA WEINBERG Attending Clinician Unavailable Therapy, [facility] Attending Clinician Unavailable Elvia Weinberg MD Attending Clinician Doctor Unassigned, [place] Attending Clinician Unavailable MARIBELL COREA M.D. Attending Clinician Unavailable Ashish Shah Attending Clinician Lamberto Decker Attending Clinician NIKITA HOGAN M.D. Attending Clinician Unavailable Nikita Hogan Attending Clinician SCOTTYHuang_Drake_MOI Admitting Clinician Unavailable MOE, MURPHY Admitting Clinician Unavailable Payers Payer Name Policy Type Policy Number Effective Date Expiration Date Sylvie deutsch [place] [id number] [employer]O [employer]AP[employer] 1970 [facility] [id number] 2020 00:00:00 Problems Condition Condition Condition Status [...] Radiculopa Disease Active M ethodi thy, thy, 5-23 st cervical cervical 00:00: Hospit a region region 00 l UNK UNK Diagnosis Active 2017-092018-08-07 Mem oria Active 15:20:00 l 07/02/2018 00:00: Elder garvey 00 [facility] Spinal Spinal Disease Active Univers stenosis stenosis [...] Active Univers ALLERGIE Class [facility] of [facility] Family History Family Member Diagnosis Comments Start Date Stop Date Source Mother Family history [facility] arthritis Mother Family history of [facility] hypertension Sister Family history of essential [facility] hypertension Social History Social Habit Start Date Stop Date Quantity Comments Source Alcohol intake 2022-04-04 2022-04-04 Ex-drinker [facility] 00:[facility]:00 00:00:00 (finding) Hospital Tobacco use and 2022-01-20 2022-01-20 Smokeless tobacco [facility] exposure 00:00:00 00:00:00 non-user Hospital Sex Assigned At [birth year] [facility] 00:[facility] 00:[facility]:00 Hospital Smoking Status Start Date Stop Date Source Unknown if ever smoked [facility] Never smoked tobacco [facility] Medications Ordered Filled Start Stop Current Ordering Indication Dosage Frequency Signature Comments Components Source Medication Medication Date Date Medication? Clinician (SIG) Name Name cyclobenzap Yes 10mg QD Take 10 mg Methodi rine 7-[address] (FLEXERIL) 15:26: nightly. [facility] 10 mg 02 l tablet cyclobenzap Yes 10mg QD Take 10 mg Methodi rine 7-[address] (FLEXERIL) 15:26: nightly. [facility] 10 mg 02 l tablet diazePAM 2021- No [id number] 2.5mg Q.[id number] Take 0.5 Methodi (VALIUM) 04-[id number] MG tablet 00:00: 04:59 3D (2.5 mg [facility] 00 :[facility] total) by l mouth 3 (three) times a day as needed for muscle spasms (severe muscle spasm) for up to 10 days. diazePAM No [id number] 2.5mg Q.[id number] Take 0.5 Method[facility] (VALIUM) 04-[id number] MG tablet 00:00: 04:59 3D (2.5 mg [facility] 00 :00 total) by l mouth 3 (three) times a day as needed for muscle spasms (severe muscle spasm) for up to 10 days. HYDROcodone 2021- No [id number] 1{tbl} Q4H Take 1 Methodi -acetaminop 04-[address] hen (NORCO) 00:00: 04:59 mouth [facility] 10-325 mg 00 :00 every 4 l per tablet (four) hours as needed (pain) for up to 10 days .acute pain. Max Daily Amount: 6 tablets methocarbam 2021- No 750mg Q.25D Take 1 M ethodi oL 04-[address] (Robaxin-75 00:00: 04:59 (750 mg Ho spita 0) 750 MG 00 :00 total) by l tablet mouth 4 (four) times a day as needed for muscle spasms for up to 10 days. HYDROcodone 2021-0 2021- No [id number] 1{tbl} Q4H Take 1 Methodi -acetaminop -04-[address] hen ([employer]) 00:00: 04:59 mouth [facility] 10-325 mg 00 :00 every 4 l per tablet (four) hours as needed for moderate pain for up to 10 days .acute pain. Max Daily Amount: 6 tablets HYDROcodone 2021-0 2021- No [id number] 1{tbl} Q4H Take 1 Methodi -acetaminop -04-[address] hen ([employer]) 00:00: 04:59 mouth [facility] 10-325 mg 00 :00 every 4 l per tablet (four) hours as needed (pain) for up to 10 days .acute pain. Max Daily Amount: 6 tablets methocarbam 2021- No 750mg Q.25D Take 1 M ethodi oL 04-[address] (Robaxin-75 00:00: 04:59 (750 mg Ho spita 0) 750 MG 00 :00 total) by l tablet mouth 4 (four) times a day as needed for muscle spasms for up to 10 days. HYDROcodone 2021- No 1{tbl} Q4H Take 1 Methodi -acetaminop -04-[address] hen ([employer]) 00:00: 04:59 mouth [facility] 10-325 mg 00 :00 every 4 l per tablet (four) hours as needed for moderate pain for up to 10 days .acute pain. Max Daily Amount: 6 tablets diazePAM 2021-2021- No 2.5mg Q.[id number] Take 0.5 Methodi (VALIUM) 5 04-03- [id number] tablets st MG tablet 00:00: 00:00 3D (2.5 mg [facility] 00 :00 total) by l mouth 3 (three) times a day as needed for muscle spasms (severe muscle spasm) for up to 10 days. diazePAM 2021-2021- No 2.5mg Q.[id number] Take 0.5 Methodi (VALIUM) 5 04-[id number] MG tablet 00:00: 00:00 3D (2.5 mg [facility] 00 :00 total) by l mouth 3 (three) times a day as needed for muscle spasms (severe muscle spasm) for up to 10 days. diazePAM 2021-0 2021- No 2.5mg Q8H Take 0.5 Met hodi (VALIUM) 5 04-03-[address] MG tablet 00:00: 00:00 (2.5 mg [facility] 00 :00 total) by l mouth every 8 (eight) hours as needed for muscle spasms (severe muscle spasm) for up to 10 days. methocarbam 2021-0 202- No 750mg Q.25D Take 1 M ethodi oL 04-[address] (Robaxin-75 00:00: 00:00 (750 mg Ho spita 0) 750 MG 00 :00 total) by l tablet mouth 4 (four) times a day as needed for muscle spasms for up to 10 days. diazePAM 2021-0 2021- No 2.5mg Q8H Take 0.5 Met hodi (VALIUM) 5 04-[address] MG tablet 00:00: 00:00 (2.5 mg [facility] 00 :00 total) by l mouth every 8 (eight) hours as needed for muscle spasms (severe muscle spasm) for up to 10 days. methocarbam 2021-0 2021- No 750mg Q.25D Take 1 M ethodi oL 04-[address] (Robaxin-75 00:00: 00:00 (750 mg Ho spita 0) 750 MG 00 :00 total) by l tablet mouth 4 (four) times a day as needed for muscle spasms for up to 10 days. methocarbam 2-0 2022- No 500mg Q6H Take 1 Me thodi oL 02-04-[address] (ROBAXIN) 00:00: 00:00 (500 mg [facility] 500 MG 00 :00 total) by l tablet mouth every 6 (six) hours as needed for muscle spasms. methocarbam 2-0 2022- No 500mg Q6H Take 1 Me thodi oL 02-04 07-[address] (ROBAXIN) 00:00: 00:00 (500 mg [facility] 500 MG 00 :00 total) by l tablet mouth every 6 (six) hours as needed for muscle spasms. cyclobenzap 2021- No 10mg QD Take 10 mg Methodi rine 01-20-[address] (FLEXERIL) 00:00: 00:00 nightly. Ho spita 10 mg 00 :00 l tablet cyclobenzap 2021- No 10mg QD Take 10 mg Methodi rine 01-20-[address] (FLEXERIL) 00:00: 00:00 nightly. Ho spita 10 mg 00 :00 l tablet traMADoL 2021-0 Yes 50mg QD Take 50 mg Met hodi (ULTRAM) 50 5-[address] mg tablet 00:00: nightly as Ho spita 00 needed. l traMADoL 2021-0 Yes 50mg QD Take 50 mg Met hodi (ULTRAM) 50 5-[address] mg tablet 00:00: nightly as Ho spita 00 needed. l Rinvoq 15 2021- No 15mg QD Take 15 mg M ethodi mg tablet 01-07-[address] extended 00:00: 00:00 daily. Hospit a release 24 00 :00 Last dose l hr ER per tablet prescribin g is 01/24/2022 Rinvoq 15 2021-0 2021- No 15mg QD Take 15 mg M ethodi mg tablet 01-07-[address] extended 00:00: 00:00 daily. Hospit a release 24 00 :00 Last dose l hr ER per tablet prescribin g is 01/24/2022 gabapentin 2021-0 Yes 1800mg Q.5D Take 1,800 Methodi (NEURONTIN) 4-[address] 600 mg 00:00: mouth 2 Hospita tablet 00 (two) l times a day. gabapentin 2022-0 Yes 1800mg Q.5D Take 1,800 Methodi (NEURONTIN) 4-[address] 600 mg 00:00: mouth 2 Hospita tablet 00 (two) l times a day. famotidine 2021-0 Yes 20mg QD Take 20 mg M ethodi (PEPCID) 20 4-[address] MG tablet 00:00: nightly. [facility] 00 l famotidine 2022-0 Yes 20mg QD Take 20 mg M ethodi (PEPCID) 20 4-[address] MG tablet 00:00: nightly. [facility] 00 l omeprazole Yes 40mg QD Take 40 mg M ethodi (PriLOSEC) 4-[address] 40 MG 00:00: daily. Hospita capsule 00 l omeprazole 0 Yes 40mg QD Take 40 mg M ethodi (PriLOSEC) [address] 40 MG 00:00: daily. Hospita capsule 00 l bisoproloL- Yes 1{tbl} QD Take 1 Me thodi hydrochloro 3-[address] thiazide 00:00: mouth Hospita (ZIAC) 00 daily. l 5-6.25 mg per tablet bisoproloL- Yes 1{tbl} QD Take 1 Me th[facility] hydrochloro 3-[address] thiazide 00:00: mouth Hospita (ZIAC) 00 daily. l 5-6.25 mg per tablet traZODone 2020-09 Yes 50mg QD Take 50 mg Me thodi (DESYREL) 0-[address] 50 MG 00:00: nightly. Hospita tablet 00 l traZODone 2020-09 Yes 50mg QD Take 50 mg Me thodi (DESYREL) 0-[address] 50 MG 00:00: nightly. Hospita tablet 00 l casirivimab 2020- No [id number] 1200mg 1,200 mg, Univers -imdevimab 05-09 IV ity of 1200 mg in 22:15: 21:41 Infusion, [place] 60 mL NS 00 :00 ONCE, Medical MINI-BAG Administer Branc h over 20 Minutes, Bridgette 05/09/21 at 1715, For 1 dose
Ad anchorer as an IV infusion via pump or gravity through an intravenou s line containing a sterile, in-line or add-on 0.2-micron polyethers ulfone (PES) filter. Stable 36 hours refrigerat ed; 4 hours at room temperatur e.
fenofibrate Yes 160mg QD Take 160 M ethodi (LOFIBRA) 4-[address] 160 MG 00:00: mouth Hospita tablet 00 nightly. l fenofibrate Yes 160mg QD Take 160 M [...] 20 MG Oral 9-21 COREA TABLET BY Physici Tablet Tablet 00:00: M.D. MOUTH ans 00 EVERY DAY predniSONE Yes 2{tbl} Take 2 Met hodi (DELTASONE) 1-[address] 5 mg tablet 00:00: mouth as Ho spita 00 needed. l predniSONE predniSONE Yes MARIBELL TAKE 2 UT 5 MG Oral 5 MG Oral 1-11 COREA TABLETS BY Physici Tablet Tablet 00:00: M.D. MOUTH ans 00 EVERY DAY predniSONE Yes 2{tbl} Take 2 Met hodi (DELTASONE) [...] REPEAT IN 5-15 MINUTES. 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 ans 00 DULoxetine Yes 1{capsu Q.5D Take 1 Me thodi (CYMBALTA) 5-03 le} capsule by st 60 MG 00:00: mouth 2 Hospita capsule 00 (two) l times a day. DULoxetine DULoxetine Yes MARIBELL TAKE ONE UT [...] SUPP 00:00[facility] [place] [facility] [place] [facility] 2005-0 Yes 1 Tab Oral Univers RINE 10 MG 1-27 TID ity of ORAL TAB 00:00: [place] 00 [facility] BISACODYL 2005-0 Yes 1 Univers 10 MG 1-27 Suppositor ity of RECTAL SUPP 00:00: [place] 00 QDAILRN [facility] CYCLOBENZAP Yes 1 Tab Oral Univers RINE 10 MG 1-27 TID ity of ORAL TAB 00:00: [place] [facility] HYDROCODONE Yes 1 Tab Oral Univers -ACETAMINOP 1-26 Q4HPRN ity of HEN 5-325 00:00: [place] MG ORAL TAB 00 [facility] DOCUSATE Yes 1 Cap Oral Uni vers SODIUM 100 1-26 BID ity of MG ORAL CAP 00:00: [place] [facility] HYDROCODONE Yes 1 Tab Oral Univers -ACETAMINOP 1-26 Q4HPRN ity of HEN 5-325 00:00: [place] MG ORAL TAB [facility] DOCUSATE Yes 1 Cap Oral Uni vers SODIUM 100 1-26 BID ity of MG ORAL CAP 00:00: [place] [facility] metoclopram metoclopram No metoclopra Leslee roxanne 10 [...] BY MOUTH BY MOUTH TABLETS BY Azucena castellanosicin TWICE A DAY TWICE A DAY MOUTH [...] e EVERY DAY promethazin promethazin No promethazi Lelsee e-DM 6.25 e-DM 6.25 ne-DM 6.25 Orthope [...] AT BEDTIME FOR INSOMNIA Losartan Losartan Yes 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 a ns Tablet Tablet acetaminoph acetaminoph No acetaminop Leslee en 300 [...] DAY FOR A TOTAL OF 6 DAYS Immunizations Ordered Filled Immunization Date Status Comments Sourc e Immunization Name Name DIGNA TRUONG 2021-09-02 Completed Methodis t MRNA VACCINATION 00:00:00 [facility] DIGNA PALOMOIDSharifa 2021-09-02 Completed Methodis t MRNA VACCINATION 00:00:00 [facility] PPD 2013-09-28 Completed [facility] 00:00:00 PPD 2012-10-14 Completed [facility] 00:00:00 Vital Signs Vital Name Observation Time Observation Value Comments Source Oxygen saturation 2021-05-09 95 /min [facility] Arterial blood 22:30:00 [facility] Pulse oximetry Branch Systolic blood 2021-05-09 121 mm[Hg] University of pressure 22:30:00 [facility] Diastolic blood 2021-05-09 61 mm[Hg] University o f pressure 22:30:00 [facility] Heart rate 2021-05-09 77 /min University 22:30:00 [facility] Body temperature 2021-05-09 36.44 Nataly University 22:30:00 [facility] Respiratory rate 2021-05-09 18 /min University of 22:30:00 [facility] Body height 2021-05-09 160 cm University 21:11:00 [facility] Body weight 2021-05-09 102.513 kg University 21:11:00 [facility] BMI 2021-05-09 40.03 kg/m2 University 21:11:00 [facility] Systolic blood 2022-04-03 117 mm[Hg] [facility] pressure 16:06:36 [facility] Diastolic blood 2022-04-03 65 mm[Hg] [facility] pressure 16:06:36 Hospital Heart rate 2022-04-03 84 /min [facility] 16:06:36 Hospital Body temperature 2022-04-03 37.33 Nataly [facility] 16:06:36 Hospital Respiratory rate 2022-04-03 18 /min [facility] 16:06:36 Hospital Oxygen saturation 2022-04-03 97 /min [facility] in Arterial blood 16:06:36 Hospital by Pulse oximetry Body height 2022-04-02 160 cm [facility] 11:02:00 Hospital Body weight 2022-04-02 101.152 kg [facility] 11:02:00 Hospital BMI 2022-04-02 39.50 kg/m2 [facility] 11:02:00 [facility] Weight 2020-12-19 239.5 [lb_av] [facility] 15:52:00 Body mass index 2020-12-19 42.43 kg/m2 [facility] (BMI) [Ratio] 15:52:00 Body temperature 2020-12-19 97.7 [degF] [facility] 15:52:00 Heart Rate 2020-12-19 121 /min [facility] 15:52:00 Systolic blood 2020-12-19 152 mm[Hg] Location: RUE; [facility] pressure 15:52:00 Position: Sitting Diastolic blood 2020-12-19 81 mm[Hg] Location: RUE; [facility] pressure 15:52:00 Position: Sitting Systolic blood 2020-09-21 128 mm[Hg] Location: RUE; [facility] pressure 13:39:00 Position: Sitting Diastolic blood 2020-09-21 80 mm[Hg] Location: RUE; [facility] pressure 13:39:00 Position: Sitting Weight 2020-09-21 234.2 [lb_av] [facility] 13:39:00 Body mass index 2020-09-21 41.49 kg/m2 [facility] (BMI) [Ratio] 13:39:00 Heart Rate 2020-09-21 103 /min Location: R [facility] 13:39:00 Carotid; Body temperature 2020-09-21 96.6 [degF] [facility] 13:39:00 BP Systolic 2019-03-30 120 mm[Hg] Location: RUE; [facility] 13:25:00 Position: Sitting BP Diastolic 2019-03-30 78 mm[Hg] Location: RUE; [facility] 13:25:00 Position: Sitting Height 2019-03-30 63 [in_us] [facility] 13:25:00 Weight 2019-03-30 219.25 [lb_av] [facility] 13:25:00 Body Mass Index 2019-03-30 38.84 kg/m2 [facility] Calculated 13:25:00 Heart Rate 2019-03-30 88 /min Location: R [facility] 13:25:00 Radial; BP Systolic 2018-11-23 125 mm[Hg] Location: RUE; [facility] 11:18:00 Position: Sitting BP Diastolic 2018-11-23 83 mm[Hg] Location: RUE; [facility] 11:18:00 Position: Sitting Height 2018-11-23 63 [in_us] [facility] 11:18:00 Weight 2018-11-23 228.125 [lb_av] [facility] 11:18:00 Body Mass Index 2018-11-23 40.41 kg/m2 [facility] Calculated 11:18:00 Heart Rate 2018-11-23 112 /min Location: R [facility] 11:18:00 Radial; BP Systolic 2018-03-03 133 mm[Hg] Location: RUE; [facility] 15:41:00 Position: Sitting BP Diastolic 2018-03-03 87 mm[Hg] Location: RUE; [facility] 15:41:00 Position: Sitting Height 2018-03-03 63 [in_us] [facility] 15:41:00 Weight 2018-03-03 224.4375 [lb_av] [facility] 15:41:00 Body Mass Index 2018-03-03 39.76 kg/m2 [facility] Calculated 15:41:00 Heart Rate 2018-03-03 101 /min Location: R [facility] 15:41:00 Radial; Procedures Procedure Date / Time Performing Clinician Source Performed XR LUMBAR SPINE 2 OR 3 VW 2022-08-29 18:28:01 [facility] XR LUMBAR SPINE 2 OR 3 VW 2022-04-22 19:20:00 [facility] HEMOGLOBIN 2022-04-03 09:43:00 Prabhakar Nuno spital SURGICAL PATHOLOGY 2022-04-02 18:08:00 [facility] REQUEST OR FL > 1 HOUR 2022-04-02 17:10:00 Moe, [facility] HC NERVE BLOCK ERECTOR 2022-04-02 16:49:[address] [facility] SPINAE INTRAOPERATIVE MONITORING 2022-04-02 16:03:41 Moe [facility] OR FL > 1 HOUR 2022-04-02 15:10:[facility] 2022-04-02 14:40:43 Tiarra Amos [facility]spital Ana ANESTHESIA INTUBATION 2022-04-02 13:17:00 [facility] Ana FUSION, SPINE, LUMBAR, 2022-04-02 13:07:00 [facility] XLIF ABO AND RH CONFIRMATION 2022-04-02 11:09:00 [facility] BY PROTOCOL URINE CULTURE 2022-03-21 15:58:00 Luz [facility] URINALYSIS SCREEN AND 2022-03-21 15:58:00 Catherine Escobar [facility] MICROSCOPY, WITH REFLEX TO CULTURE CBC WITH PLATELET AND 2022-03-21 15:44:00 Moe [facility] DIFFERENTIAL BASIC METABOLIC PANEL 2022-03-21 15:44:00 [facility] PROTHROMBIN TIME WITH INR 2022-03-21 15:44:00 [facility] PARTIAL THROMBOPLASTIN 2022-03-21 15:44:00 [facility] TIME (PTT) ESTIMATED GFR 2022-03-21 15:44:00 [facility] TYPE AND SCREEN 2022-03-21 15:44:00 [facility] HEPATIC FUNCTION PANEL 2022-03-21 15:44:00 [facility] HEMOGLOBIN A1C 2022-03-21 15:44:00 [facility] XR CERVICAL SPINE 2 OR 3 2022-02-25 18:29[facility] 2022-02-03 16:40:00 Moe [facility] REQUEST XR CERVICAL SPINE 1 VW 2022-02-03 15:33:00 Moe [facility] XR CERVICAL SPINE 1 2022-02-03 15:20:00 [facility] XR CERVICAL SPINE 1 2022-02-03 13:35:00 [facility] NE AN ELECTIVE 2022-02-03 12:39:00 Tiarra Amos H [facility]spital ENDOTRACHEAL AIRWAY Ana DISCECTOMY, CERVICAL, 2022-02-03 12:27:00 Moe [facility] Met [facility] WITH FUSION, ANTERIOR APPROACH CBC WITH PLATELET AND 2022-01-20 19:32:00 [facility] DIFFERENTIAL BASIC METABOLIC PANEL 2022-01-20 19:32:00 [facility] Met [facility] PROTHROMBIN TIME WITH INR 2022-01-20 19:32:00 [facility] PARTIAL THROMBOPLASTIN 2022-01-20 19:32:00 [facility] TIME (PTT) HEMOGLOBIN A1C 2022-01-20 19:32:00 [facility] 2022-01-20 19:32:00 [facility] ECG PRE/POST OP 2022-01-20 19:24:[address] [facility] [address] CERVICAL SPINE WO 2022-01-02 19:49:00 [facility] CONTRAST CT LUMBAR SPINE WO 2022-01-02 19:48:00 [facility] CONTRAST XR CERVICAL SPINE 2022-01-02 18:24:00 [facility] COMPLETE W FLEX EXT XR LUMBAR SPINE AP 2022-01-02 18:24:00 [facility] LATERAL FLEXION AND EXTENSION XR SPINE SCOLIOSIS 2-3 2022-01-02 18:24:00 [facility] VIEWS MRI SPINE EXTERNAL STUDY 2021-11-05 22:46:00 [facility] MRI SPINE EXTERNAL STUDY 2021-11-03 22:14:00 [facility] CONSENT/REFUSAL FOR 2021-05-09 05:01:00 Doctor Unassigned, Unive [facility] DIAGNOSIS AND TREATMENT [facility] [QL] CBC (INCLUDES 2020-12-19 00:00:00 [facility] DIFF/PLT) [QL] CMP W/EGFR 2020-12-19 00:00:00 [facility] [QL] C-REACTIVE PROTEIN 2020-12-19 00:00:00 [facility] [QL] SED RATE BY MODIFIED 2020-12-19 00:00:00 [facility] WESTERGREN [QL] QUANTIFERON(R)-TB 2019-12-07 00:00:00 [facility] [...] BY 2018-11-23 00:00:00 [facility] MODIFIED WESTERGREN Plan of Care Planned Activity Planned Date Details Comments Source Future Scheduled 2022-11-07 Hepatitis C screening [facility] Test 13:52:28 (procedure) [code = 279231359] Future Scheduled 2022-11-07 Screening for [facility] Test 13:52:28 malignant neoplasm of cervix (procedure) [code = 888301933] Future Scheduled 2022-11-07 BREAST CANCER [facility] Test 13:52:28 SCREENING [code = BREAST CANCER SCREENING] Future Scheduled 2022-11-07 COLONOSCOPY SCREENING [facility] Test 13:52:28 [code = COLONOSCOPY SCREENING] Future Scheduled 2022-11-07 SHINGLES VACCINES ([address] [facility] Test 13:52:28 of 2) [code = SHINGLES VACCINES (1 of 2)] Future Scheduled 2022-11-07 INFLUENZA VACCINE Method [facility] Test 13:52:28 [code = INFLUENZA VACCINE] Future Scheduled 2022-09-01 Hepatitis C screening [facility] Test 13:29:43 (procedure) [code = 954257343] Future Scheduled 2022-09-01 Screening for [facility] Test 13:29:43 malignant neoplasm of cervix (procedure) [code = 184849836] Future Scheduled 2022-09-01 BREAST CANCER [facility] Test 13:29:43 SCREENING [code = BREAST CANCER SCREENING] Future Scheduled 2022-09-01 COLONOSCOPY SCREENING [facility] Test 13:29:43 [code = COLONOSCOPY SCREENING] Future Scheduled 2022-09-01 SHINGLES VACCINES ([address] [facility] Test 13:29:43 of 2) [code = SHINGLES VACCINES (1 of 2)] Future Scheduled 2022-09-01 INFLUENZA VACCINE Method [facility] Test 13:29:43 [code = INFLUENZA VACCINE] Encounters Start End Encounter Admission Attending Care Care Encounter Source Date/Time Date/Time Type Type Clinicians Facility Department ID 2022-11-07 2022-11-07 Travel 1.2.840.1 [id number] Methodi 00:00:00 00:00:[id number] 3.430.2.7 0.2.7.3.698 Ho spita .3.454063 084.8 l .8 2022-11-07 2022-11-07 Transcribe Owen 1.2.840.1 [id number] Methodi 00:00:00 00:00:00 Orders Eric [id number] 3.430.2.7 Hospit a .3.863490 l .8 2022-08-29 2022-08-29 [facility] 1.2.840.1 [id number] Methodi 12:19:42 23:59:00 Encounter Fox [id number] 3.430.2.7 Hospit a .3.813558 l .8 2022-08-29 2022-08-29 [facility] Murphy Rosa 1.2.840.1 [id number] Methodi 12:19:42 23:59:00 Encounter Fox [id number] 3.430.2.7 Hospit a .3.238192 l .8 2022-08-29 2022-08-29 Office Murphy Rosa 1.2.840.1 [id number] Methodi 13:45:00 13:45:00 Visit Fox [id number] 3.430.2.7 Hospit a .3.047951 l .8 2022-08-29 2022-08-29 Office Murphy Rosa 1.2.840.1 [id number] Methodi 13:45:00 13:45:00 Visit Fox [id number] 3.430.2.7 Hospit a .3.356727 l .8 2022-08-29 2022-08-29 Travel 1.2.840.1 [id number] Methodi 00:00:00 00:00:[address] 3.430.2.7 0.2.7.3.698 Ho spita .3.598586 084.8 l .8 2022-08-29 2022-08-29 Travel 1.2.840.1 [id number] Methodi 00:00:00 00:00:[address] 3.430.2.7 0.2.7.3.698 Ho spita .3.682221 084.8 l .8 2022-08-26 2022-08-26 [facility] Murphy Rosa 1.2.840.1 [id number] Methodi 00:00:00 00:00:00 Only Fox 44424.1.[address] 3.430.2.7 Hospit a .3.533168 l .8 2022-08-26 2022-08-26 [facility] Murphy Rosa 1.2.840.1 [id number] Methodi 00:00:00 00:00:00 Only Fox 54377.1.[address] 3.430.2.7 Hospit a .3.417416 l .8 2022-07-22 2022-07-22 Outpatient FOG_Dieter_ AOSM AOSM 630 9955-20 Leslee 00:00:00 00:00:00 Oscar 120325 Ortho pe dic Sports Medicin e 2022-07-16 2022-07-16 Travel 1.2.840.1 1.2.596.587 2871 323832 Methodi 00:00:00 00:00:[address] 3.430.2.7 0.2.7.3.698 Ho spita .3.186367 084.8 l .8 2022-07-16 2022-07-16 Travel 1.2.840.1 1.2.694.309 0386 497494 Methodi 00:00:00 00:00:[address] 3.430.2.7 0.2.7.3.698 Ho spita .3.899497 084.8 l .8 2022-05-30 2022-05-30 Outpatient FOG_Dieter_ AOSM AOSM 630 9955-20 Leslee 00:00:00 00:00:00 Oscar 547168 Ortho pe dic Sports Medicin e 2022-04-22 2022-04-22 [facility] Murphy Rosa 1.2.840.1 [id number] 2 [id number] Methodi 14:00:00 23:59:00 Encounter Fox 56130.1.[address] 3.430.2.7 Hospit a .3.771025 l .8 2022-04-22 2022-04-22 [facility] Murphy Rosa 1.2.840.1 [id number] 2 [id number] Methodi 14:00:00 23:59:00 Encounter Fox 04889.1.[address] 3.430.2.7 Hospit a .3.221163 l .8 2022-04-22 2022-04-22 Office Murphy Rosa 1.2.840.1 [id number] 21 [id number] Methodi 14:45:00 15:15:20 Visit Fox 53318.1.[address] 3.430.2.7 Hospit a .3.009694 l .8 2022-04-22 2022-04-22 Office Murphy Rosa 1.2.840.1 [id number] 21 [id number] Methodi 14:45:00 15:15:20 Visit Fox [address]1030.1.[address] 3.430.2.7 Hospit a .3.012297 l .8 2022-04-22 2022-04-22 Travel 1.2.840.1 1.2.311.660 8278 803694 Methodi 00:00:00 00:00:[address] 3.430.2.7 0.2.7.3.698 Ho spita .3.684307 084.8 l .8 2022-04-22 2022-04-22 Murphy Kwan 1.2.840.1 [id number] 21 [id number] Methodi 00:00:00 00:00:00 Only Fox 67848.1.[address] 3.430.2.7 Hospit a .3.206180 l .8 2022-04-22 2022-04-22 Travel 1.2.840.1 1.2.250.688 5552 373178 Methodi 00:00:00 00:00:[address] 3.430.2.7 0.2.7.3.698 Ho spita .3.215078 084.8 l .8 2022-04-22 2022-04-22 Murphy Kwan 1.2.840.1 [id number] 23780082 Methodi 00:00:00 00:00:00 Only Fox 06745.1.[address] 3.430.2.7 Hospit a .3.559757 l .8 2022-04-14 2022-04-14 Outpatient FOG_Dieter_ AOSM AOSM 630 9955-20 Leslee 00:00:00 00:00:00 Chris_LO 754718 Ortho pe dic Sports Medicin e 2022-04-04 2022-04-04 Orders Lyman, 1.2.840.1 [id number] 2099 294369 Methodi 00:00:00 00:00:00 Only Dee Dee Sid 42164.1.[address] 3.430.2.7 Hospit a .3.870542 l .8 2022-04-04 2022-04-04 Orders Nura, 1.2.840.1 [id number] 2100 066536 Methodi 00:00:00 00:00:00 Only Dee Dee Sid 54461.1.[address] 3.430.2.7 Hospit a .3.482435 l .8 2022-04-02 2022-04-03 Hospital MoeMurphy 1.2.840.1 [id number] 2 [id number] Methodi 05:07:00 15:26:00 Encounter Fox 47371.1.[address] 3.430.2.7 Hospit a .3.053204 l .8 2022-04-02 2022-04-03 [facility] Murphy Rosa 1.2.840.1 [id number] 2 [id number] Methodi 05:07:00 15:26:00 Encounter Fox [address]80.1.[address] 3.430.2.7 Hospit a .3.201964 l .8 2022-04-03 2022-04-03 Orders Murphy Rosa 1.2.840.1 [id number] 21270588 Methodi 00:00:00 00:00:00 Only Fox 00792.1.[address] 3.430.2.7 Hospit a .3.857304 l .8 2022-04-03 2022-04-03 Outpatient STEPHANE Encinas [facility] [id number] 6-1 00:00:00 00:00:00 Drake [id number] 2022-04-03 2022-04-03 Drake CALDERÓN [place] - Ortho [id number] 1 Leslee 00:00:00 00:00:00 Kirsten Encinas - Or thope CO: 6565 FOG_Bracing dic Mariel _[facility] [place] [address] 2022-04-03 2022-04-03 Orders Murphy Rosa 1.2.840.1 [id number] 21 [id number] Methodi 00:00:00 00:00:00 Only Fox 13366.1.[address] 3.430.2.7 Hospit a .3.448429 l .8 2022-04-02 2022-04-02 Anesthesia David Nation 1.2.840.1 1 25530357 3806802616 Methodi 08:07:00 13:28:00 Event Catherine Escobar 44734.1.[address] 3.430.2.7 Hospit a .3.852982 l .8 2022-04-02 2022-04-02 Anesthesia David Nation 1.2.840.1 1 56202909 [id number] Methodi 08:07:00 13:28:00 Event Catherine Escobar 35401.1.[address] 3.430.2.7 Hospit a .3.486199 l .8 2022-04-02 2022-04-02 Surgery Murphy Rosa 1.2.840.1 [id number] 21 [id number] Methodi 08:00:00 13:15:[address] 3.430.2.7 Hospit a .3.166664 l .8 2022-04-02 2022-04-02 Surgery Murphy Rosa 1.2.840.1 860659508 21 85979005 Methodi 08:00:00 13:15:[address] 3.430.2.7 Hospit a .3.549600 l .8 2022-04-02 2022-04-02 Orders Murphy Rosa 1.2.840.1 769453339 21 [id number] Methodi 00:00:00 00:00:00 Only Fox 55473.1.[address] 3.430.2.7 Hospit a .3.687888 l .8 2022-04-02 2022-04-02 Travel 1.2.840.1 1.2.091.348 4631 086720 Methodi 00:00:00 00:00:[address] 3.430.2.7 0.2.7.3.698 Ho spita .3.818415 084.8 l .8 2022-04-02 2022-04-02 Orders Murphy Rosa 1.2.840.1 [id number] 21 [id number] Methodi 00:00:00 00:00:00 Only Fox 76864.1.[address] 3.430.2.7 Hospit a .3.490397 l .8 2022-04-02 2022-04-02 Travel 1.2.840.1 1.2.758.288 7850 755225 Methodi 00:00:00 00:00:[address] 3.430.2.7 0.2.7.3.698 Ho spita .3.766080 084.8 l .8 2022-03-31 2022-03-31 Outpatient FOG_Dieter_ AOSM AOSM 630 9955-20 Leslee 05:46:00 05:46:00 Chris_LO 543520 Ortho pe dic Sports Medicin e 2022-03-21 2022-03-21 Pre-Admiss Murphy Rosa 1.2.840.1 [id number] 3799886977 Methodi 09:30:00 10:30:00 ion Fox 06407.1.[address] Testing 3.430.2.7 Hospit a .3.254406 l .8 2022-03-21 2022-03-21 Pre-Admiss Murphy Rosa 1.2.840.1 382422187 6076345818 Methodi 09:30:00 10:30:00 ion Fox 18047.1.[address] Testing 3.430.2.7 Hospit a .3.991316 l .8 2022-03-21 2022-03-21 Travel 1.2.840.1 1.2.739.397 4651 670403 Methodi 00:00:00 00:00:[address] 3.430.2.7 0.2.7.3.698 Ho spita .3.728147 084.8 l .8 2022-03-21 2022-03-21 Travel 1.2.840.1 1.2.166.310 8621 220171 Methodi 00:00:00 00:00:[address] 3.430.2.7 0.2.7.3.698 Ho spita .3.378105 084.8 l .8 2022-03-07 2022-03-07 Documentat Provider, 1.2.840.1 985339959 2 [id number] Methodi 00:00:00 00:00:00 ion Unknown 19164.1.[address] 3.430.2.7 Hospit a .3.540477 l .8 2022-03-07 2022-03-07 Documentat Provider, 1.2.840.1 351007828 2 [id number] Methodi 00:00:00 00:00:00 ion Unknown 51986.1.[address] 3.430.2.7 Hospit a .3.477054 l .8 2022-02-25 2022-02-25 [facility] Murphy Rosa 1.2.840.1 817634388 2 [id number] Methodi 13:04:36 23:59:00 Encounter Fox 90040.1.[address] 3.430.2.7 Hospit a .3.190950 l .8 2022-02-25 2022-02-25 [facility] Murphy Rosa 1.2.840.1 554868299 2 [id number] Methodi 13:04:36 23:59:00 Encounter Fox 00016.1.[address] 3.430.2.7 Hospit a .3.811699 l .8 2022-02-25 2022-02-25 Office Murphy Rosa 1.2.840.1 256609182 12698383 Methodi 14:30:00 15:02:07 Visit Fox 78614.1.[address] 3.430.2.7 Hospit a .3.358282 l .8 2022-02-25 2022-02-25 Office Murphy Rosa 1.2.840.1 915820607 03041837 Methodi 14:30:00 15:02:07 Visit Fox 59038.1.[address] 3.430.2.7 Hospit a .3.712590 l .8 2022-02-25 2022-02-25 Travel 1.2.840.1 1.2.306.115 1767 394115 Methodi 00:00:00 00:00:[address] 3.430.2.7 0.2.7.3.698 Ho spita .3.586865 084.8 l .8 2022-02-25 2022-02-25 Orders Moe, Murphy 1.2.840.1 943586151 58471093 Methodi 00:00:00 00:00:00 Only Fox 31862.1.[address] 3.430.2.7 Hospit a .3.991912 l .8 2022-02-25 2022-02-25 Travel 1.2.840.1 1.2.825.142 0266 677030 Methodi 00:00:00 00:00:[address] 3.430.2.7 0.2.7.3.698 Ho spita .3.201168 084.8 l .8 2022-02-25 2022-02-25 Orders Moe Murphy 1.2.840.1 [id number] 04488836 Methodi 00:00:00 00:00:00 Only Fox 88791.1.[address] 3.430.2.7 Hospit a .3.440939 l .8 2022-02-18 2022-02-18 Travel 1.2.840.1 1.2.211.546 8039 294873 Methodi 00:00:00 00:00:[address] 3.430.2.7 0.2.7.3.698 Ho spita .3.260284 084.8 l .8 2022-02-18 2022-02-18 Travel 1.2.840.1 1.2.326.005 2309 935370 Methodi 00:00:00 00:00:[address] 3.430.2.7 0.2.7.3.698 Ho spita .3.464562 084.8 l .8 2022-02-11 2022-02-11 Outpatient FOG_Dieter_ AOSM AOSM 630 9955-20 Leslee 04:01:00 04:01:00 Chris_LO 393809 Ortho pe dic Sports Medicin e 2022-02-05 2022-02-05 Travel 1.2.840.1 1.2.211.894 4581 114920 Methodi 00:00:00 00:00:[address] 3.430.2.7 0.2.7.3.698 Ho spita .3.910802 084.8 l .8 2022-02-05 2022-02-05 Travel 1.2.840.1 1.2.949.287 3469 242760 Methodi 00:00:00 00:00:[address] 3.430.2.7 0.2.7.3.698 Ho spita .3.474226 084.8 l .8 2022-02-03 2022-02-04 [facility] Murphy Rosa 1.2.840.1 875834087 2 [id number] Methodi 05:12:00 16:10:00 Hyun Braxton 39619.1.[address] 3.430.2.7 Hospit a .3.076421 l .8 2022-02-03 2022-02-04 Hospital Murphy Rosa 1.2.840.1 540678165 2 [id number] Methodi 05:12:00 16:10:00 Encounter Fox [address]4616.1.[address] 3.430.2.7 Hospit a .3.179645 l .8 2022-02-04 2022-02-04 [facility] [place] - Ortho [id number] 4 Leslee 00:00:00 00:00:00 DieterKirsten - Or thope CO: 6565 FOG_Bracing dic Martin _[facility] [address] , Ph. 2022-02-04 2022-02-04 Outpatient STEPHANE Encinas [facility] [id number] a-e 00:00:00 00:00:00 Drake [id number] 2022-02-03 2022-02-03 Surgery Murphy Rosa 1.2.840.1 [id number] 21 [id number] Methodi 07:30:00 12:05:[address] 3.430.2.7 Hospit a .3.324941 l .8 2022-02-03 2022-02-03 Surgery Murphy Rosa 1.2.840.1 534722051 21 [id number] Methodi 07:30:00 12:05:[address] 3.430.2.7 Hospit a .3.290410 l .8 2022-02-03 2022-02-03 Anesthesia Donald Bell 1.2.840 .1 521639157 9672243339 Methodi 07:27:00 11:17:00 Event Bernice Young 24811.1.[address] 3.430.2.7 Hospit a .3.960267 l .8 2022-02-03 2022-02-03 Anesthesia Donald Bell 1.2.840 .1 482392928 [id number] Methodi 07:27:00 11:17:00 Event Bernice Young 62495.1.[address] 3.430.2.7 Hospit a .3.893992 l .8 2022-02-03 2022-02-03 Travel 1.2.840.1 1.2.826.597 5092 275746 Methodi 00:00:00 00:00:[address] 3.430.2.7 0.2.7.3.698 Ho spita .3.244633 084.8 l .8 2022-02-03 2022-02-03 Travel 1.2.840.1 1.2.189.738 5811 332780 Methodi 00:00:00 00:00:[address] 3.430.2.7 0.2.7.3.698 Ho spita .3.407615 084.8 l .8 2022-01-20 2022-01-20 Pre-Admiss Murphy Rosa 1.2.840.1 136201609 1121282543 Methodi 13:10:00 14:10:00 ion Fox 59278.1.[address] Testing 3.430.2.7 Hospit a .3.376037 l .8 2022-01-20 2022-01-20 Pre-Admiss Murphy Rosa 1.2.840.1 485461519 9615451663 Methodi 13:10:00 14:10:00 ion Fox 08055.1.[address] Testing 3.430.2.7 Hospit a .3.065903 l .8 2022-01-20 2022-01-20 Travel 1.2.840.1 1.2.249.204 4230 177613 Methodi 00:00:00 00:00:[address] 3.430.2.7 0.2.7.3.698 Ho spita .3.547972 084.8 l .8 2022-01-20 2022-01-20 Travel 1.2.840.1 1.2.260.416 6607 713496 Methodi 00:00:00 00:00:[address] 3.430.2.7 0.2.7.3.698 Ho spita .3.159596 084.8 l .8 2022-01-02 [facility] 331552748 2 521341592 Methodi 13:30:16 23:59:00 Encounter Fox 71853.1.[address] 3.430.2.7 Hospit a .3.359615 l .8 2022-01-02 2022-01-02 [facility] 1.2.840.1 609960362 2 541979978 Methodi 13:30:16 23:59:00 Encounter Fox 40570.1.[address] 3.430.2.7 Hospit a .3.937686 l .8 2022-01-02 2022-01-02 [facility] Murphy Rosa 1.2.840.1 034985702 2 762717202 Methodi 13:30:00 13:30:00 Encounter Fox 84491.1.[address] 3.430.2.7 Hospit a .3.860450 l .8 2022-01-02 2022-01-02 [facility] Murphy Rosa 1.2.840.1 476568921 2 359831266 Methodi 13:30:00 13:30:00 Encounter Fox 80042.1.[address] 3.430.2.7 Hospit a .3.345398 l .8 2022-01-02 2022-01-02 [facility] 1.2.840.1 174016963 2 154838064 Methodi 12:30:00 13:29:00 Encounter Fox 40630.1.[address] 3.430.2.7 Hospit a .3.329402 l .8 2022-01-02 2022-01-02 [facility] 1.2.840.1 264644434 2 [id number] Methodi 12:30:00 13:29:00 Encounter Fox [address]195.1.[address] 3.430.2.7 Hospit a .3.123931 l .8 2022-01-02 2022-01-02 [facility] Murphy Rosa 1.2.840.1 163369830 2 [id number] Methodi 12:15:00 12:29:00 Encounter Fox 37578.1.[address] 3.430.2.7 Hospit a .3.402889 l .8 2022-01-02 2022-01-02 [facility] Murphy Rosa 1.2.840.1 220634911 2 010094114 Methodi 12:15:00 12:29:00 Encounter Fox 04299.1.[address] 3.430.2.7 Hospit a .3.121147 l .8 2022-01-02 2022-01-02 [facility] Murphy Rosa 1.2.840.1 210439211 2 389380267 Methodi 12:00:00 12:14:00 Encounter Fox [address]6053.1.[address] 3.430.2.7 Hospit a .3.765578 l .8 2022-01-02 2022-01-02 [facility] Murphy Rosa 1.2.840.1 716544555 2 [id number] Methodi 12:00:00 12:14:00 Encounter Fox 34485.1.[address] 3.430.2.7 Hospit a .3.484371 l .8 2022-01-02 2022-01-02 Travel 1.2.840.1 1.2.984.186 1096 857192 Methodi 00:00:00 00:00:[address] 3.430.2.7 0.2.7.3.698 Ho spita .3.092030 084.8 l .8 2022-01-02 2022-01-02 Travel 1.2.840.1 1.2.509.537 2075 563244 Methodi 00:00:00 00:00:[address] 3.430.2.7 0.2.7.3.698 Ho spita .3.635642 084.8 l .8 2021-12-23 2021-12-23 Travel 1.2.840.1 1.2.928.192 1691 365803 Methodi 00:00:00 00:00:[address] 3.430.2.7 0.2.7.3.698 Ho spita .3.825821 084.8 l .8 2021-12-23 2021-12-23 Travel 1.2.840.1 1.2.679.178 1756 594110 Methodi 00:00:00 00:00:[address] 3.430.2.7 0.2.7.3.698 Ho spita .3.254516 084.8 l .8 2021-12-20 2021-12-20 [facility] 1.2.840.1 993049926 2 333359789 Methodi 09:56:52 23:59:00 Encounter Fox 44708.1.[address] 3.430.2.7 Hospit a .3.387130 l .8 2021-12-20 2021-12-20 [facility] 1.2.840.1 520489092 2 [id number] Methodi 09:56:52 23:59:00 Encounter Fox [address]8038.1.[address] 3.430.2.7 Hospit a .3.154066 l .8 2021-12-20 2021-12-20 [facility] 1.2.840.1 [id number] 21 [id number] Methodi 10:00:00 11:00:44 Visit Fox 26687.1.[address] 3.430.2.7 Hospit a .3.775658 l .8 2021-12-20 2021-12-20 [facility] 1.2.840.1 [id number] 21 27682735 Methodi 10:00:00 11:00:44 Visit Fox 16172.1.[address] 3.430.2.7 Hospit a .3.505025 l .8 2021-12-20 2021-12-20 [facility] Murphy Rosa 1.2.840.1 842279119 2 [id number] Methodi 09:54:24 09:55:00 Encounter Fox [address]015.1.[address] 3.430.2.7 Hospit a .3.674068 l .8 2021-12-20 2021-12-20 [facility] Murphy Rosa 1.2.840.1 [id number] 2 [id number] Methodi 09:54:24 09:55:00 Encounter Fox [address]94.1.[address] 3.430.2.7 Hospit a .3.547701 l .8 2021-12-20 2021-12-20 Travel 1.2.840.1 1.2.045.346 1498 473435 Methodi 00:00:00 00:00:[address] 3.430.2.7 0.2.7.3.698 Ho spita .3.764412 084.8 l .8 2021-12-20 2021-12-20 Travel 1.2.840.1 1.2.903.134 5021 959677 Methodi 00:00:00 00:00:[address] 3.430.2.7 0.2.7.3.698 Ho spita .3.183237 084.8 l .8 2021-12-04 2021-12-04 Travel 1.2.840.1 1.2.615.042 3907 945930 Methodi 00:00:00 00:00:[address] 3.430.2.7 0.2.7.3.698 Ho spita .3.975649 084.8 l .8 2021-12-04 2021-12-04 Travel 1.2.840.1 1.2.649.151 1489 234850 Methodi 00:00:00 00:00:[address] 3.430.2.7 0.2.7.3.698 Ho spita .3.531604 084.8 l .8 2021-05-09 2021-05-09 Outpatient R SLOAN [facility] [id number] Univers 15:30:00 15:30:00 ELVIA ity of [facility] 2021-05-09 2021-05-09 Nurse Therapy, Adc Covid Infusion [facility] 1.2.840.114 [id number] Univers 14:24:43 15:24:43 Visit Elvia Weinberg 350.1.13.10 [id number] [address] 2021-05-09 2021-05-09 Orders Doctor MOISÉS 1.2.840.114 [id number] Univers 00:00:00 00:00:00 Only Unassigned, JUVENCIO 350.1.13.10 ity of [facility] 4.2.7.2.686 Erik as [id number] [place] [address] Branch 2020-12-19 2020-12-19 AppointTOSHA Caballero Rheumatolog 716 [id number] [place] 15:30:00 15:30:00 t; MARIBELL COREA y Phy sici JAMMIE, M.D. ans M.D. 2020-09-21 2020-09-21 AppointTOSHA Caballero Rheumatolog 714 [id number] [place] 13:30:00 13:30:00 t; MARIBELL COREA y Phy sici JAMMIE, M.D. ans M.D. 2020-06-27 2020-06-27 AppointTOSHA Caballero Rheumatolog [id number] [id number] [place] 15:00:00 15:00:00 t; MARIBELL COREA y Phy sici JAMMIE, M.D. ans M.D. 2019-12-07 2019-12-07 TOSHA Davis Rheumatolog 591 [id number] [place] 15:00:00 15:00:00 t; MARIBELL COREA y Phy sici JAMMIE, M.D. ans M.D. 2019-08-08 2019-08-08 Maria Isabel COREA [facility] Rheumatolog 551 [id number] [place] 13:30:00 13:30:00 t; MARIBELL COREA y Phy sici JAMMIE, M.D. ans M.D. 2019 2019-05-27 Outside nullFlavo MNA [id number] Memoria 19:28:42 04:59:59 Medical r Neurology 01 l Records Yung [place] 2019 2019-05-27 Outside nullFlavo MNA [id number] Memoria 19:28:42 04:59:59 Medical r Neurology 01 l Records [place] 2019 2019-05-26 Outpatient MHMISCHER MHMISCHER [id number] 14:28:42 23:59:59 01 2019-05-20 2019-05-21 Outpatient nullFlavo MNA [id number] Memoria 20:45:00 04:59:59 r Neurology 01 l [place] 2019-05-20 2019-05-21 Outpatient nullFlavo MNA [id number] Memoria 20:45:00 04:59:59 r Neurology 01 l [place] 2019-05-20 2019-05-20 Outpatient Alyssa, MHMISCHER MHMISCHER [id number] 15:45:00 23:59:59 Ashish Noa Phillips 2019-05-20 2019-05-20 Outpatient MHIE MHIE [id number] Memoria 15:45:00 15:45:00 01 merry [place] 2019-03-30 2019-03-30 AppointTOSHA Caballero Rheumatolog 512 [id number] [place] 13:30:00 13:30:00 t; MARIBELL COREA y Phy sici JAMMIE, M.D. ans M.D. 2018-11-23 2018-11-23 AppointTOSHA Caballero Rheumatolog [id number] [place] 10:30:00 10:30:00 t; MARIBELL COREA y Phy sici JAMMIE, M.D. ans M.D. 2018-09-02 2018-09-04 Outside nullFlavo MNA [id number] Memoria 22:39:00 05:59:59 Medical r Neurology 00 l Records [place] 2018-09-02 2018-09-04 Outside nullFlavo MNA [id number] Memoria 22:39:00 05:59:59 Medical r Neurology 00 l Records Yung Menonann 2018-09-02 2018-09-03 Outpatient MHMISCHER MHMISCHER [id number] 16:39:00 23:59:59 00 2018-07-07 2018-07-07 Day nullFlavo [facility] [id number] Memoria 13:00:00 13:00:00 Surgery r Ramon 00 l [facility] 2018-07-07 2018-07-07 Day nullFlavo [facility] [id number] Memoria 13:00:00 13:00:00 Surgery r [place] 00 l [facility] 2018-07-07 2018-07-07 Outpatient MARCELINA Decker MHSE [id number] 08:00:00 08:00:00 Lamberto 00 Matt 2018-06-25 2018-06-26 Outpatient nullFlavo MNA [id number] Memoria 20:45:00 04:59:59 r Neurology 00 l [place] 2018-06-25 2018-06-26 Outpatient nullFlavo MNA [id number] Memoria 20:45:00 04:59:59 r Neurology 00 l [place] 2018-06-25 2018-06-25 Outpatient Alyssa, ALEXANDREMISCHER MHMISCHER [id number] 15:45:00 23:59:59 Ashish 00 Alan 2018-06-25 2018-06-25 Outpatient MHIE MHIE [id number] Memoria 15:45:00 15:45:00 00 l Ramon 2018-03-03 2018-03-03 AppointTOSHA Caballero Rheumatolog [id number] [place] 15:30:00 15:30:00 t; MARIBELL COREA y Phy sici JAMMIE, M.D. ans M.D. 2017-10-14 2017-10-14 TOSHA Davis UTP [id number] [place] 14:30:00 14:30:00 t; MARIBELL COREA Phy sici JAMMIE, M.D. ans M.D. 2017-06-24 2017-06-24 TOSHA Davis UTP [id number] [place] 14:00:00 14:00:00 t; MARIBELL COREA Phy sici JAMMIE, M.D. ans M.D. 2016-12-23 2016-12-23 [facility] TOSHA HOGAN UTP [id number] [place] 10:00:00 10:00:00 t; NIKITA HOGAN M.D. P Tobi Ruiz 2016-12-03 2016-12-03 [facility] TOSHA COREA UTP [id number] [place] 15:30:00 15:30:00 t; MARIBELL COREA Phy sici JAMMIE, M.D. ans M.D. 2016-11-28 2016-11-29 Outpt Diag nullFlavo [facility] [id number] Memoria 20:55:00 04:59:00 Services r Outpatient 01 l Imaging - [facility] 2016-11-28 2016-11-29 [place] [id number] Memoria 20:55:00 04:59:00 Services r Outpatient 01 l Imaging - [facility] 2016-11-28 2016-11-28 Outpatient Nikita Hogan 35 [id number] 15:55:00 23:59:00 Dun[place] 01 2016-11-24 2016-11-24 [facility] UTP [id number] [place] 11:00:00 11:00:00 t; NIKITA HOGAN M.D. P william SHELTON M.D. ans 2016-08-05 2016-08-05 [facility] TOSHA COREA UTP [id number] [place] 10:00:00 10:00:00 t; MARIBELL COREA Phy sici JAMMIE, M.D. ans M.D. 2016-03-18 2016-03-18 [facility] TOSHA COREA UTP [id number] [place] 10:00:00 10:00:00 t; MARIBELL COREA Phy sici JAMMIE, M.D. ans M.D. 2014-09-25 2014-09-[place] [id number] Memoria 18:54:00 05:59:00 Services r Outpatient 00 l Imaging [facility] 2014-09-25 2014-09-26 Outpt Diag nullFlavo [facility] [id number] Memoria 18:54:00 05:59:00 Services r Outpatient 00 l Imaging Ramon Jeff 2014-09-25 2014-09-25 Outpatient Nikita Hogan [id number]. [id number] 12:54:00 23:59:00 [place] [id number]. [id number] 01 Results Test Description Test Time Test Comments Results Result Comments Source Surgical pathology request 2022-04-04 15:29:31 Test Item Value Reference Range Interpretation Comme nts Case number (test code = 0875985) [id number] Surgical pathology report (test code = See link below for PDF Lab R eport 2255) Result status (test code = 8264192) This is Final Report [facility] [id number] [facility] [id number] 15:29:31 Test Item Value Reference Range Interpretation Comments Case number (test code = [id number]) Surgical pathology See link below for report (test code = PDF Lab Report 2255) Result status (test code This is Final Report = [id number]) for [id number] [facility] [id number] 17:57:00 Test Item Value Reference Range Interpretation Comments Urine culture (test SEE COMMENT Bacteriu magali screen code = 9435256) negative. [facility] [id number] 17:57:00 Test Item Value Reference Range Interpretation Comments Urine culture (test SEE COMMENT Bacteriu magali screen code = 2234389) negative. [facility] [id number] 20:29:06 Test Item Value Reference Range Interpretation Comments Ventricular rate (test 64 code = 253) Atrial rate (test code = 64 255) NE interval (test code = 174 266) QRSD [...] Lopes MD ([id number]) on 01/21/2022 3:29:03 PM [facility] Pre/Post [id number] 20:29:06 Test Item Value Reference Range Interpretation Comments Ventricular rate (test 64 code = 253) Atrial rate (test code = 64 255) NE interval (test code = 174 266) QRSD [...] Lopes MD (6494) on 01/21/2022 3:29:03 PM [facility][] CMP [id number] 16:46:00 Test Item Value Reference Range Interpretation [...] NON-AFR. 92 {ML/MIN/1.7} See_Comment N [Automated message] GEORGIAN (test The system ich code = eGFR generated this result NON-AFR. transmitted ref erence GEORGIAN) range: > OR = 6 0. The reference range was not used to int erpret this result as normal/abnormal . eGFR 107 {ML/MIN/1.7} See_Comment N [Automated message] GEORGIAN (test The system ich code = eGFR [...] mg/dl 0.2-1.2 N Normal (test code = 32201-8) ALKALINE 58 u/l 37-153 N PHOSPHATASE (test code = ALKALINE PHOSPHATASE) AST; Normal (test 22 u/l 10-35 N code = 1916-6) ALT; Normal (test 22 u/l 6-29 N code = 1742-6) [facility][QL] SED RATE BY MODIFIED [id number] 16:46:00 Test Item Value Reference Range Interpretation Comments SED RATE BY MODIFIED 2 mm/h See_Comment N [Autom ated message] The [employer]STER[employer] (test code = syst em which generated SED RATE BY MODIFIED this re sult transmitted WESTERGREN) reference range : < OR = 30. The referen ce range was not used to interpret this result as normal/abnormal . [facility][QL] CBC (INCLUDES DIFF/PLT)2020-12-19 16:46:00 Test Item Value Reference Range Interpretation Comments WHITE BLOOD CELL COUNT 5.6 {Thousand/u} 3.8-10.8 N (test code = WHITE BLOOD CELL COUNT) RED BLOOD CELL COUNT (test 4.18 {Million/uL} 3.80-5.10 N code = RED BLOOD CELL COUNT) HEMOGLOBIN; Normal (test 12.7 g/dl 11.7-15.5 N code = 74888-0) HEMATOCRIT; Normal (test 38.0 % 35.0-45.0 N code = 4544-3) MCV; Normal (test code = 90.9 fL 80.0-100.0 N 787-2) MCHC; Normal (test code = 33.4 g/dl 32.0-36.0 N 27601-5) RDW; Normal (test code = 13.4 % 11.0-15.0 N 788-0) PLATELET COUNT; Normal 302 {Thousand/u} 140-400 N (test code = 777-3) MPV; Normal (test code = 10.3 fL 7.5-12.5 N 32638-1) ABSOLUTE NEUTROPHILS (test 1411 {cells/uL} 0243-9694 code = ABSOLUTE NEUTROPHILS) ABSOLUTE LYMPHOCYTES (test [...] Normal (test 14.6 % N code = 30411-9) EOSINOPHILS; Normal (test 2.5 % N code = 38957-2) BASOPHILS; Normal (test 1.1 % N code = 02339-0) [facility][QL] C-REACTIVE [id number] 16:46:00 Test Item Value Reference Range Interpretation Comments C-REACTIVE PROTEIN (test code = 1.0 mg/L <8.0 N C-REACTIVE PROTEIN) [facility][QL] CMP [id number] 16:15:00 Test Item Value Reference Range Interpretation [...] 88 {ML/MIN/1.7} > OR = 60 N GEORGIAN (test code = eGFR NON-AFR. GEORGIAN) eGFR 102 {ML/MIN/1.7} > OR = 60 N GEORGIAN (test code = eGFR ) BUN/CREATININE NOT [...] mg/dl 0.2-1.2 N Normal (test code = 88909-8) ALKALINE 71 u/l 37-153 N PHOSPHATASE (test code = ALKALINE PHOSPHATASE) AST; Normal (test 24 u/l 10-35 N code = 1916-6) ALT; Normal (test 22 u/l 6-29 N code = 1742-6) [facility][QL] SED RATE BY MODIFIED [id number] 16:15:00 Test Item Value Reference Range Interpretation [...] (test 12.6 g/dl 11.7-15.5 N code = 52160-0) HEMATOCRIT; Normal (test 39.0 % 35.0-45.0 N code = 4544-3) MCV; Normal (test code = 91.5 fL 80.0-100.0 N 787-2) MCHC; Normal (test code = 32.3 g/dl 32.0-36.0 N 74564-7) RDW; Normal (test code = 12.8 % 11.0-15.0 N 788-0) PLATELET COUNT; Normal 287 {Thousand/u} 140-400 N (test code = 777-3) MPV; Normal (test code = 11.7 fL 7.5-12.5 N 51923-5) ABSOLUTE NEUTROPHILS (test 2142 {cells/uL} 4334-8724 N code = ABSOLUTE NEUTROPHILS) ABSOLUTE LYMPHOCYTES [...] Normal (test 14.4 % N code = 71508-4) EOSINOPHILS; Normal (test 8.6 % N code = 17725-1) BASOPHILS; Normal (test 1.6 % N code = 55959-0) [facility][QL] C-REACTIVE [id number] 16:15:00 Test Item Value Reference Range Interpretation Comments C-REACTIVE PROTEIN (test code = 1.5 mg/L <8.0 N C-REACTIVE PROTEIN) [facility][Q] QUANTIFERON( R)-TB GOLD PLUS, 1 [id number] 16:15:00 Test Item Value Reference Range Interpretation [...] For additional info rmation, please refer [email or web address] [email or web address]/f [email or web address]/RUF465(Th is link is laverne shearer provided for informational/e ducational purposes only.) [facility]] CMP [id number] 15:22:00 Test Item Value Reference Range Interpretation [...] 96 {ML/MIN/1.7} > OR = 60 N GEORGIAN (test code = eGFR NON-) eGFR 111 {ML/MIN/1.7} > OR = 60 N GEORGIAN (test code = eGFR ) BUN/CREATININE NOT APPLICABLE 622 RATIO (test code = BUN/CREATININE RATIO) SODIUM [...] mg/dl 0.2-1.2 N Normal (test code = 72594-4) ALKALINE 72 u/l 33-130 N PHSPHATASE (test code = ALKALINE PHSPHATASE) AST; Normal (test 18 u/l 10-35 N code = 1916-6) ALT; Normal (test 25 u/l 6-29 N code = 1742-6) [facility]] SED RATE BY MODIFIED [id number] 15:22:00 Test Item Value Reference Range Interpretation Comments SED RATE BY MODIFIED WESTERGREN (test 2 mm/h < OR = 20 N code = SED RATE BY MODIFIED WESTERGREN) [facility]] CBC (INCLUDES DIFF/PLT)2019-08-08 15:22:00 Test Item Value Reference Range Interpretation Comments WHITE BLOOD CELL COUNT 6.3 {Thousand/u} 3.8-10.8 N (test code = WHITE BLOOD CELL COUNT) RED BLOOD CELL COUNT (test 4.37 {Million/uL} 3.80-5.10 N code = RED BLOOD CELL COUNT) HEMAGLOBIN; Normal (test 12.7 g/dl 11.7-15.5 N code = 10555-8) HEMATOCRIT; Normal (test 39.1 % 35.0-45.0 N code = 4544-3) MCV; Normal (test code = 89.5 fL 80.0-100.0 N 787-2) MCHC; Normal (test code = 32.5 g/dl 32.0-36.0 N 36033-8) RDW; Normal (test code = 12.6 % 11.0-15.0 N 788-0) PLATELET COUNT; Normal 318 {Thousand/u} 140-400 N (test code = 777-3) MPV; Normal (test code = 10.1 fL 7.5-12.5 N 45987-5) ABSOLUTE NEUTROPHILS (test 2652 {cells/uL} 5524-6840 N code = ABSOLUTE NEUTROPHILS) ABSOLUTE LYMPHOCYTES [...] Normal (test 12.3 % N code = 91171-0) EOSINOPHILS; Normal (test 1.9 % N code = 12597-0) BASOPHILS; Normal (test 1.3 % N code = 51290-4) [facility]] C-REACTIVE [id number] 15:22:00 Test Item Value Reference Range Interpretation Comments C-REACTIVE PROTEIN (test code = 1.5 mg/L <8.0 N C-REACTIVE PROTEIN) [facility]] CMP [id number] 13:58:00 Test Item Value Reference Range Interpretation Comments GLUCOSE; Normal 76 mg/dl 65-139 N Non-fasting (test code = reference inter ananya 1547-9) UREA NITROGEN (BUN) 13 mg/dl 7-25 N (test code = UREA NITROGEN (BUN)) CREATININE (test 0.70 mg/dl 0.50-1.10 N code = CREATININE) eGFR NON- 102 {ML/MIN/1.7} > OR = 60 N GEORGIAN (test code = eGFR NON-) eGFR 118 {ML/MIN/1.7} > OR = 60 N GEORGIAN (test code = eGFR ) BUN/CREATININE NOT [...] mg/dl 0.2-1.2 N Normal (test code = 63774-0) ALKALINE PHSPHATASE 83 u/l 33-115 N (test code = ALKALINE PHSPHATASE) AST; Normal (test 16 u/l 10-35 N code = 1916-6) ALT; Normal (test 15 u/l 6-29 N code = 1742-6) [facility]] SED RATE BY MODIFIED [id number] 13:58:00 Test Item Value Reference Range Interpretation Comments SED RATE BY MODIFIED WESTERGREN (test 2 mm/h < OR = 20 N code = SED RATE BY MODIFIED WESTERGREN) [facility]] CBC (INCLUDES DIFF/PLT)2019-03-30 13:58:00 Test Item Value Reference Range Interpretation Comments WHITE BLOOD CELL COUNT 7.5 {Thousand/u} 3.8-10.8 N (test code = WHITE BLOOD CELL COUNT) RED BLOOD CELL COUNT (test 4.59 {Million/uL} 3.80-5.10 N code = RED BLOOD CELL COUNT) HEMAGLOBIN; Normal (test 13.1 g/dl 11.7-15.5 N code = 14603-3) HEMATOCRIT; Normal (test 40.1 % 35.0-45.0 N code = 4544-3) MCV; Normal (test code = 87.4 fL 80.0-100.0 N 787-2) MCHC; Normal (test code = 32.7 g/dl 32.0-36.0 N 73551-1) RDW; Normal (test code = 12.6 % 11.0-15.0 N 788-0) PLATELET COUNT; Normal 281 {Thousand/u} 140-400 N (test code = 777-3) MPV; Normal (test code = 10.6 fL 7.5-12.5 N 56008-2) ABSOLUTE NEUTROPHILS (test 2888 {cells/uL} 3201-9099 N code = ABSOLUTE NEUTROPHILS) ABSOLUTE LYMPHOCYTES [...] Normal (test 11.7 % N code = 25413-1) EOSINOPHILS; Normal (test 1.5 % N code = 31244-3) BASOPHILS; Normal (test 0.9 % N code = 66546-9) [facility]] C-REACTIVE [id number] 13:58:00 Test Item Value Reference Range Interpretation Comments C-REACTIVE PROTEIN (test code = 2.1 mg/L <8.0 N C-REACTIVE PROTEIN) [facility]] CMP [id number] 11:40:00 Test Item Value Reference Range Interpretation Comments GLUCOSE; Normal 118 mg/dl 65-139 N Non-fasting (test code = reference inter ananya 1547-9) UREA NITROGEN (BUN) 16 mg/dl 7-25 N (test code = UREA NITROGEN (BUN)) CREATININE (test 0.72 mg/dl 0.50-1.10 N code = CREATININE) eGFR NON- 98 {ML/MIN/1.7} > OR = 60 N GEORGIAN (test code = eGFR NON-) eGFR 114 {ML/MIN/1.7} > OR = 60 N GEORGIAN (test code = eGFR ) BUN/CREATININE NOT [...] mg/dl 0.2-1.2 N Normal (test code = 16630-7) ALKALINE PHSPHATASE 75 u/l 33-115 N (test code = ALKALINE PHSPHATASE) AST; Normal (test 14 u/l 10-35 N code = 1916-6) ALT; Normal (test 20 u/l 6-29 N code = 1742-6) [facility]] SED RATE BY MODIFIED [id number] 11:40:00 Test Item Value Reference Range Interpretation Comments SED RATE BY MODIFIED WESTERGREN (test 2 mm/h < OR = 20 N code = SED RATE BY MODIFIED WESTERGREN) [facility]] CBC (INCLUDES DIFF/PLT)2018-11-23 11:40:00 Test Item Value Reference Range Interpretation Comments WHITE BLOOD CELL COUNT 8.6 {Thousand/u} 3.8-10.8 N (test code = WHITE BLOOD CELL COUNT) RED BLOOD CELL COUNT (test 4.61 {Million/uL} 3.80-5.10 N code = RED BLOOD CELL COUNT) HEMAGLOBIN; Normal (test 13.4 g/dl 11.7-15.5 N code = 11614-4) HEMATOCRIT; Normal (test 41.4 % 35.0-45.0 N code = 4544-3) MCV; Normal (test code = 89.8 fL 80.0-100.0 N 787-2) MCHC; Normal (test code = 32.4 g/dl 32.0-36.0 N 74688-0) RDW; Normal (test code = 13.2 % 11.0-15.0 N 788-0) PLATELET COUNT; Normal 316 {Thousand/u} 140-400 N (test code = 777-3) MPV; Normal (test code = 10.0 fL 7.5-12.5 N 06345-3) ABSOLUTE NEUTROPHILS (test 5495 {cells/uL} 2495-2328 N code = ABSOLUTE NEUTROPHILS) ABSOLUTE LYMPHOCYTES [...] Normal (test 8.7 % N code = 57365-0) EOSINOPHILS; Normal (test 1.4 % N code = 51392-6) BASOPHILS; Normal (test 0.8 % N code = 39319-5) [facility]] C-REACTIVE [id number] 11:40:00 Test Item Value Reference Range Interpretation Comments C-REACTIVE PROTEIN (test code = 2.5 mg/L <8.0 N C-REACTIVE PROTEIN) [facility][Q] QUANTIFERON( R)-TB GOLD PLUS, 1 [id number] 11:40:00 Test Item Value Reference Range Interpretation [...] For additional info rmation, please refer [email or web address] [email or web address]/fa q/204(This link is being p rovided for informational/e ducational purposes only.) [facility]] CMP [id number] 16:35:00 Test Item Value Reference Range Interpretation Comments GLUCOSE; Normal 105 mg/dl 65-139 N Non-fasting (test code = 1547-9) referen ce interval UREA NITROGEN (BUN) 12 mg/dl 7-25 N (test code = UREA NITROGEN (BUN)) CREATININE (test 0.82 mg/dl 0.50-1.10 N code = CREATININE) eGFR NON- 85 {ML/MIN/1.7} > OR = 60 N GEORGIAN (test code = eGFR NON-) eGFR 98 {ML/MIN/1.7} > OR = 60 N GEORGIAN (test code = eGFR ) BUN/CREATININE RATIO NOT APPLICABLE 6-22 (test code [...] mg/dl 0.2-1.2 N Normal (test code = 97420-7) ALKALINE PHSPHATASE 61 u/l 33-115 N (test code = ALKALINE PHSPHATASE) AST; Normal (test 16 u/l 10-35 N code = 1916-6) ALT; Normal (test 21 u/l 6-29 N code = 1742-6) [facility]] SED RATE BY MODIFIED [id number] 16:35:00 Test Item Value Reference Range Interpretation Comments SED RATE BY MODIFIED WESTERGREN (test 3 mm/h < OR = 20 N code = SED RATE BY MODIFIED WESTERGREN) [facility]] CBC (INCLUDES DIFF/PLT)2018-03-03 16:35:00 Test Item Value Reference Range Interpretation Comments WHITE BLOOD CELL COUNT 7.3 {Thousand/u} 3.8-10.8 N (test code = WHITE BLOOD CELL COUNT) RED BLOOD CELL COUNT (test 4.55 {Million/uL} 3.80-5.10 N code = RED BLOOD CELL COUNT) HEMOGLOBIN; Normal (test 13.4 g/dl 11.7-15.5 N code = 34768-2) HEMATOCRIT; Normal (test 39.8 % 35.0-45.0 N code = 4544-3) MCV; Normal (test code = 87.5 fL 80.0-100.0 N 787-2) MCHC; Normal (test code = 33.7 g/dl 32.0-36.0 N 07626-5) RDW; Normal (test code = 12.8 % 11.0-15.0 N 788-0) PLATELET COUNT; Normal 314 {Thousand/u} 140-400 N (test code = 777-3) MPV; Normal (test code = 9.9 fL 7.5-12.5 N 51052-9) ABSOLUTE NEUTROPHILS (test 5125 {cells/uL} 2141-5553 N code = ABSOLUTE NEUTROPHILS) ABSOLUTE LYMPHOCYTES [...] Normal (test 7.6 % N code = 85744-6) EOSINOPHILS; Normal (test 0.4 % N code = 87192-4) BASOPHILS; Normal (test 1.1 % N code = 01090-4) [facility]] C-REACTIVE [id number] 16:35:00 Test Item Value Reference Range Interpretation Comments C-REACTIVE PROTEIN (test code = 2.5 mg/L <8.0 N C-REACTIVE PROTEIN) [facility]
[2022-11-22 11:53] LABS: Urine Blood Trace-intact (Negative); Urine Glucose Negative (Negative); Urine Protein Negative (Negative); Urine Specific Gravity 1.015 (1.005-1.030); Urine pH 5.5 (5.0-7.0)
[2022-11-22 12:15] LABS: Absolute Lymphocytes (CBC) 2.4 K/uL (0.7-4.9); Hematocrit 37.8 % (36.0-45.0); Lymphocytes % 32.5 % (15.3-44.8); MCV 90.9 fL (80-100); MPV 8.2 fL (7.6-11.3); RBC Red Blood Cell Count 4.16 M/uL (3.86-4.86)
[2022-11-22 12:16] LABS: Transitional Epithelial <5 /HPF (None Seen); Urine Bacteria <20 /HPF (<20); Urine Mucus Slight /HPF (None Seen); Urine RBC <5 /HPF (None Seen)
[2022-11-22 12:54] LABS: Urine Specific Gravity/Preg 1.015 (1.005-1.030)
[2022-11-22] MEDS ORDERED: KETOROLAC 30 MG/ML INJ ONE (13:08)
[2022-11-22 13:14] LABS: Albumin 3.7 g/dL (3.4-5.0); Bilirubin Total 0.4 mg/dL (0.2-1.0); Potassium 3.6 mmol/L (3.5-5.1); Protein, Total 6.9 g/dL (6.4-8.2)
[2022-11-22] MEDS ORDERED: MORPHINE 4 MG/ML SYR ONE (13:43)
--- NOTE | 2022-11-22 14:34 | RAD REPORT ---
EXAM DESCRIPTION: CTAbdomen Pelvis W Contrast - 11/22/2022 2:25 pm CLINICAL HISTORY: ABD PAIN COMPARISON: Abdomen Pelvis W Contrast dated 10/28/2022 TECHNIQUE: CT of the abdomen and pelvis was performed with IV contrast. All CT scans are performed using dose optimization technique as appropriate and may include automated exposure control or mA/KV adjustment according to patient size. FINDINGS: Lower chest: No acute abnormality. Liver: Too small to characterize liver lesions which are likely benign. Biliary: No biliary ductal dilatation. Cholecystectomy. Stomach: No significant focal abnormality. Duodenum: No significant focal abnormality. Pancreas: No significant abnormality. Spleen: No significant abnormality. Adrenal: No suspicious lesions. Kidney/ureter: No hydronephrosis. No renal calculi. Low-density left renal lesion which is consistent with a cyst. Retroperitoneum: No retroperitoneal adenopathy. Vascular: No aneurysm. Bowel: No significant focal abnormality. No appendix identified. No secondary signs of acute appendic itis. The appendix may be surgically absent. Peritoneum: No ascites or free air. Small fat containing umbilical hernia. Bladder: Grossly unremarkable. Reproductive: No adnexal masses. Hysterectomy. Bones: No acute fracture. L4-5 fusion with interbody spacer. Grade 1 anterolisthesis of L4 on L5 is n oted. Other: n/a IMPRESSION: No acute intra-abdominal or pelvic finding. Incidental findings as noted above.
[2022-11-22 18:24] VITALS: BP 120/71; TEMP 97.9; O2SAT 100
--- NOTE | 2022-12-05 16:22 | EDPHYS ---
Physician Documentation [facility] Name: Gaurav Beavers Age: 52 yrs Sex: Female : 1970 Arrival Date: 11/22/2022 Time: 11:38 Bed 15 Private MD: Eric Weaver V ED Physician Yair Carrera HPI: 11/22 12:33 This 52 yrs old Female presents to ER via Ambulatory with complaints of Flank rt Pain. 12:33 Patient presents to the ED with about 3 days of a right flank pain. It has been rt constant but fluctuates in intensity. Patient states that this is identical to the pain that she had when she had a cholecystectomy performed about 1 month ago. This was reportedly an uncomplicated procedure, no postoperative concerns. She denies any urinary symptoms, nausea, vomiting. Symptoms are moderate severity, aching nature, nonradiating, no other aggravating alleviating factors.. 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 - Social history:: Smoking status: unknown. - Family history:: not pertinent. ROS: 12:33 Constitutional: Negative for fever, chills, and weight loss, Cardiovascular: Negative rt for chest pain, palpitations, and edema, Respiratory: Negative for shortness of breath, cough, wheezing, and pleuritic chest pain, MS/Extremity: Negative for injury and deformity, Skin: Negative for injury, rash, and discoloration, Neuro: Negative for headache, weakness, numbness, tingling, and seizure, Psych: Negative for depression, anxiety, suicide ideation, homicidal ideation, and hallucinations. 12:33 Abdomen/GI: 12:33 : Positive for flank pain, Negative for burning with urination. Exam: 12:33 Constitutional: This is a well developed, well nourished patient who is awake, alert, rt and in no acute distress. Head/Face: Normocephalic, atraumatic. Chest/axilla: Normal chest wall appearance and motion. Nontender with no deformity. No lesions are appreciated. Cardiovascular: Regular rate and rhythm with a normal S1 and S2. No gallops, murmurs, or rubs. Normal PMI, no JVD. No pulse deficits. Respiratory: Lungs have equal breath sounds bilaterally, clear to auscultation and percussion. No rales, rhonchi or wheezes noted. No increased work of breathing, no retractions or nasal flaring. Abdomen/GI: Soft, non-tender, with normal bowel sounds. No distension or tympany. No guarding or rebound. No evidence of tenderness throughout. MS/ Extremity: Pulses equal, no cyanosis. Neurovascular intact. Full, normal range of motion. Neuro: Awake and alert, GCS 15, oriented to person, place, time, and situation. Cranial nerves II-XII grossly intact. Motor strength 5/5 in all extremities. Sensory grossly intact. Cerebellar exam normal. Normal gait. Psych: Awake, alert, with orientation to person, place and time. Behavior, mood, and affect are within normal limits. 12:33 Back: Minimal right-sided CVA tenderness, no midline tenderness. Vital Signs: 11:43 BP 114 / 82; Pulse 67; Resp 16; Pulse Ox 98% on R/A; db 11:56 BP 141 / 81; Pulse 68; Resp 18; Temp 97.2(TE); Pulse Ox 100% on R/A; Weight 97.52 kg; db Height 5 ft. 3 in. ; Pain 8/10; 12:30 BP 112 / 74; Pulse 61; Resp 16; Pulse Ox 100% on R/A; db 13:00 BP 110 / 70; Pulse 58; Resp 16; Pulse Ox 97% on R/A; db 14:00 BP 120 / 69; Pulse 63; Resp 19 S; Pulse Ox 100% ; kc6 14:30 BP 117 / 68; Pulse 60; Resp 16; Pulse Ox 99% on R/A; db 15:34 BP 120 / 71; Pulse 56; Resp 18; Temp 97.9; Pulse Ox 100% on R/A; db 11:56 Body Mass Index 38.09 (97.52 kg, 160.02 cm) db 11:56 Pain Scale: Adult db MDM: 11:46 Patient medically screened. rt 18:26 Differential diagnosis: Kidney stone, pyelonephritis, retained gallbladder stone, rt musculoskeletal back pain. Data reviewed: vital signs, nurses notes, lab test result(s), EKG, radiologic studies. Independent interpretation of the following test(s) in the Emergency Department CT Scan: My interpretation is No stone seen on my interpretation of the CT images. Test considered but Not performed: MRI: No signs or symptoms concerning for cauda equina syndrome, spinal epidural abscess, MRI not indicated. Care significantly affected by the following chronic conditions: Rheumatoid arthritis. Counseling: I had a detailed discussion with the patient and/or guardian regarding: the historical points, exam findings, and any diagnostic results supporting the discharge/admit diagnosis, lab results, radiology results, the need for outpatient follow up. Response to treatment: the patient's symptoms have mildly improved after treatment. 11/22 11:53 Order name: Urine Dipstick-Ancillary; Complete Time: 13:18 EDMS 11/22 11:55 Order name: Urine --Ancillary (enter results); Complete Time: 13:18 kj 11/22 12:13 Order name: Comprehensive Metabolic Panel; Complete Time: 13:18 EDMS 11/22 12:13 Order name: Lipase; Complete Time: 13:18 EDMS 11/22 12:13 Order name: CBC with Automated Diff; Complete Time: 13:18 EDNC 11/22 12:13 Order name: Urine Microscopic Only; Complete Time: 13:18 EDMS 11/22 11:53 Order name: CT Abd/Pelvis - IV Contrast Only; Complete Time: 14:51 rt 11/22 11:53 Order name: Urine Dipstick-Ancillary (obtain specimen); Complete Time: 13:22 rt Administered Medications: 13:22 Not Given (allergyy): Ketorolac IVP 30 mg IVP once db 13:42 Drug: morphine IVP or IV 4 mg Route: IVP; Infused Over: 4 mins; Site: right antecubital;db 14:16 Follow up: Response: No adverse reaction; Pain is decreased db Disposition Summary: 11/22/22 15:11 Discharge Ordered Location: Home rt Problem: new rt Symptoms: are unchanged rt Condition: Stable rt Diagnosis - Right flank pain rt Followup: rt - With: Eric Weaver MD - When: 2 - 3 days - Reason: Discharge Instructions: - Discharge Summary Sheet rt - Flank Pain, Adult rt Forms: - Medication Reconciliation Form rt - Thank You Letter rt - Antibiotic Education rt - Prescription Opioid Use rt Prescriptions: - Tramadol 50 mg Oral Tablet - take 1 tablet by ORAL route every 8 hours as needed; 12 tablet; Refills: 0, rt Product Selection Permitted - Prednisone 20 mg Oral Tablet - take 2 tablets by ORAL route once daily for 5 days; 10 tablet; Refills: 0, rt Product Selection Permitted - Cyclobenzaprine 5 mg Oral Tablet - take 1 tablet by ORAL route 3 times per day As needed; 15 tablet; Refills: 0, rt Product Selection Permitted Signatures: Dispatcher [employer] Tiarra Arnold RN RN db Yair Carrera MD MD rt Corrections: (The following items were deleted from the chart) 12:59 12:51 CBC+H.LAB.BRZ ordered. EDMS EDMS 13:01 12:51 COMPREHENSIVE METABOLIC PANEL+C.LAB.BRZ ordered. EDMS EDMS 13:01 12:51 LIPASE+C.LAB.BRZ ordered. EDMS EDMS 13:01 12:51 Urine Microscopic+U.LAB.BRZ ordered. EDMS EDMS 13:11 13:00 CT-ABD ordered. EDMS EDMS
--- NOTE | 2022-12-05 16:22 | ER ---
Nurse's Notes [facility] Name: Gaurav Beavers Age: 52 yrs Sex: Female : 1970 Arrival Date: 11/22/2022 Time: 11:38 Bed 15 Private MD: Eric Weaver V Diagnosis: Right flank pain Presentation: 11/22 11:56 Chief complaint: Patient states: right flank pain started this week. gall bladder db surgery 10/29. Coronavirus screen: Vaccine status: Patient reports receiving the 2nd dose of the covid vaccine. Client denies travel out of the [place] in the last 14 days. At this time, the client does not indicate any symptoms associated with coronavirus-19. Ebola Screen: Patient negative for fever greater than or equal to 101.5 degrees Fahrenheit, and additional compatible Ebola Virus Disease symptoms Patient denies exposure to infectious person. Patient denies travel to an Ebola-affected area in the 21 days before illness onset. No symptoms or risks identified at this time. Initial Sepsis Screen: Does the patient meet any 2 criteria? No. Patient's initial sepsis screen is negative. Does the patient have a suspected source of infection? Yes: Acute abdominal pain. Risk Assessment: Do you want to hurt yourself or someone else? Patient reports no desire to harm self or others. Onset of symptoms was November 22, 2022. 11:56 Method Of Arrival: Ambulatory db 11:56 Acuity: VENKAT 3 db Triage Assessment: 14:51 General: Appears in no apparent distress. comfortable, Behavior is calm, cooperative. 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 - Social history:: Smoking status: unknown. - Family history:: not pertinent. Screenin:00 [facility] ED Fall Risk Assessment (Adult) History of falling in the last 3 months, db including since admission No falls in past 3 months (0 pts) Confusion or Disorientation No (0 pts) Intoxicated or Sedated No (0 pts) Impaired Gait No (0 pts) Mobility Assist Device Used No (0 pt) Altered Elimination No (0 pt) Score/Fall Risk Level 0 - 2 = Low Risk Oriented to surroundings, Maintained a safe environment. Abuse screen: Denies threats or abuse. Denies injuries from another. Nutritional screening: No deficits noted. Tuberculosis screening: No symptoms or risk factors identified. Assessment: 11:59 Reassessment: Patient appears in no apparent distress at this time. Patient and/or db family updated on plan of care and expected duration. Pain level reassessed. Patient is alert, oriented x 3, equal unlabored respirations, skin warm/dry/pink. Pain: Complains of pain in back. Neuro: Level of Consciousness is awake, alert, obeys commands, Oriented to person, place, time, situation. Respiratory: Airway is patent Respiratory effort is even, unlabored, Respiratory pattern is regular, symmetrical. 12:30 Reassessment: Patient appears in no apparent distress at this time. Patient and/or db family updated on plan of care and expected duration. Pain level reassessed. Patient is alert, oriented x 3, equal unlabored respirations, skin warm/dry/pink. 13:30 Reassessment: Patient appears in no apparent distress at this time. Patient and/or db family updated on plan of care and expected duration. Pain level reassessed. Patient is alert, oriented x 3, equal unlabored respirations, skin warm/dry/pink. 14:30 Reassessment: Patient appears in no apparent distress at this time. Patient and/or db family updated on plan of care and expected duration. Pain level reassessed. Patient is alert, oriented x 3, equal unlabored respirations, skin warm/dry/pink. patient to CT. 15:35 Reassessment: Patient appears in no apparent distress at this time. Patient and/or db family updated on plan of care and expected duration. Pain level reassessed. Patient is alert, oriented x 3, equal unlabored respirations, skin warm/dry/pink. General: Appears in no apparent distress. comfortable, Behavior is calm, cooperative. Vital Signs: 11:43 BP 114 / 82; Pulse 67; Resp 16; Pulse Ox 98% on R/A; db 11:56 BP 141 / 81; Pulse 68; Resp 18; Temp 97.2(TE); Pulse Ox 100% on R/A; Weight 97.52 kg; db Height 5 ft. 3 in. ; Pain 8/10; 12:30 BP 112 / 74; Pulse 61; Resp 16; Pulse Ox 100% on R/A; db 13:00 BP 110 / 70; Pulse 58; Resp 16; Pulse Ox 97% on R/A; db 14:00 BP 120 / 69; Pulse 63; Resp 19 S; Pulse Ox 100% ; kc6 14:30 BP 117 / 68; Pulse 60; Resp 16; Pulse Ox 99% on R/A; db 15:34 BP 120 / 71; Pulse 56; Resp 18; Temp 97.9; Pulse Ox 100% on R/A; db 11:56 Body Mass Index 38.09 (97.52 kg, 160.02 cm) db 11:56 Pain Scale: Adult db ED Course: 11:38 Patient arrived in ED. mr 11:38 Eric Weaver MD is Private Physician. mr 11:39 Yair Carrera MD is Attending Physician. rt 11:56 Tiarra Saeed, SHANIQUE is Primary Nurse. db 11:57 Triage completed. db 11:59 Arm band placed on Patient placed in an exam room. db 12:08 Initial lab(s) drawn, by me, sent to lab. Inserted saline lock: 20 gauge in right bc6 antecubital area, using aseptic technique. 14:27 CT Abd/Pelvis - IV Contrast Only In Process Unspecified. EDMS 14:52 No provider procedures requiring assistance completed. db 14:55 Patient has correct armband on for positive identification. Bed in low position. Side db rails up X2. Pulse ox on. NIBP on. Warm blanket given. 15:10 Eric Weaver MD is Referral Physician. rt 15:35 IV discontinued, intact, bleeding controlled, No redness/swelling at site. db Administered Medications: 13:22 Not Given (allergyy): Ketorolac IVP 30 mg IVP once db 13:42 Drug: morphine IVP or IV 4 mg Route: IVP; Infused Over: 4 mins; Site: right antecubital;db 14:16 Follow up: Response: No adverse reaction; Pain is decreased db Medication: 15:35 VIS not applicable for this client. db Outcome: 15:11 Discharge ordered by . rt 15:35 Discharged to home ambulatory. db 15:35 Discharged to home with family. 15:35 Condition: stable 15:35 Discharge instructions given to patient, Instructed on discharge instructions, the need for admit, Prescriptions given X 3. 15:36 Patient left the ED. db Signatures: Dispatcher [employer] ZAINA MarksBing salas mr HiOlivia RN RN [id number] Tiarra Saeed RN RN db Yair Carrera MD MD rt [place], Breana bc6
== END 2022-11-22 15:36 | disposition home or self-care (01) ==
LOC: ER 11:35
DX: R10.9 Unspecified abdominal pain (principal); I10 Essential (primary) hypertension; Z88.6 Allergy status to analgesic agent
CPT/HCPCS: 85025; 36415; 81025; 83690; 80053; 74177; 96374; 99284; Q9967; 81003; 81015

== ENCOUNTER 2023-06-22 23:16 | Emergency (ER) | payer OTHER ==
--- OUTSIDE RECORDS SUMMARY | 2023-06-22 23:21 | XMS REPORT | Continuity of Care Document ---
:1970 Author Organization [facility] t Address [address] [place] [address] Care Team Providers Name Role Phone Pcp, Patient Does Not Have A Primary Care Physician [id number] Shayne Weaver MD Attending Clinician Murphy Rosa MD Attending Clinician STERLING_Huang_Drake_MOI Attending Clinician Unavailable Nura FITZGERALD, Dee Dee Lau Attending Clinician Drake Encinas Attending Clinician Unavailable David Nation MD Attending Clinician Catherine Escobar APRN Attending Clinician Provider, Unknown Attending Clinician Unavailable Arabella RODRÍGUEZ, Donald Mcbride Attending Clinician [phone] Rocky Meyer NP, Bernice Attending Clinician ELVIA WEINBERG Attending Clinician Unavailable Therapy, [facility] Attending Clinician Unavailable Elvia Weinberg MD Attending Clinician Doctor Unassigned, [place] Attending Clinician Unavailable MARIBELL COREA M.D. Attending Clinician Unavailable Ashish Shah Attending Clinician Lamberto Decker Attending Clinician NIKITA HOGAN M.D. Attending Clinician Unavailable Nikita Hogan Attending Clinician Brisa_Drake_MOI Admitting Clinician Unavailable MOE, MURPHY Admitting Clinician Unavailable Payers Payer Name Policy Type Policy Number Effective Date Expiration Date Sylvie deutsch [place] [id number] [facility] 1970 [facility] [id number] 2020 00:00:00 Problems Condition Condition Condition Status [...] 15:20:00 l 07/02/2018 00:00: Elder garvey 00 [facility] Spinal Spinal Disease Active Univers [...] Active Univers ALLERGIE Class [facility] [place] [facility] [place] Family History Family Member Diagnosis Comments Start Date Stop Date Source Mother [facility] history [facility] arthritis Mother Family history of essential [facility] hypertension Sister Family history of essential [facility] hypertension Social History Social Habit Start Date Stop Date Quantity Comments Source [facility] of Social 2022-11-25 2022-11-[address] function 00:00:00 00:00:00 Hospital Alcohol intake 2022-04-04 2022-04-04 Ex-drinker [facility] 00:00:00 00:00:00 (finding) Hospital Tobacco use and 2022-01-20 2022-01-20 Smokeless [facility] exposure 00:00:00 00:00:00 tobacco non-user Hospital Sex Assigned At [birth year] [facility] 00:[facility] 00:[facility]:00 Hospital Smoking Status Start Date Stop Date Source Unknown if ever smoked [facility] Never smoked tobacco [facility] Medications Ordered Filled Start Stop [...] mg 02 l tablet diazePAM 2021- No [id number] 2.5mg Q.37367340 Take 0.5 [facility] (VALIUM) 5 04-[id number] MG tablet 00:00: 04:59 3D (2.5 mg [facility] :[facility] total) by l mouth 3 (three) times a day as needed for muscle spasms (severe muscle spasm) for up to 10 days. diazePAM No [id number] 2.5mg Q.19356455 Take 0.5 [facility] (VALIUM) 5 04-[id number] MG tablet 00:00: 04:59 3D (2.5 mg [facility] 00 :00 total) by l mouth 3 (three) times a day as needed for muscle spasms (severe muscle spasm) for up to 10 days. HYDROcodone 2021- No [id number] 1{tbl} Q4H Take 1 [facility] -acetaminop 04-[address] hen (NORCO) 00:00: 04:59 mouth [facility] 10-325 mg 00 :00 every 4 l per tablet (four) hours as needed (pain) for up to 10 days .acute pain. Max Daily Amount: 6 tablets methocarbam 2021-0 2021- No 750mg Q.25D Take 1 M ethodi oL 04-[address] (Robaxin-75 00:00: 04:59 (750 mg [facility] 0) 750 MG 00 :00 total) by l tablet mouth 4 (four) times a day as needed for muscle spasms for up to 10 days. HYDROcodone 2021-0 2021- No [id number] 1{tbl} Q4H Take 1 [facility] -acetaminop 04-[address] hen (KONUX) 00:00: 04:59 mouth [facility] 10-325 mg 00 :00 every 4 l per tablet (four) hours as needed for moderate pain for up to 10 days .acute pain. Max Daily Amount: 6 tablets HYDROcodone 2021-0 2021- No [id number] 1{tbl} Q4H Take 1 [facility] -acetaminop 04-[address] hen [employer]) 00:00: 04:59 mouth [facility] 10-325 mg 00 :00 every 4 l per tablet (four) hours as needed (pain) for up to 10 days .acute pain. Max Daily Amount: 6 tablets methocarbam 2021-0 2021- No 750mg Q.25D Take 1 M ethodi oL 04-[address] (Robaxin-75 00:00: 04:59 (750 mg Ho sp[facility] 0) 750 MG 00 :00 total) by l tablet mouth 4 (four) times a day as needed for muscle spasms for up to 10 days. HYDROcodone 2021-0 2021- [place] [id number] 1{tbl} Q4H Take 1 [facility] -acetaminop 04-[address] hen [employer]) 00:00: 04:59 mouth [facility] 10-325 mg 00 :00 every 4 l per tablet (four) hours as needed for moderate pain for up to 10 days .acute pain. Max Daily Amount: 6 tablets diazePAM 2021-2021- No 2.5mg Q.44463743 Take 0.5 [facility] (VALIUM) 5 04-[id number] MG tablet 00:00: 00:00 3D (2.5 mg [facility] 00 :00 total) by l mouth 3 (three) times a day as needed for muscle spasms (severe muscle spasm) for up to 10 days. diazePAM 2021-2021- No 2.5mg Q.[id number] Take 0.5 [facility] (VALIUM) 5 04-03- [id number] tablets st MG tablet 00:00: 00:00 3D [...] spasm) for up to 10 days. methocarbam 2021-2021- No 750mg Q.25D Take 1 M ethodi [...] for up to 10 days. methocarbam 2021-0 2- No 750mg Q.25D Take 1 M ethodi oL 04-03- tablet st (Robaxin-75 00:00: 00:00 (750 mg Ho sp[facility] 0) 750 MG 00 :00 total) by l tablet mouth 4 (four) times a day as needed for muscle spasms for up to 10 days. methocarbam 2021-0 2021- No 500mg Q6H Take 1 Me thodi oL 02-04-[address] (ROBAXIN) 00:00: 00:00 (500 mg [facility] 500 MG 00 :00 total) by l tablet mouth every 6 (six) hours as needed for muscle spasms. methocarbam No 500mg Q6H Take 1 [facility] oL 02-04 07-[address] (ROBAXIN) 00:00: 00:00 (500 mg [facility] 500 MG 00 :00 total) by l tablet mouth every 6 (six) hours as needed for muscle spasms. cyclobenzap 2021- No 10mg QD Take 10 mg Methodi rine 01-[address] (FLEXERIL) 00:00: 00:00 nightly. Ho sp[facility] 10 mg 00 :00 l tablet cyclobenzap 2021- No 10mg QD Take 10 mg Methodi rine 01-[address] (FLEXERIL) 00:00: 00:00 nightly. [facility] spita 10 mg 00 :00 l tablet traMADoL Yes 50mg QD Take 50 mg Met hodi (ULTRAM) 50 5-[address] mg tablet 00:00: nightly as Ho spita 00 needed. l traMADoL 0 Yes 50mg QD Take 50 mg [facility] (ULTRAM) 50 5-[address] mg tablet 00:00: nightly as Ho spita 00 needed. l traMADoL 0 Yes 50mg QD Take 50 mg Met [facility] (ULTRAM) 50 5-[address] mg tablet 00:00: nightly as Ho spita 00 needed. l Rinvoq 15 2021- No 15mg QD Take 15 mg M ethodi mg tablet 01-[address] extended 00:00: 00:00 daily. Hospit a release 00 :00 Last dose l hr ER per tablet prescribin g MD is 01/24/2022 Rinvoq 15 2021- No 15mg QD Take 15 mg M ethodi mg tablet 01-[address] extended 00:00: 00:00 daily. Hospit a release 00 :00 Last dose l hr ER per tablet prescribin g MD is 01/24/2022 gabapentin 2021-0 Yes 1800mg [...] 00:00: nightly. [facility] 00 l omeprazole 2022-0 Yes 40mg QD Take 40 mg M ethodi (PriLOSEC) 4-[address] 40 MG 00:00: daily. Hospita capsule 00 l omeprazole 2022-0 Yes 40mg QD Take 40 mg M ethodi (PriLOSEC) 4-[address] 40 MG 00:00: daily. Hospita capsule 00 l omeprazole 2022-0 Yes 40mg QD Take 40 mg M ethodi (PriLOSEC) 4-[address] 40 MG 00:00: daily. Hospita capsule 00 l bisoproloL- 2022-0 Yes 1{tbl} QD Take 1 Me thodi hydrochloro 3-[address] thiazide 00:00: mouth Hospita (ZIAC) 00 daily. l 5-6.25 mg per tablet bisoproloL- 2022-0 Yes 1{tbl} QD Take 1 Me thodi hydrochloro 3-[address] thiazide 00:00: mouth Hospita (ZIAC) 00 daily. l 5-6.25 mg per tablet bisoproloL- 2022-0 Yes 1{tbl} QD Take 1 Me thodi [...] st 50 MG 00:00: nightly. Hospita tablet l casirivimab 2020- No [id number] 1200mg 1,200 mg, Univers -imdevimab 05-09 IV ity of 1200 mg in 22:15: 21:41 Infusion, [place] 60 mL NS 00 :00 ONCE, Medical MINI-BAG Administer Branc h over 20 Minutes, Bridgette 05/09/21 at 1715, For 1 dose
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 l predniSONE Yes 2{tbl} Take 2 Met hodi (DELTASONE) 1-[address] 5 mg tablet 00:00: mouth as Ho spita 00 needed. l predniSONE Yes 2{tbl} Take 2 Met hodi [...] REPEAT IN 5-15 MINUTES. 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 DULoxetine Yes 1{capsu Q.5D Take 1 Me thodi (CYMBALTA) 5-03 le} capsule by st 60 MG 00:00: mouth 2 Hospita capsule 00 (two) l times a day. DULoxetine Yes 1{capsu Q.5D Take 1 Me [...] SUPP 00:00: [place]al [place] 00 [facility] CYCLOBENZAP Yes 1 Tab Oral Univers RINE 10 MG 1-27 TID ity of ORAL TAB 00:00: [place] [address] [place] [address] BISACODYL 2005- Yes 1 Univers 10 MG 1-27 Suppositor ity of RECTAL SUPP 00:00: [place]al [place] 00 [facility] CYCLOBENZAP 2006-0 Yes 1 Tab Oral Univers RINE 10 MG 1-27 TID ity of ORAL TAB 00:00: [place] [facility] HYDROCODONE Yes 1 Tab Oral Univers -ACETAMINOP 1-26 Q4HPRN ity of HEN 5-325 00:00: [place] MG ORAL TAB [facility] DOCUSATE Yes 1 Cap Oral Uni vers SODIUM 100 1-26 BID ity of MG ORAL CAP 00:00: [place] [facility] HYDROCODONE Yes 1 Tab Oral Univers -ACETAMINOP 1-26 Q4HPRN ity of HEN 5-325 00:00: [place] MG ORAL TAB [facility] DOCUSATE Yes 1 Cap Oral Uni vers SODIUM 100 1-26 BID ity of MG ORAL CAP 00:00: [place] [facility] acetaminoph acetaminoph No acetaminop Leslee en 300 [...] AT BEDTIME FOR INSOMNIA Losartan Losartan Yes 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 a ns Tablet Tablet Immunizations Ordered Filled Date Status Comments Source Immunization Name Immunization Name [facility] DEWEYIDSharifa 2021-09-02 Completed [facility] MRNA VACCINATION 00:00:00 [facility] COVIDSharifa 2021-09-02 Completed [facility] t MRNA VACCINATION 00:00:00 [facility] PPD 2013-09-28 Completed [facility] 00:00:00 PPD 2012-10-14 Completed [facility] VACCIN[facility] Vital Signs Vital Name Observation Time Observation Value Comments Source Systolic blood 2021-05-09 121 mm[Hg] University of pressure 22:30:00 [facility] Diastolic blood 2021-05-09 61 mm[Hg] University o f pressure 22:30:00 [facility] Heart rate 2021-05-09 77 /min University 22:30:00 [facility] Body temperature 2021-05-09 36.44 Nataly University 22:30:00 [facility] Respiratory rate 2021-05-09 18 /min University 22:30:00 [facility] Oxygen saturation 2021-05-09 95 /min [facility] in Arterial blood 22:30:00 [facility] by Pulse oximetry [place] Body weight 2021-05-09 102.513 kg University 21:11:00 [facility] BMI 2021-05-09 40.03 kg/m2 University 21:11:00 [facility] Body height 2021-05-09 160 cm University 21:11:00 [facility] Systolic blood 2022-04-03 117 mm[Hg] [facility] pressure 16:06:36 [facility] Diastolic blood 2022-04-03 65 mm[Hg] [facility] pressure 16:06:36 [facility] Heart rate 2022-04-03 84 /min [facility] 16:06:36 Hospital Body temperature 2022-04-03 37.33 Nataly [facility] 16:06:36 Hospital Respiratory rate 2022-04-03 18 /min [facility] 16:06:36 Hospital Oxygen saturation 2022-04-03 97 /min [facility] in Arterial blood 16:06:36 Hospital by Pulse oximetry Body height 2022-04-02 160 cm [facility] 11:02:00 Hospital Body weight 2022-04-02 101.152 kg [facility] 11:02:00 Hospital BMI 2022-04-02 39.50 kg/m2 [facility] 11:02:00 Hospital Weight 2020-12-19 239.5 [lb_av] [facility] 15:52:00 Body mass index 2020-12-19 42.43 kg/m2 [facility] (BMI) [Ratio] 15:52:00 Body temperature 2020-12-19 97.7 [degF] [facility] 15:52:00 Heart Rate 2020-12-19 121 /min [facility] 15:52:00 Systolic blood 2020-12-19 152 mm[Hg] Location: RUE; [facility] pressure 15:52:00 Position: Sitting Diastolic blood 2020-12-19 81 mm[Hg] Location: R[facility]; [facility] pressure 15:52:00 Position: Sitting Systolic blood 2020-09-21 128 mm[Hg] Location: RUE; [facility] pressure 13:39:00 Position: Sitting Diastolic blood 2020-09-21 80 mm[Hg] Location: RUE; [facility] pressure 13:39:00 Position: Sitting Weight [...] BP Systolic 2018-11-23 125 mm[Hg] Location: [facility]; [facility] 11:18:00 Position: Sitting BP Diastolic 2018-11-23 [...] BP Diastolic 2018-03-03 87 mm[Hg] Location: [facility]; [facility] 15:41:00 Position: Sitting Height 2018-03-03 63 [in_us] [facility] 15:41:00 Weight 2018-03-03 224.4375 [lb_av] [facility] 15:41:00 Body Mass Index 2018-03-03 39.76 kg/m2 [facility] Calculated 15:41:00 Heart Rate 2018-03-03 101 /min Location: R [facility] 15:41:00 Radial; Procedures Procedure Date / Time Performing Clinician Source Performed US VASCULAR SCREENING 2022-11-25 18:48:36 [facility] HEART SCAN PLUS CT HEART SCAN PLUS W 2022-11-25 18:17:41 [facility] PHYSICIAN ORDER XR LUMBAR SPINE 2 OR 3 VW 2022-08-29 18:28:01 [facility] XR LUMBAR SPINE 2 OR 3 VW 2022-04-22 19:20:00 [facility] HEMOGLOBIN 2022-04-03 09:43:00 Prabhakar Nuno [facility] spital SURGICAL PATHOLOGY 2022-04-02 18:08:00 [facility] REQUEST OR FL > 1 HOUR 2022-04-02 17:10:00 [facility] HC NERVE BLOCK ERECTOR 2022-04-02 16:49:02 David Nation [facility] SPINAE INTRAOPERATIVE MONITORING 2022-04-02 16:03:41 [facility] OR FL > 1 HOUR 2022-04-02 15:10:00 [facility] ARTERIAL LINE 2022-04-02 14:40:43 Tiarra Amos [facility] Ana ANESTHESIA INTUBATION 2022-04-02 13:17:00 [facility] Ana FUSION, SPINE, LUMBAR, 2022-04-02 13:07:00 [facility] XLIF ABO AND RH CONFIRMATION 2022-04-02 11:09:00 [facility] [place] BY PROTOCOL URINE CULTURE 2022-03-21 15:58:00 Luz [facility] URINALYSIS SCREEN AND 2022-03-21 15:58:00 Catherine Escobar [facility] [place] MICROSCOPY, WITH REFLEX TO CULTURE CBC WITH PLATELET AND 2022-03-21 15:44:00 [facility] DIFFERENTIAL BASIC METABOLIC PANEL 2022-03-21 15:44:00 [facility] PROTHROMBIN TIME WITH INR 2022-03-21 15:44:00 [facility] PARTIAL THROMBOPLASTIN 2022-03-21 15:44:00 [facility] TIME (PTT) ESTIMATED GFR 2022-03-21 15:44:00 [facility] TYPE AND SCREEN 2022-03-21 15:44[facility] 2022-03-21 15:44:00 [facility]EM[facility] A1C 2022-03-21 15:44:00 [facility] XR CERVICAL SPINE 2 OR 3 2022-02-25 18:29:00 Moe, [facility] VW SURGICAL PATHOLOGY 2022-02-03 16:40:00 Moe [facility] REQUEST XR CERVICAL SPINE 1 2022-02-03 15:33:00 Moe [facility] XR CERVICAL SPINE 1 2022-02-03 15:20:00 Moe [facility] XR CERVICAL SPINE 1 2022-02-03 13:35:00 Moe [facility] [place] AN ELECTIVE 2022-02-03 12:39:00 Tiarra Amos ospital ENDOTRACHEAL AIRWAY Ana DISCECTOMY, CERVICAL, 2022-02-03 12:27:00 Moe [facility] WITH FUSION, ANTERIOR APPROACH CBC WITH PLATELET AND 2022-01-20 19:32:00 Murphy Rosa [facility] DIFFERENTIAL BASIC METABOLIC PANEL 2022-01-20 19:32:00 Murphy Rosa Fox [facility] PROTHROMBIN TIME WITH INR 2022-01-20 19:32:00 [facility] PARTIAL THROMBOPLASTIN 2022-01-20 19:32:00 Moe, [facility] TIME (PTT) HEMOGLOBIN A1C 2022-01-20 19:32:00 [facility] 2022-01-20 19:32:00 [facility] ECG PRE/POST OP 2022-01-20 19:24:[address] [facility] [address] CERVICAL SPINE WO 2022-01-02 19:49:00 Moe [facility] CONTRAST CT LUMBAR SPINE WO 2022-01-02 19:48:00 Moe [facility] CONTRAST XR CERVICAL SPINE 2022-01-02 18:24:00 [facility] COMPLETE W FLEX EXT XR LUMBAR SPINE AP 2022-01-02 18:24:00 [facility] LATERAL FLEXION AND EXTENSION XR SPINE SCOLIOSIS 2-3 2022-01-02 18:24:00 [facility] VIEWS MRI SPINE EXTERNAL STUDY 2021-11-05 22:46:00 [facility] MRI SPINE EXTERNAL STUDY 2021-11-03 22:14:00 Murphy Rosa [facility] CONSENT/REFUSAL FOR 2021-05-09 05:01:00 [facility]igned, [facility] DIAGNOSIS AND TREATMENT [facility] [QL] CBC (INCLUDES 2020-12-19 00:00:00 [...] Planned Date Details Comments Source Future Scheduled 2023-05-17 Screening for [facility] Test 04:08:32 malignant neoplasm of colon (procedure) [code = 786664751] Future Scheduled 2023-05-17 Screening for [facility] Test 04:08:32 malignant neoplasm of colon (procedure) [code = 848492746] Future Scheduled 2023-05-17 [facility] for [facility] Test 04:08:32 malignant neoplasm of colon (procedure) [code = 162091611] Future Scheduled 2023-05-17 Hepatitis C screening [facility] Test 04:08:32 (procedure) [code = 303291704] Future Scheduled 2023-05-17 Screening for [facility] Test 04:08:32 malignant neoplasm of cervix (procedure) [code = 985361765] Future Scheduled 2023-05-17 BREAST CANCER [facility] Test 04:08:32 SCREENING [code = BREAST CANCER SCREENING] Future Scheduled 2023-05-17 Screening for [facility] Test 04:08:32 malignant neoplasm of colon (procedure) [code = 436508558] Future Scheduled 2023-05-17 Screening for [facility] Test 04:08:32 malignant neoplasm of colon (procedure) [code = 499399943] Future Scheduled 2023-05-17 SHINGLES VACCINES (1 Met [facility] Test 04:08:32 of 2) [code = SHINGLES VACCINES (1 of 2)] Future Scheduled 2023-05-17 COVID-19 VACCINE (6 - [facility] Test 04:08:32 Moderna series) [code = COVID-19 VACCINE (6 - Moderna series)] Future Scheduled 2023-05-17 INFLUENZA VACCINE [facility] Test 04:08:32 (#1) [code = INFLUENZA VACCINE (#1)] Future Scheduled 2022-11-07 Hepatitis C screening [facility] Test 13:52:28 (procedure) [code = 353927738] Future Scheduled 2022-11-07 Screening for [facility] Test 13:52:28 malignant neoplasm of cervix (procedure) [code = 312454876] Future Scheduled 2022-11-07 BREAST CANCER [facility] Test 13:52:28 SCREENING [code = BREAST CANCER SCREENING] Future Scheduled 2022-11-07 COLONOSCOPY SCREENING [facility] Test 13:52:28 [code = COLONOSCOPY SCREENING] Future Scheduled 2022-11-07 SHINGLES VACCINES (1 [facility] Test 13:52:28 of 2) [code = SHINGLES VACCINES (1 of 2)] Future Scheduled 2022-11-07 INFLUENZA VACCINE [facility] Test 13:52:28 [code = INFLUENZA VACCINE] Future Scheduled 2022-09-01 Hepatitis C screening [facility] Test 13:29:43 (procedure) [code = 728204973] Future Scheduled 2022-09-01 Screening for [facility] Test 13:29:43 malignant neoplasm of cervix (procedure) [code = 567778694] Future Scheduled 2022-09-01 BREAST CANCER [facility] Test 13:29:43 SCREENING [code = BREAST CANCER SCREENING] Future Scheduled 2022-09-01 COLONOSCOPY SCREENING [facility] Test 13:29:43 [code = COLONOSCOPY SCREENING] Future Scheduled 2022-09-01 SHINGLES VACCINES (1 Met [facility] Test 13:29:43 of 2) [code = SHINGLES VACCINES (1 of 2)] Future Scheduled 2022-09-01 INFLUENZA VACCINE Method [facility] Test 13:29:43 [code = INFLUENZA VACCINE] Encounters Start End Encounter Admission Attending Care Care Encounter Source Date/Time Date/Time Type Type Clinicians Facility Department ID 2022-11-25 2022-11-25 [facility] 1.2.840.1 [id number] Methodi 13:00:31 23:59:00 Encounter Shayne [id number] 3.430.2.7 Hospit a .3.332545 l .8 2022-11-25 2022-11-25 [facility] 1.2.840.1 [id number] Methodi 13:00:17 23:59:00 Encounter Shayne [id number] 3.430.2.7 Hospit a .3.838588 l .8 2022-11-25 2022-11-25 Outpatient [facility] [id number] [address] [place] [address] 00:00:00 00:00:00 SHAYNE [address] 2022-11-25 2022-11-25 Outpatient [facility] [id number] [address] [place] [address] 00:00:00 00:00:00 SHAYNE [address] 2022-11-25 2022-11-25 Travel 1.2.840.1 1.2.923.550 [id number] Methodi 00:00:00 00:00:[address] 3.430.2.7 0.2.7.3.698 Ho spita .3.263244 084.8 l .8 2022-11-07 2022-11-07 Travel 1.2.840.1 1.2.305.433 [id number] Methodi 00:00:00 00:00:[address] 3.430.2.7 0.2.7.3.698 Ho spita .3.605757 084.8 l .8 2022-11-07 2022-11-07 Transcribe Owen, 1.2.840.1 [id number] Methodi 00:00:00 00:00:00 Orders Shayne 81463.1.[address] 3.430.2.7 Hospit a .3.291388 l .8 2022-11-07 2022-11-07 Travel 1.2.840.1 1.2.865.925 [id number] Methodi 00:00:00 00:00:[address] 3.430.2.7 0.2.7.3.698 Ho spita .3.426781 084.8 l .8 2022-11-07 2022-11-07 Transcribe Owen, 1.2.840.1 [id number] Methodi 00:00:00 00:00:00 Orders Shayne 63684.1.[address] 3.430.2.7 Hospit a .3.643876 l .8 2022-08-29 2022-08-29 [facility] Murphy Rosa 1.2.840.1 [id number] Methodi 12:19:42 23:59:00 Encounter Fox 59331.1.[address] 3.430.2.7 Hospit a .3.282898 l .8 2022-08-29 2022-08-29 [facility] Murphy Rosa 1.2.840.1 [id number] Methodi 12:19:42 23:59:00 Encounter Fox 12910.1.[address] 3.430.2.7 Hospit a .3.436924 l .8 2022-08-29 2022-08-29 Office Murphy Rosa 1.2.840.1 [id number] Methodi 13:45:00 13:45:00 Visit Fox 88919.1.[address] 3.430.2.7 Hospit a .3.167226 l .8 2022-08-29 2022-08-29 Office Murphy Rosa 1.2.840.1 [id number] Methodi 13:45:00 13:45:00 Visit Fox 59423.1.[address] 3.430.2.7 Hospit a .3.548840 l .8 2022-08-29 2022-08-29 Travel 1.2.840.1 1.2.036.930 [id number] Methodi 00:00:00 00:00:[address] 3.430.2.7 0.2.7.3.698 Ho spita .3.723587 084.8 l .8 2022-08-29 2022-08-29 Travel 1.2.840.1 1.2.248.912 [id number] Methodi 00:00:00 00:00:[address] 3.430.2.7 0.2.7.3.698 Ho spita .3.161223 084.8 l .8 2022-08-26 2022-08-26 Ada Rosa Murphy 1.2.840.1 [id number] 21 [id number] Methodi 00:00:00 00:00:00 Only Fox 13840.1.[address] 3.430.2.7 Hospit a .3.518535 l .8 2022-08-26 2022-08-26 Murphy Kwan 1.2.840.1 [id number] 21 [id number] Methodi 00:00:00 00:00:00 Only Fox 00726.1.[address] 3.430.2.7 Hospit a .3.370053 l .8 2022-07-22 2022-07-22 Outpatient FOG_Dieter_ AOSM AOSM [id number] Leslee 00:00:00 00:00:00 Drake_[place] [id number] Ortho pe dic Sports Medic[facility] e 2022-07-16 2022-07-16 Travel 1.2.840.1 1.2.590.255 [id number] Methodi 00:00:00 00:00:[address] 3.430.2.7 0.2.7.3.698 Ho spita .3.686827 084.8 l .8 2022-07-16 2022-07-16 Travel 1.2.840.1 1.2.871.888 [id number] Methodi 00:00:00 00:00:[address] 3.430.2.7 0.2.7.3.698 Ho spita .3.545831 084.8 l .8 2022-05-30 2022-05-30 Outpatient FOG_Dieter_ AOSM AOSM [id number] Leslee 00:00:00 00:00:00 [place] [id number] Ortho pe dic Sports Medicin e 2022-04-22 2022-04-22 [facility] Murphy Rosa 1.2.840.1 [id number] 2 [id number] Methodi 14:00:00 23:59:00 Encounter Fox 70111.1.[address] 3.430.2.7 Hospit a .3.729472 l .8 2022-04-22 2022-04-22 [facility] Murphy Rosa 1.2.840.1 [id number] 21 [id number] Methodi 14:45:00 15:15:20 Visit Fox 22892.1.[address] 3.430.2.7 Hospit a .3.820976 l .8 2022-04-22 2022-04-22 Travel 1.2.840.1 1.2.749.312 6026 069410 Methodi 00:00:00 00:00:[address] 3.430.2.7 0.2.7.3.698 Ho spita .3.981635 084.8 l .8 2022-04-22 2022-04-22 Orders Murphy Rosa 1.2.840.1 [id number] 21 [id number] Methodi 00:00:00 00:00:00 Only Fox 24351.1.[address] 3.430.2.7 Hospit a .3.740960 l .8 2022-04-14 2022-04-14 Outpatient FOG_Dieter_ AOSM AOSM 630 9955-20 Leslee 00:00:00 00:00:00 Chris_LO [id number] Ortho pe dic Sports Medicin e 2022-04-04 2022-04-04 Orders Nura, 1.2.840.1 [id number] 2099 [id number] Methodi 00:00:00 00:00:00 Only Dee Dee Sid 75573.1.[address] 3.430.2.7 Hospit a .3.663234 l .8 2022-04-02 2022-04-03 Murphy Jacobs 1.2.840.1 [id number] 2 [id number] Methodi 05:07:00 15:26:00 Encounter Fox 21689.1.[address] 3.430.2.7 Hospit a .3.786848 l .8 2022-04-03 2022-04-03 Outpatient Dieter, AOÁLVARO AO [id number] 6-1 00:00:00 00:00:00 Drake 720-11ed-8 [id number] 2022-04-03 2022-04-03 Drake AOSM [place] - Ortho [id number] 1 Leslee 00:00:00 00:00:00 Kirsten Encinas - Or thlianna CO: 6565 FOG_Bracing dic Mariel _[facility] [place] [phone] 2022-04-03 2022-04-03 Orders Moe Murphy 1.2.840.1 [id number] 21 [id number] Methodi 00:00:00 00:00:00 Only Fox 10912.1.[address] 3.430.2.7 Hospit a .3.921793 l .8 2022-04-02 2022-04-02 Anesthesia David Nation 1.2.840.1 1 [id number] Methodi 08:07:00 13:28:00 Event Catherine Escobar 64125.1.[address] 3.430.2.7 Hospit a .3.905827 l .8 2022-04-02 2022-04-02 Surgery Murphy Rosa 1.2.840.1 [id number] 21 [id number] Methodi 08:00:00 13:15:[address] 3.430.2.7 Hospit a .3.643189 l .8 2022-04-02 2022-04-02 Orders uMrphy Roas 1.2.840.1 [id number] 21 [id number] Methodi 00:00:00 00:00:00 Only Fox 62410.1.[address] 3.430.2.7 Hospit a .3.298579 l .8 2022-04-02 2022-04-02 Travel 1.2.840.1 1.2.574.362 5853 187433 Methodi 00:00:00 00:00:[address] 3.430.2.7 0.2.7.3.698 Ho spita .3.319332 084.8 l .8 2022-03-31 2022-03-31 Outpatient FOG_Dieter_ AOSM AOSM 630 9955-20 Leslee 05:46:00 05:46:00 Oscar 735694 Ortho pe dic Sports Medicin e 2022-03-21 2022-03-21 Pre-Admiss Murphy Rosa 1.2.840.1 [id number] Methodi 09:30:00 10:30:00 ion Fox 80302.1.[address] Testing 3.430.2.7 Hospit a .3.684667 l .8 2022-03-21 2022-03-21 Travel 1.2.840.1 1.2.898.100 9826 011271 Methodi 00:00:00 00:00:[address] 3.430.2.7 0.2.7.3.698 Ho spita .3.398631 084.8 l .8 2022-03-07 2022-03-07 Documentat Provider, 1.2.840.1 [id number] 2 [id number] Methodi 00:00:00 00:00:00 ion Zakiya 42813.1.[address] 3.430.2.7 Hospit a .3.081860 l .8 2022-02-25 2022-02-25 [facility] Murphy Rosa 1.2.840.1 [id number] 2 [id number] Methodi 13:04:36 23:59:00 Encounter Fox 91875.1.[address] 3.430.2.7 Hospit a .3.114772 l .8 2022-02-25 2022-02-25 Office Murphy Rosa 1.2.840.1 [id number] 21 [id number] Methodi 14:30:00 15:02:07 Visit Fox 40999.1.[address] 3.430.2.7 Hospit a .3.727122 l .8 2022-02-25 2022-02-25 Travel 1.2.840.1 1.2.599.244 8488 251513 Methodi 00:00:00 00:00:[address] 3.430.2.7 0.2.7.3.698 Ho spita .3.938764 084.8 l .8 2022-02-25 2022-02-25 [facility] Murphy Rosa 1.2.840.1 [id number] 21 [id number] Methodi 00:00:00 00:00:00 Only Fox 21523.1.[address] 3.430.2.7 Hospit a .3.542390 l .8 2022-02-18 2022-02-18 Travel 1.2.840.1 1.2.257.751 7242 707175 Methodi 00:00:00 00:00:[address] 3.430.2.7 0.2.7.3.698 Ho spita .3.354481 084.8 l .8 2022-02-11 2022-02-11 Outpatient FOG_Dieter_ AOSM AO 630 9955-20 Leslee 04:01:00 04:01:00 Chris_LO 447677 Ortho pe dic Sports Medicin e 2022-02-05 2022-02-05 Travel 1.2.840.1 1.2.651.674 8604 742610 Methodi 00:00:00 00:00:[address] 3.430.2.7 0.2.7.3.698 Ho spita .3.830563 084.8 l .8 2022-02-03 2022-02-04 [facility] Murphy Rosa 1.2.840.1 [id number] 2 [id number] Methodi 05:12:00 16:10:00 Hyun Braxton 46731.1.[address] 3.430.2.7 Hospit a .3.047333 l .8 2022-02-04 2022-02-04 Drake EVANS [place] - Ortho [id number] 4 Leslee 00:00:00 00:00:00 Kirsten Encinas - Eze lozano CO: 6565 FOG_Bracing dic Mariel _[facility] [place] [address] , Ph. 2022-02-04 2022-02-04 Outpatient JennSTEPHANE gilbert [id number] a-e 00:00:00 00:00:00 Drake [id number]-9 [id number] 2022-02-03 2022-02-03 Surgery Murphy Rosa 1.2.840.1 [id number] 21 [id number] Methodi 07:30:00 12:05:[address] 3.430.2.7 Hospit a .3.663501 l .8 2022-02-03 2022-02-03 Anesthesia Donald Bell 1.2.840 .1 [id number] Methodi 07:27:00 11:17:00 Event Rocky MitchBernice 21177.1.[address] 3.430.2.7 Hospit a .3.398535 l .8 2022-02-03 2022-02-03 Travel 1.2.840.1 1.2.659.658 8371 531315 Methodi 00:00:00 00:00:[address] 3.430.2.7 0.2.7.3.698 Ho spita .3.458842 084.8 l .8 2022-01-20 2022-01-20 Pre-Admiss Murphy Rosa 1.2.840.1 [id number] Methodi 13:10:00 14:10:00 ion Fox 04070.1.[address] Testing 3.430.2.7 Hospit a .3.078490 l .8 2022-01-20 2022-01-20 Travel 1.2.840.1 1.2.648.158 1892 046483 Methodi 00:00:00 00:00:[address] 3.430.2.7 0.2.7.3.698 Ho spita .3.208892 084.8 l .8 2022-01-02 2022-01-02 [facility] Murphy Rosa 1.2.840.1 [id number] 2 [id number] Methodi 13:30:16 23:59:00 Encounter Fox 13150.1.[address] 3.430.2.7 Hospit a .3.926831 l .8 2022-01-02 2022-01-02 [facility] Murphy Rosa 1.2.840.1 [id number] 2 [id number] Methodi 13:30:00 13:30:00 Encounter Fox 60537.1.[address] 3.430.2.7 Hospit a .3.605541 l .8 2022-01-02 2022-01-02 [facility] Murphy Rsoa 1.2.840.1 [id number] 2 [id number] Methodi 12:30:00 13:29:00 Encounter Fox 22192.1.[address] 3.430.2.7 Hospit a .3.081747 l .8 2022-01-02 2022-01-02 [facility] Murphy Rosa 1.2.840.1 [id number] 2 [id number] Methodi 12:15:00 12:29:00 Encounter Fox 17327.1.[address] 3.430.2.7 Hospit a .3.649074 l .8 2022-01-02 2022-01-02 [facility] Murphy Rosa 1.2.840.1 [id number] 2 [id number] Methodi 12:00:00 12:14:00 Encounter Fox 19974.1.[address] 3.430.2.7 Hospit a .3.517062 l .8 2022-01-02 2022-01-02 Travel 1.2.840.1 1.2.994.612 7591 492660 Methodi 00:00:00 00:00:[address] 3.430.2.7 0.2.7.3.698 Ho spita .3.824551 084.8 l .8 2021-12-23 2021-12-23 Travel 1.2.840.1 1.2.512.613 6884 042748 Methodi 00:00:00 00:00:[address] 3.430.2.7 0.2.7.3.698 Ho spita .3.599412 084.8 l .8 2021-12-20 2021-12-20 [facility].1 [id number] 2 [id number] Methodi 09:56:52 23:59:00 Encounter Fox 21675.1.[address] 3.430.2.7 Hospit a .3.392944 l .8 2021-12-20 2021-12-20 Office Murphy Rosa 1.2.840.1 [id number] 21 [id number] Methodi 10:00:00 11:00:44 Visit Fox 23329.1.[address] 3.430.2.7 Hospit a .3.094291 l .8 2021-12-20 2021-12-20 [facility] Murphy Rosa 1.2.840.1 [id number] 2 [id number] Methodi 09:54:24 09:55:00 Encounter Fox 36908.1.[address] 3.430.2.7 Hospit a .3.341037 l .8 2021-12-20 2021-12-20 Travel 1.2.840.1 1.2.164.091 7709 301838 Methodi 00:00:00 00:00:[address] 3.430.2.7 0.2.7.3.698 Ho spita .3.504697 084.8 l .8 2021-12-04 2021-12-04 Travel 1.2.840.1 1.2.774.274 8333 440874 Methodi 00:00:00 00:00:[address] 3.430.2.7 0.2.7.3.698 Ho spita .3.251588 084.8 l .8 2021-05-09 2021-05-09 Outpatient Jermaine WEINBERG [facility] [id number] 074 Univers 15:30:00 15:30:00 ELVIA altamirano [facility] 2021-05-09 2021-05-09 Nurse Therapy, Adc Covid Infusion [facility] 1.2.840.114 [id number] [facility] 14:24:43 15:24:43 Visit Elvia Weinberg 350.1.13.10 adarsh [place] [id number] [facility] 053 Branch 2021-05-09 2021-05-09 Orders Doctor MOISÉS 1.2.840.114 [id number] Univers 00:00:00 00:00:00 Only Unassigned, JUVENCIO 350.1.13.10 ity of [place] [facility] 4.2.7.2.686 Erik as [phone] [place] [address] Branch 2020-12-19 2020-12-19 Appointmen TOSHA COREA Rheumatolog 716 [id number] [place] 15:30:00 15:30:00 t; MARIBELL COREA y Phy Tobi Chao M.D. 2020-09-21 2020-09-21 Appointmen TOSHA COREA Rheumatolog 714 [id number] [place] 13:30:00 13:30:00 t; MARIBELL COREA y PhTobi Cai M.D. 2020-06-27 2020-06-27 Appointmen TOSHA COREA Rheumatolog [id number] [id number] [place] 15:00:00 15:00:00 t; MARIBELL COREA y Phy Tobi Chao M.D. 2019-12-07 2019-12-07 Appointmen TOSHA COREA Rheumatolog 591 [id number] [place] 15:00:00 15:00:00 t; MARIBELL COREA y Phy Tobi Chao M.D. 2019-08-08 2019-08-08 Appointmen TOSHA COREA Rheumatolog 551 [id number] [place] 13:30:00 13:30:00 t; MARIBELL COREA y PhTobi Cai M.D. 2019 2019-05-27 Outside nullFlavo MNA [id number] Memoria 19:28:42 04:59:59 Medical r Neurology 01 l Records Yung Menonann 2019 2019-05-27 Outside nullFlavo MNA [id number] 55 Memoria 19:28:42 04:59:59 Medical r Neurology 01 l Records [place] 2019 2019-05-26 Outpatient MHMISCHER MISCHER [id number] 14:28:42 23:59:59 2019-05-20 2019-05-21 Outpatient nullFlavo MNA [id number] Memoria 20:45:00 04:59:59 r Neurology 01 l Yung Navarro 2019-05-20 2019-05-21 Outpatient nullFlavo MNA [id number] Memoria 20:45:00 04:59:59 r Neurology 01 l Yung Navarro 2019-05-20 2019-05-20 Outpatient AJ Shah MHMISCHER [id number] 15:45:00 23:59:59 Ashish Noa Phillips 2019-05-20 2019-05-20 Outpatient MHIE MHIE [id number] Memoria 15:45:00 15:45:00 01 merry [place] 2019-03-30 2019-03-30 Appointmen TOSHA COREA Rheumatolog [id number] [place] 13:30:00 13:30:00 t; MARIBELL COREA y Phy sici JAMMIE, M.D. ans M.D. 2018-11-23 2018-11-23 Appointmen TOSHA COREA Rheumatolog 467 [id number] [place] 10:30:00 10:30:00 t; MARIBELL COREA y Phy sici JAMMIE, M.D. ans M.D. 2018-09-02 2018-09-04 Outside nullFlavo MNA [id number] Memoria 22:39:00 05:59:59 Medical r Neurology 00 l Records Yung Navarro 2018-09-02 2018-09-04 Outside nullFlavo MNA [id number] 55 Memoria 22:39:00 05:59:59 Medical r Neurology 00 l Records Yung Navarro 2018-09-02 2018-09-03 Outpatient MISCHER MISCHER [id number] 16:39:00 23:59:59 00 2018-07-07 2018-07-07 Day nullFlavo [facility] [id number] 075 Memoria 13:00:00 13:00:00 Surgery r [place] 00 l [facility] 2018-07-07 2018-07-07 Day nullFlavo [facility] [id number] 075 Memoria 13:00:00 13:00:00 Surgery r [place] 00 l [facility] 2018-07-07 2018-07-07 Outpatient Bonnen, MHSE MHSE [id number] 08:00:00 08:00:00 Lamberto 00 Matt 2018-06-25 2018-06-26 Outpatient nullFlavo MNA [id number] Memoria 20:45:00 04:59:59 r Neurology 00 l Yung Navarro 2018-06-25 2018-06-26 Outpatient nullFlavo MNA [id number] Memoria 20:45:00 04:59:59 r Neurology 00 l [place] 2018-06-25 2018-06-25 [facility] [id number] 15:45:00 23:59:59 Ashish 00 Alan 2018-06-25 2018-06-25 Outpatient MHIE MHIE [id number] Memoria 15:45:00 15:45:00 00 l [place] 2018-03-03 [facility] Rheumatolog [id number] [place] 15:30:00 15:30:00 t; MARIBELL COREA y Phy sici JAMMIE, M.D. ans M.D. 2017-10-14 2017-10-14 [facility] NA[facility]OMY[facility] UTP [id number] [place] 14:30:00 14:30:00 t; MARIBELL COREA Phy sici JAMMIE, M.D. ans M.D. 2017-06-24 2017-06-24 [facility] UTP [id number] [place] 14:00:00 14:00:00 t; MARIBELL COREA Phy sici JAMMIE, M.D. ans M.D. 2016-12-23 2016-12-23 [facility] TOSHA HOGAN UTP [id number] [place] 10:00:00 10:00:00 t; NIKITA HOGAN M.D. P hysici THY, M.D. ans 2016-12-03 2016-12-03 [facility] TOSHA [facility]OREA UTP [id number] [place] 15:30:00 15:30:00 t; MARIBELL COREA Phy sici JAMMIE, M.D. ans M.D. 2016-11-28 2016-11-[address] [facility] [id number] Memoria 20:55:00 04:59:00 Services r Outpatient 01 l Imaging - Elder n [facility] 2016-11-28 2016-11-[address] [facility] [id number] Memoria 20:55:00 04:59:00 Services r Outpatient 01 l Imaging Ashlie Friedman n [facility] 2016-11-28 2016-11-28 Outpatient Nikita Hogan MH35 MH35 815 [id number] 15:55:00 23:59:00 [place] 2016-11-24 2016-11-24 [facility] [id number] [place] 11:00:00 11:00:00 t; NIKITA HOGAN M.D. P hysici THY, M.D. [facility] 2016-08-05 2016-08-05 [facility] NAHOMY [facility] [id number] [place] 10:00:00 10:00:00 t; MARIBELL COREA Phy sici JAMMIE, M.D. ans M.D. 2016-03-18 2016-03-18 [facility] [id number] [place] 10:00:00 10:00:00 t; MARIBELL COREA Phy sici JAMMIE, M.D. ans M.D. 2014-09-25 2014-09-[address] [facility] [id number] Memoria 18:54:00 05:59:00 Services r Outpatient 00 l Imaging [facility] 2014-09-25 2014-09-[address] [facility] [id number] Memoria 18:54:00 05:59:00 Services r Outpatient 00 l Imaging [place] 2014-09-25 2014-09-25 Outpatient Nikita Hogan 2.16.840. 2.16.840. 1. [id number] 12:54:00 23:59:00 [place] 1.960211. 257511.3.61 00 3.615.0.1 5.0.101 01 Results Test Description Test Time Test Comments Results Result Comments Source Surgical pathology request 2022-04-04 15:29:31 Test Item Value Reference Range Interpretation Comme nts Case number (test code = 8455648) [id number] Surgical pathology report (test code = See link below for PDF Lab R eport 2255) Result status (test code = 3283996) This is Final Report for [id number] [id number] [facility] pathology [id number] 15:29:31 Test Item Value Reference Range Interpretation Comments Case number (test code = [id number]) Surgical pathology See link below for report (test code = PDF Lab Report 2255) Result status (test code This is Final Report = [id number]) for [id number] [facility] [id number] 17:57:00 Test Item Value Reference Range Interpretation Comments Urine culture (test SEE COMMENT Bacteriu magali screen code = 6600119) negative. [facility] [id number] 17:57:00 Test Item Value Reference Range Interpretation Comments Urine culture (test SEE COMMENT Bacteriu magali screen code = 4862550) negative. [facility] Pre/Post [id number] 20:29:06 Test Item Value Reference Range Interpretation Comments Ventricular rate (test 64 code = 253) Atrial rate (test code = 64 255) KS interval (test code = 174 266) QRSD [...] Lopes MD ([id number]) on 01/21/2022 3:29:03 PM [facility] Pre/Post [id number] 20:29:06 Test Item Value Reference Range Interpretation Comments Ventricular rate (test 64 code = 253) Atrial rate (test code = 64 255) KS interval (test code = 174 266) QRSD [...] available-Electronica lly Signed By Sidney Lopes MD ([id number]) on 01/21/2022 3:29:03 PM [facility][] CMP [id number] 16:46:00 Test Item Value Reference Range Interpretation [...] NON-AFR. 92 {ML/MIN/1.7} See_Comment N [Automated message] [place] (test The system ich code = eGFR generated this result NON-AFR. transmitted ref erence [place]) range: > OR = 6 0. The reference range was not used to int erpret this result as normal/abnormal . eGFR 107 {ML/MIN/1.7} See_Comment N [Automated message] [place] (test The system ich code = eGFR [...] mg/dl 0.2-1.2 N Normal (test code = 90026-2) ALKALINE 58 u/l 37-153 N PHOSPHATASE (test code = ALKALINE PHOSPHATASE) AST; Normal (test 22 u/l 10-35 N code = 1916-6) ALT; Normal (test 22 u/l 6-29 N code = 1742-6) [facility][QL] SED RATE BY MODIFIED [id number] 16:46:00 Test Item Value Reference Range Interpretation Comments SED RATE BY MODIFIED 2 mm/h See_Comment N [Autom ated message] The WESTERGR[employer] (test code = syst em which generated SED RATE BY MODIFIED this re sult transmitted [employer]) reference range : < OR = 30. The referen ce range was not used to interpret this result as normal/abnormal . [facility][QL] CBC (INCLUDES DIFF/PLT)2020-12-19 16:46:00 Test Item Value Reference Range Interpretation Comments WHITE BLOOD CELL COUNT 5.6 {Thousand/u} 3.8-10.8 N (test code = WHITE BLOOD CELL COUNT) RED BLOOD CELL COUNT (test 4.18 {Million/uL} 3.80-5.10 N code = RED BLOOD CELL COUNT) HEMOGLOBIN; Normal (test 12.7 g/dl 11.7-15.5 N code = 28185-9) HEMATOCRIT; Normal (test 38.0 % 35.0-45.0 N code = 4544-3) MCV; Normal (test code = 90.9 fL 80.0-100.0 N 787-2) MCHC; Normal (test code = 33.4 g/dl 32.0-36.0 N 02125-0) RDW; Normal (test code = 13.4 % 11.0-15.0 N 788-0) PLATELET COUNT; Normal 302 {Thousand/u} 140-400 N (test code = 777-3) MPV; Normal (test code = 10.3 fL 7.5-12.5 N 28632-0) ABSOLUTE NEUTROPHILS (test 1411 {cells/uL} 9635-7647 code = ABSOLUTE NEUTROPHILS) ABSOLUTE LYMPHOCYTES (test [...] Normal (test 14.6 % N code = 20918-9) EOSINOPHILS; Normal (test 2.5 % N code = 88262-5) BASOPHILS; Normal (test 1.1 % N code = 30040-3) [facility][QL] C-REACTIVE [id number] 16:46:00 Test Item Value Reference Range Interpretation Comments C-REACTIVE PROTEIN (test code = 1.0 mg/L <8.0 N C-REACTIVE PROTEIN) [facility][QL] CMP [id number] 16:15:00 Test Item Value Reference Range Interpretation Comments GLUCOSE; Normal 97 mg/dl 65-99 N Fasting refe rence (test code = interval 1547-9) UREA NITROGEN 13 mg/dl 7-25 N (BUN) (test code = UREA NITROGEN (BUN)) CREATININE (test 0.78 mg/dl 0.50-1.05 N For patient s >49 years code = of age, the ref erence CREATININE) limitfor [facility] is approximately 1 3% higher for peopleidentifie d as -Arlet n. eGFR NON-AFR. 88 {ML/MIN/1.7} > OR = 60 N [place] (test code = eGFR NON-AFR. [place]) eGFR 102 {ML/MIN/1.7} > OR = 60 N [place] (test code = eGFR ) BUN/CREATININE NOT [...] mg/dl 0.2-1.2 N Normal (test code = 66158-7) ALKALINE 71 u/l 37-153 N PHOSPHATASE (test code = ALKALINE PHOSPHATASE) AST; Normal (test 24 u/l 10-35 N code = 1916-6) ALT; Normal (test 22 u/l 6-29 N code = 1742-6) [facility][QL] SED RATE BY MODIFIED [id number] 16:15:00 Test Item Value Reference Range Interpretation Comments SED RATE BY MODIFIED WE[place]GR[place] (test 2 mm/h < OR = 30 N code = SED RATE BY MODIFIED WE[place]GR[place]) [facility][QL] CBC (INCLUDES DIFF/PLT)2020-07-31 16:15:00 Test Item Value Reference Range Interpretation Comments WHITE BLOOD CELL COUNT 7.0 {Thousand/u} 3.8-10.8 N (test code = WHITE BLOOD CELL COUNT) RED BLOOD CELL COUNT (test 4.26 {Million/uL} 3.80-5.10 N code = RED BLOOD CELL COUNT) HEMOGLOBIN; Normal (test 12.6 g/dl 11.7-15.5 N code = 74388-1) HEMATOCRIT; Normal (test 39.0 % 35.0-45.0 N code = 4544-3) MCV; Normal (test code = 91.5 fL 80.0-100.0 N 787-2) MCHC; Normal (test code = 32.3 g/dl 32.0-36.0 N 84065-4) RDW; Normal (test code = 12.8 % 11.0-15.0 N 788-0) PLATELET COUNT; Normal 287 {Thousand/u} 140-400 N (test code = 777-3) MPV; Normal (test code = 11.7 fL 7.5-12.5 N 41721-8) ABSOLUTE NEUTROPHILS (test 2142 {cells/uL} 4598-3538 N code = ABSOLUTE NEUTROPHILS) ABSOLUTE LYMPHOCYTES [...] Normal (test 14.4 % N code = 16984-4) EOSINOPHILS; Normal (test 8.6 % N code = 68582-5) BASOPHILS; Normal (test 1.6 % N code = 34756-0) [facility][QL] C-REACTIVE [id number] 16:15:00 Test Item Value Reference Range Interpretation Comments C-REACTIVE PROTEIN (test code = 1.5 mg/L <8.0 N C-REACTIVE PROTEIN) [facility][Q] QUANTIFERON( R)-TB GOLD PLUS, 1 [id number] 16:15:00 Test Item Value Reference Range Interpretation [...] For additional info rmation, please refer [email or web address] [email or web address]/f aq/QTX217(Th is link is laverne shearer provided for informational/e ducational purposes only.) [facility]] CMP [id number] 15:22:00 Test Item Value Reference Range Interpretation [...] 96 {ML/MIN/1.7} > OR = 60 N [place] (test code = eGFR NON-) eGFR 111 {ML/MIN/1.7} > OR = 60 N [place] (test code = eGFR ) BUN/CREATININE NOT [...] mg/dl 0.2-1.2 N Normal (test code = 10267-0) ALKALINE 72 u/l 33-130 N PHSPHATASE (test code = ALKALINE PHSPHATASE) AST; Normal (test 18 u/l 10-35 N code = 1916-6) ALT; Normal (test 25 u/l 6-29 N code = 1742-6) [facility]] SED RATE BY MODIFIED [id number] 15:22:00 Test Item Value Reference Range Interpretation Comments SED RATE BY MODIFIED WESTERGREN (test 2 mm/h < OR = 20 N code = SED RATE BY MODIFIED WESTERGREN) [facility]] CBC (INCLUDES DIFF/PLT)2019-08-08 15:22:00 Test Item Value Reference Range Interpretation Comments WHITE BLOOD CELL COUNT 6.3 {Thousand/u} 3.8-10.8 N (test code = WHITE BLOOD CELL COUNT) RED BLOOD CELL COUNT (test 4.37 {Million/uL} 3.80-5.10 N code = RED BLOOD CELL COUNT) HEMAGLOBIN; Normal (test 12.7 g/dl 11.7-15.5 N code = 39939-3) HEMATOCRIT; Normal (test 39.1 % 35.0-45.0 N code = 4544-3) MCV; Normal (test code = 89.5 fL 80.0-100.0 N 787-2) MCHC; Normal (test code = 32.5 g/dl 32.0-36.0 N 96757-9) RDW; Normal (test code = 12.6 % 11.0-15.0 N 788-0) PLATELET COUNT; Normal 318 {Thousand/u} 140-400 N (test code = 777-3) MPV; Normal (test code = 10.1 fL 7.5-12.5 N 38391-0) ABSOLUTE NEUTROPHILS (test 2652 {cells/uL} 7725-6088 N code = ABSOLUTE NEUTROPHILS) ABSOLUTE LYMPHOCYTES [...] Normal (test 12.3 % N code = 74521-5) EOSINOPHILS; Normal (test 1.9 % N code = 20122-4) BASOPHILS; Normal (test 1.3 % N code = 11348-6) [facility]] C-REACTIVE [id number] 15:22:00 Test Item Value Reference Range Interpretation Comments C-REACTIVE PROTEIN (test code = 1.5 mg/L <8.0 N C-REACTIVE PROTEIN) [facility]] CMP [id number] 13:58:00 Test Item Value Reference Range Interpretation Comments GLUCOSE; Normal 76 mg/dl 65-139 N Non-fasting (test code = reference inter ananya 1547-9) UREA NITROGEN (BUN) 13 mg/dl 7-25 N (test code = UREA NITROGEN (BUN)) CREATININE (test 0.70 mg/dl 0.50-1.10 N code = CREATININE) eGFR NON- 102 {ML/MIN/1.7} > OR = 60 N [place] (test code = eGFR NON-) eGFR 118 {ML/MIN/1.7} > OR = 60 N [place] (test code = eGFR ) BUN/CREATININE NOT [...] mg/dl 0.2-1.2 N Normal (test code = 62384-9) ALKALINE PHSPHATASE 83 u/l 33-115 N (test code = ALKALINE PHSPHATASE) AST; Normal (test 16 u/l 10-35 N code = 1916-6) ALT; Normal (test 15 u/l 6-29 N code = 1742-6) [facility]] SED RATE BY MODIFIED [id number] 13:58:00 Test Item Value Reference Range Interpretation Comments SED RATE BY MODIFIED WESTERGREN (test 2 mm/h < OR = 20 N code = SED RATE BY MODIFIED WESTERGR[place]) [facility]] CBC (INCLUDES DIFF/PLT)2019-03-30 13:58:00 Test Item Value Reference Range Interpretation Comments WHITE BLOOD CELL COUNT 7.5 {Thousand/u} 3.8-10.8 N (test code = WHITE BLOOD CELL COUNT) RED BLOOD CELL COUNT (test 4.59 {Million/uL} 3.80-5.10 N code = RED BLOOD CELL COUNT) HEMAGLOBIN; Normal (test 13.1 g/dl 11.7-15.5 N code = 59089-6) HEMATOCRIT; Normal (test 40.1 % 35.0-45.0 N code = 4544-3) MCV; Normal (test code = 87.4 fL 80.0-100.0 N 787-2) MCHC; Normal (test code = 32.7 g/dl 32.0-36.0 N 29747-7) RDW; Normal (test code = 12.6 % 11.0-15.0 N 788-0) PLATELET COUNT; Normal 281 {Thousand/u} 140-400 N (test code = 777-3) MPV; Normal (test code = 10.6 fL 7.5-12.5 N 94913-5) ABSOLUTE NEUTROPHILS (test 2888 {cells/uL} 6681-1042 N code = ABSOLUTE NEUTROPHILS) ABSOLUTE LYMPHOCYTES [...] Normal (test 11.7 % N code = 76891-6) EOSINOPHILS; Normal (test 1.5 % N code = 90885-7) BASOPHILS; Normal (test 0.9 % N code = 54953-5) [facility]] C-REACTIVE [id number] 13:58:00 Test Item Value Reference Range Interpretation Comments C-REACTIVE PROTEIN (test code = 2.1 mg/L <8.0 N C-REACTIVE PROTEIN) [facility]] CMP [id number] 11:40:00 Test Item Value Reference Range Interpretation Comments GLUCOSE; Normal 118 mg/dl 65-139 N Non-fasting (test code = reference inter ananya 1547-9) UREA NITROGEN (BUN) 16 mg/dl 7-25 N (test code = UREA NITROGEN (BUN)) CREATININE (test 0.72 mg/dl 0.50-1.10 N code = CREATININE) eGFR NON- 98 {ML/MIN/1.7} > OR = 60 N [place] (test code = eGFR NON-) eGFR 114 {ML/MIN/1.7} > OR = 60 N [place] (test code = eGFR ) BUN/CREATININE NOT [...] mg/dl 0.2-1.2 N Normal (test code = 19699-5) ALKALINE PHSPHATASE 75 u/l 33-115 N (test code = ALKALINE PHSPHATASE) AST; Normal (test 14 u/l 10-35 N code = 1916-6) ALT; Normal (test 20 u/l 6-29 N code = 1742-6) [facility]] SED RATE BY MODIFIED [id number] 11:40:00 Test Item Value Reference Range Interpretation Comments SED RATE BY MODIFIED WESTERGREN (test 2 mm/h < OR = 20 N code = SED RATE BY MODIFIED WESTERGREN) [facility]] CBC (INCLUDES DIFF/PLT)2018-11-23 11:40:00 Test Item Value Reference Range Interpretation Comments WHITE BLOOD CELL COUNT 8.6 {Thousand/u} 3.8-10.8 N (test code = WHITE BLOOD CELL COUNT) RED BLOOD CELL COUNT (test 4.61 {Million/uL} 3.80-5.10 N code = RED BLOOD CELL COUNT) HEMAGLOBIN; Normal (test 13.4 g/dl 11.7-15.5 N code = 88997-3) HEMATOCRIT; Normal (test 41.4 % 35.0-45.0 N code = 4544-3) MCV; Normal (test code = 89.8 fL 80.0-100.0 N 787-2) MCHC; Normal (test code = 32.4 g/dl 32.0-36.0 N 88103-2) RDW; Normal (test code = 13.2 % 11.0-15.0 N 788-0) PLATELET COUNT; Normal 316 {Thousand/u} 140-400 N (test code = 777-3) MPV; Normal (test code = 10.0 fL 7.5-12.5 N 18933-7) ABSOLUTE NEUTROPHILS (test 5495 {cells/uL} 7543-2116 N code = ABSOLUTE NEUTROPHILS) ABSOLUTE LYMPHOCYTES [...] Normal (test 8.7 % N code = 98355-6) EOSINOPHILS; Normal (test 1.4 % N code = 20955-8) BASOPHILS; Normal (test 0.8 % N code = 71232-4) [facility]] C-REACTIVE [id number] 11:40:00 Test Item Value Reference Range Interpretation Comments C-REACTIVE PROTEIN (test code = 2.5 mg/L <8.0 N C-REACTIVE PROTEIN) [facility]] QUANTIFERON( R)-TB GOLD PLUS, 1 [id number] 11:40:00 Test Item Value Reference Range Interpretation [...] For additional info rmation, please refer [email or web address](This link is being p rovided for informational/e ducational purposes only.) [facility]] CMP [id number] 16:35:00 Test Item Value Reference Range Interpretation Comments GLUCOSE; Normal 105 mg/dl 65-139 N Non-fasting (test code = 1547-9) referen ce interval UREA NITROGEN (BUN) 12 mg/dl 7-25 N (test code = UREA NITROGEN (BUN)) CREATININE (test 0.82 mg/dl 0.50-1.10 N code = CREATININE) eGFR NON- 85 {ML/MIN/1.7} > OR = 60 N [place] (test code = eGFR NON-) eGFR 98 {ML/MIN/1.7} > OR = 60 N [place] (test code = eGFR ) BUN/CREATININE RATIO [...] mg/dl 0.2-1.2 N Normal (test code = 13052-7) ALKALINE PHSPHATASE 61 u/l 33-115 N (test code = ALKALINE PHSPHATASE) AST; Normal (test 16 u/l 10-35 N code = 1916-6) ALT; Normal (test 21 u/l 6-29 N code = 1742-6) [facility]] SED RATE BY MODIFIED [id number] 16:35:00 Test Item Value Reference Range Interpretation Comments SED RATE BY MODIFIED LUISERGREN (test 3 mm/h < OR = 20 N code = SED RATE BY MODIFIED LUISERGREN) [facility]] CBC (INCLUDES DIFF/PLT)2018-03-03 16:35:00 Test Item Value Reference Range Interpretation Comments WHITE BLOOD CELL COUNT 7.3 {Thousand/u} 3.8-10.8 N (test code = WHITE BLOOD CELL COUNT) RED BLOOD CELL COUNT (test 4.55 {Million/uL} 3.80-5.10 N code = RED BLOOD CELL COUNT) HEMOGLOBIN; Normal (test 13.4 g/dl 11.7-15.5 N code = 96443-4) HEMATOCRIT; Normal (test 39.8 % 35.0-45.0 N code = 4544-3) MCV; Normal (test code = 87.5 fL 80.0-100.0 N 787-2) MCHC; Normal (test code = 33.7 g/dl 32.0-36.0 N 17564-8) RDW; Normal (test code = 12.8 % 11.0-15.0 N 788-0) PLATELET COUNT; Normal 314 {Thousand/u} 140-400 N (test code = 777-3) MPV; Normal (test code = 9.9 fL 7.5-12.5 N 50498-2) ABSOLUTE NEUTROPHILS (test 5125 {cells/uL} 6509-3129 N code = ABSOLUTE NEUTROPHILS) ABSOLUTE LYMPHOCYTES [...] Normal (test 7.6 % N code = 96955-9) EOSINOPHILS; Normal (test 0.4 % N code = 00697-0) BASOPHILS; Normal (test 1.1 % N code = 04868-3) [facility]] C-REACTIVE [id number] 16:35:00 Test Item Value Reference Range Interpretation Comments C-REACTIVE PROTEIN (test code = 2.5 mg/L <8.0 N C-REACTIVE PROTEIN) [facility]
[2023-06-23] MEDS ORDERED: DIAZEPAM 5 MG TABLET ONE (00:40)
[2023-06-23] MEDS ORDERED: NA CHLORIDE 0.9% 1,000 ML ONE (00:41)
[2023-06-23] MEDS ORDERED: dexAMETHasone 10 MG/ML VIAL ONE (00:41)
[2023-06-23] MEDS ORDERED: ONDANSETRON 4 MG/2 ML VIAL ONE ×2 (00:41→03:23)
[2023-06-23] MEDS ORDERED: MORPHINE 4 MG/ML SYR ONE ×2 (00:41→03:23)
[2023-06-23 01:04] LABS: Absolute Lymphocytes (CBC) 4.7 K/uL (0.7-4.9); Hematocrit 38.7 % (36.0-45.0); Lymphocytes % 43.9 % (15.3-44.8); MCV 90.3 fL (80-100); MPV 7.6 fL (7.6-11.3); Platelets 326 thou/uL (152-406); RBC Red Blood Cell Count 4.29 M/uL (3.86-4.86)
[2023-06-23 01:11] LABS: Protime INR 1.1
[2023-06-23 01:29] LABS: ALT/SGPT 25 U/L (13-56); AST/SGOT 13 U/L (15-37); Albumin 3.5 g/dL (3.4-5.0); Alkaline Phosphatase 71 U/L (45-117); BUN Blood Urea Nitrogen 14 mg/dL (7-18); Bicarbonate 29 mEq/L (21-32); Bilirubin Total 0.3 mg/dL (0.2-1.0); Glomerular Filtration Rate 86 ml/min (=/>90); Glucose Level 159 mg/dL (74-106); Lipase 56 U/L (13-75); Magnesium 2.3 mg/dL (1.6-2.4); NT PRO-BNP 12 pg/mL (<125); Potassium 3.5 mEq/L (3.5-5.1); Protein, Total 7.7 g/dL (6.4-8.2); Sodium Level 140 mEq/L (136-145); Troponin High Sensitivity 4.5 pg/mL (<58.9)
[2023-06-23 01:39] LABS: Bilirubin Direct < 0.1 mg/dL (0-0.2)
[2023-06-23 01:40] LABS: Bilirubin Indirect, Calculated ND mg/dL (0.2-0.8)
--- NOTE | 2023-06-23 03:13 | ER ---
Nurse's Notes [facility] Name: Gaurav Beavers Age: 53 yrs Sex: Female : 1970 Arrival Date: 06/22/2023 Time: 23:16 Bed 17 Private MD: Diagnosis: Low back pain;Strain of muscle and tendon of back wall of thorax;Obesity, unspecified;Rheumatoid arthritis, unspecified;Unspecified symptoms and signs involving the musculoskeletal system Presentation: 06/22 23:24 Chief complaint: Patient states: "For the past few days my back has been hurting, today mb9 it got so bad where I can't lay down, barley walk, or move.". Coronavirus screen: Vaccine status: Patient reports receiving the 2nd dose of the covid vaccine. Ebola Screen: No symptoms or risks identified at this time. Initial Sepsis Screen: Does the patient meet any 2 criteria? No. Patient's initial sepsis screen is negative. Does the patient have a suspected source of infection? No. Patient's initial sepsis screen is negative. Risk Assessment: Do you want to hurt yourself or someone else? Patient reports no desire to harm self or others. Onset of symptoms was June 22, 2023. 23:24 Method Of Arrival: Ambulatory mb9 23:24 Acuity: VENKAT 4 mb9 Triage Assessment: 23:26 General: Appears uncomfortable, Behavior is calm, cooperative. Pain: Complains of pain mb9 in back Pain currently is 10 out of 10 on a pain scale. Quality of pain is described as throbbing, Pain began suddenly, Is continuous, Aggravated by increased activity, repositioning, weight bearing. EENT: No signs and/or symptoms were reported regarding the EENT system. Neuro: [place] Agitation-Sedation Scale (RASS): 0 - Alert and Calm Level of Consciousness is awake, alert, obeys commands, Oriented to person, place, time, situation, Appropriate for age. Cardiovascular: Patient's skin is warm and dry. Respiratory: Airway is patent Respiratory effort is even, unlabored, Respiratory pattern is regular, symmetrical. GI: No signs and/or symptoms were reported involving the gastrointestinal system. : No signs and/or symptoms were reported regarding the genitourinary system. Derm: Skin is pink, warm \\T\\ dry. Musculoskeletal: Range of motion: intact in all extremities. Historical: - Allergies: 23:25 NSAIDS; mb9 - Home Meds: 23:25 bisoprolol-hydrochlorothiazide Oral [Active]; Celebrex 200 mg Oral cap 1 cap 2 times mb9 per day [Active]; Cymbalta 60 mg Oral cpDR 1 cap once daily [Active]; fenofibrate Oral [Active]; gabapentin Oral [Active]; Remicade Injections Q 6 Weeks [Active]; - PMHx: 23:25 Depression; Arthritis; Hypertension; Rheumatoid Arthritis; mb9 - PSHx: 23:25 cervical fusion; Cholecystectomy; lumbar discectomy; mb9 - Immunization history:: Adult Immunizations up to date. - Social history:: Smoking status: Patient denies any tobacco usage or history of. - Family history:: not pertinent. Screenin:[facility] ED Fall Risk Assessment (Adult) History of falling in the last 3 months, km8 including since admission No falls in past 3 months (0 pts) Confusion or Disorientation No (0 pts) Intoxicated or Sedated No (0 pts) Impaired Gait No (0 pts) Mobility Assist Device Used No (0 pt) Altered Elimination No (0 pt) Score/Fall Risk Level 0 - 2 = Low Risk Oriented to surroundings, Maintained a safe environment, Educated pt \\T\\ family on fall prevention, incl call for assistance when getting out of bed, Assessed \\T\\ reinforced patient's understanding of fall precautions. 23:34 Abuse screen: Denies threats or abuse. Denies injuries from another. Nutritional km8 screening: No deficits noted. Tuberculosis screening: No symptoms or risk factors identified. Assessment: 23:34 General: Appears in no apparent distress. uncomfortable, Behavior is calm, cooperative, km8 appropriate for age. Pain: Complains of pain in left subscapular area Pain radiates to right subscapular area Pain currently is 10 out of 10 on a pain scale. Quality of pain is described as sharp, Pain began 2-3 days ago. Is continuous, Alleviated by nothing. Aggravated by repositioning, Noted to be grimacing, resistant to movement, Also complains of nausea. Neuro: No deficits noted. [place] Agitation-Sedation Scale (RASS): 0 - Alert and Calm Level of Consciousness is awake, alert, obeys commands, Oriented to person, place, time, situation, Appropriate for age. Cardiovascular: No deficits noted. Denies chest pain, shortness of breath. Respiratory: No deficits noted. Airway is patent Respiratory effort is even, unlabored, Respiratory pattern is regular, symmetrical. GI: No deficits noted. No signs and/or symptoms were reported involving the gastrointestinal system. : No deficits noted. No signs and/or symptoms were reported regarding the genitourinary system. EENT: No deficits noted. No signs and/or symptoms were reported regarding the EENT system. Derm: No deficits noted. No signs and/or symptoms reported regarding the dermatologic system. Skin is intact, is healthy with good turgor, Skin is dry, Skin is normal, Skin temperature is warm. Musculoskeletal: Reports pain in back. Vital Signs: 23:24 BP 143 / 69; Pulse 71; Resp 16; Temp 97.9; Pulse Ox 100% ; Weight 99.79 kg; Height 5 mb9 ft. 3 in. ; Pain 06/23; 23:39 BP 123 / 67; Pulse 76; Resp 18; Pulse Ox 98% on R/A; Pain 06/23; 8 06/23 00:00 BP 122 / 68; Pulse 77; Resp 17; Pulse Ox 98% on R/A; Pain 06/23; km8 01:00 BP 121 / 66; Pulse 79; Resp 17; Pulse Ox 95% on R/A; Pain 8/; km8 02:00 BP 118 / 70; Pulse 68; Resp 17; Pulse Ox 100% on R/A; km8 02:45 BP 114 / 70; Pulse 70; Resp 18; Pulse Ox 96% on R/A; km8 03:30 Pain 6/10; km8 03:31 BP 112 / 71; Pulse 78; Resp 20; Pulse Ox 95% on R/A; Pain 6/10; 8 06/22 23:24 Body Mass Index 38.97 (99.79 kg, 160.02 cm) [facility] 06/22 23:24 Pain Scale: Adult mb9 23:39 Pain Scale: Adult 8 06/23 00:00 Pain Scale: Adult km8 01:00 Pain Scale: Adult km8 03:30 Pain Scale: Adult km8 03:31 Pain Scale: Adult km8 ED Course: 06/22 23:20 Patient arrived in ED. mbLuz 23:25 Suman Chapin MD is Attending Physician. [facility] 23:25 Triage completed. mb9 23:25 Arm band placed on. mb9 23:34 Patient has correct armband on for positive identification. Bed in low position. Call km8 light in reach. Side rails up X 1. Client placed on continuous cardiac and pulse oximetry monitoring. NIBP monitoring applied. Door closed. Noise minimized. Family accompanied patient. 23:34 Patient maintains SpO2 saturation greater than 95% on room air. 06/23 00:29 XRAY Chest (1 view) In Process Unspecified. EDMS 00:39 Basic Metabolic Panel Sent. 8 00:39 CBC with Diff Sent. 00:39 LFT's Sent. 8 00:39 Magnesium Sent. 00:39 NT PRO-BNP Sent. 00:39 PT-INR Sent. 00:39 Troponin HS Sent. 00:39 Lipase Sent. 8 02:12 CT Aorta for Dissection In Process Unspecified. EDMS 02:55 Urinalysis w/ reflexes Sent. km8 03:31 No provider procedures requiring assistance completed. IV discontinued, intact, bleeding controlled, No redness/swelling at site. Pressure dressing applied. Administered Medications: 00:38 Drug: Ondansetron IVP 4 mg IVP once; over 2 minutes Route: IVP; Site: right antecubital; 01:35 Follow up: Response: No adverse reaction 00:38 Drug: Decadron - Dexamethasone IVP 10 mg IVP once Route: IVP; Site: right antecubital; 01:35 Follow up: Response: No adverse reaction; Pain is decreased 00:39 Drug: NS 0.9% IV 1000 ml IV at 1 bolus Per protocol; 1000 mL bolus Route: IV; Rate: 1 km8 bolus; Site: right antecubital; 02:15 Follow up: Response: No adverse reaction; IV Status: Completed infusion; IV Intake: 8 1000ml 00:39 Drug: Diazepam PO 10 mg PO once Route: PO; 01:45 Follow up: Response: No adverse reaction; Pain is decreased; RASS: Alert and Calm (0) 00:39 Drug: morphine IVP or IV 4 mg IVP once over 4 mins Route: IVP; Infused Over: 4 mins; Site: right antecubital; 01:20 Follow up: Response: No adverse reaction; Pain is decreased; RASS: Alert and Calm (0) km8 03:14 Drug: morphine IVP or IV 4 mg IVP once over 4 mins Route: IVP; Infused Over: 4 mins; km8 Site: right antecubital; 03:30 Follow up: Pain 6/10 Adult km8 03:31 Follow up: Response: No adverse reaction; Pain is decreased; RASS: Alert and Calm (0) km8 03:14 Drug: Ondansetron IVP 4 mg IVP once; over 2 minutes Route: IVP; Site: right antecubital;km8 03:30 Follow up: Response: No adverse reaction km8 Medication: 03:32 VIS not applicable for this client. km8 Intake: 02:15 IV: 1000ml; Total: 1000ml. km8 Outcome: 03:12 Discharge ordered by . thelma 03:31 Discharged to home ambulatory, with family, km8 03:31 Condition: good 03:31 Discharge instructions given to patient, family, Instructed on discharge instructions, follow up and referral plans. medication usage, Demonstrated understanding of instructions, follow-up care, medications, Prescriptions given X 3, 03:32 Patient left the ED. km8 Signatures: Dispatcher [employer] EDSuman Colby MD MD cha Breneman, Bing Arguelles, RN RN mb9 Ana Chaudhry RN RN km8
--- NOTE | 2023-06-23 03:13 | EDPHYS ---
Physician Documentation [facility] Name: Gaurav Beavers Age: 53 yrs Sex: Female : 1970 Arrival Date: 06/22/2023 Time: 23:16 Bed 17 Private MD: BRANDY Physician Suman Chapin HPI: 06/23 00:16 This 53 yrs old Female presents to ER via Ambulatory with complaints of BACK thelma PAIN , CHEST PAIN. 00:16 The patient presents with abdominal pain in the upper abdomen. Onset: The thelma symptoms/episode began/occurred 2 day(s) ago. The patient presents with pain that is acute, with no known mechanism of injury. The symptoms are located in the left mid back and right mid back. Onset: The symptoms/episode began/occurred 2 day(s) ago. The pain radiates to the left mid back and right mid back. Associated signs and symptoms: Pertinent positives: nausea. The problem was sustained from unknown cause. Modifying factors: The patient symptoms are alleviated by nothing, the patient symptoms are aggravated by any movement, coughing, standing. Severity of symptoms: At their worst the symptoms were moderate, in the emergency department the symptoms are unchanged. Historical: - Allergies: 06/22 23:25 NSAIDS; mb9 - Home Meds: 23:25 bisoprolol-hydrochlorothiazide Oral [Active]; Celebrex 200 mg Oral cap 1 cap 2 times mb9 per day [Active]; Cymbalta 60 mg Oral cpDR 1 cap once daily [Active]; fenofibrate Oral [Active]; gabapentin Oral [Active]; Remicade Injections Q 6 Weeks [Active]; - PMHx: 23:25 Depression; Arthritis; Hypertension; Rheumatoid Arthritis; mb9 - PSHx: 23:25 cervical fusion; Cholecystectomy; lumbar discectomy; mb9 - Immunization history:: Adult Immunizations up to date. - Social history:: Smoking status: Patient denies any tobacco usage or history of. - Family history:: not pertinent. ROS: 06/23 00:16 Constitutional: Negative for fever, chills, and weight loss, Eyes: Negative for injury, thelma pain, redness, and discharge, ENT: Negative for injury, pain, and discharge, Neck: Negative for injury, pain, and swelling, Cardiovascular: Negative for chest pain, palpitations, and edema, Respiratory: Negative for shortness of breath, cough, wheezing, and pleuritic chest pain, Abdomen/GI: Negative for abdominal pain, nausea, vomiting, diarrhea, and constipation, : Negative for injury, bleeding, discharge, and swelling, MS/Extremity: Negative for injury and deformity, Skin: Negative for injury, rash, and discoloration, Neuro: Negative for headache, weakness, numbness, tingling, and seizure, Psych: Negative for depression, anxiety, suicide ideation, homicidal ideation, and hallucinations, Allergy/Immunology: Negative for hives, rash, and allergies, Endocrine: Negative for neck swelling, polydipsia, polyuria, polyphagia, and marked weight changes, Hematologic/Lymphatic: Negative for swollen nodes, abnormal bleeding, and unusual bruising, Back: Positive for injury or acute deformity, Exam: 00:16 Constitutional: This is a well developed, well nourished patient who is awake, alert, thelma and in no acute distress. Head/Face: Normocephalic, atraumatic. Eyes: Pupils equal round and reactive to light, extra-ocular motions intact. Lids and lashes normal. Conjunctiva and sclera are non-icteric and not injected. Cornea within normal limits. Periorbital areas with no swelling, redness, or edema. ENT: Nares patent. No nasal discharge, no septal abnormalities noted. Tympanic membranes are normal and external auditory canals are clear. Oropharynx with no redness, swelling, or masses, exudates, or evidence of obstruction, uvula midline. Mucous membranes moist. Neck: Trachea midline, no thyromegaly or masses palpated, and no cervical lymphadenopathy. Supple, full range of motion without nuchal rigidity, or vertebral point tenderness. No Meningismus. Chest/axilla: Normal chest wall appearance and motion. Nontender with no deformity. No lesions are appreciated. Cardiovascular: Regular rate and rhythm with a normal S1 and S2. No gallops, murmurs, or rubs. Normal PMI, no JVD. No pulse deficits. Respiratory: Lungs have equal breath sounds bilaterally, clear to auscultation and percussion. No rales, rhonchi or wheezes noted. No increased work of breathing, no retractions or nasal flaring. Abdomen/GI: Soft, non-tender, with normal bowel sounds. No distension or tympany. No guarding or rebound. No evidence of tenderness throughout. Skin: Warm, dry with normal turgor. Normal color with no rashes, no lesions, and no evidence of cellulitis. MS/ Extremity: Pulses equal, no cyanosis. Neurovascular intact. Full, normal range of motion. Neuro: Awake and alert, GCS 15, oriented to person, place, time, and situation. Cranial nerves II-XII grossly intact. Motor strength 5/5 in all extremities. Sensory grossly intact. Cerebellar exam normal. Normal gait. 00:16 Back: pain, that is moderate, ROM is painful, with all movement, normal spinal alignment noted, CVA tenderness, is absent, vertebral tenderness, is not appreciated, 00:46 ECG was reviewed by the Attending Physician. [facility] 03:10 Abdomen/GI: Inspection: abdomen appears normal, Bowel sounds: normal, Palpation: [facility] abdomen is soft and non-tender, in all quadrants, in the NO RIGHT LOWER QUADRANT PAIN, NO EVIDENCE OF APPY, Vital Signs: 06/22 23:24 BP 143 / 69; Pulse 71; Resp 16; Temp 97.9; Pulse Ox 100% ; Weight 99.79 kg; Height 5 mb9 ft. 3 in. ; Pain 06/23; 23:39 BP 123 / 67; Pulse 76; Resp 18; Pulse Ox 98% on R/A; Pain 10; 8 06/23 00:00 BP 122 / 68; Pulse 77; Resp 17; Pulse Ox 98% on R/A; Pain 06/23; km8 01:00 BP 121 / 66; Pulse 79; Resp 17; Pulse Ox 95% on R/A; Pain 8/; km8 02:00 BP 118 / 70; Pulse 68; Resp 17; Pulse Ox 100% on R/A; km8 02:45 BP 114 / 70; Pulse 70; Resp 18; Pulse Ox 96% on R/A; km8 03:30 Pain 6/; km8 03:31 BP 112 / 71; Pulse 78; Resp 20; Pulse Ox 95% on R/A; Pain 02/21; km8 06/22 23:24 Body Mass Index 38.97 (99.79 kg, 160.02 cm) [facility] 06/22 23:24 Pain Scale: Adult [facility] 23:39 Pain Scale: Adult 8 06/23 00:00 Pain Scale: Adult 8 01:00 Pain Scale: Adult km8 03:30 Pain Scale: Adult km8 03:31 Pain Scale: Adult km8 MDM: 06/22 23:25 Patient medically screened. [facility] 06/23 00:19 Differential diagnosis: Cholelithiasis chronic back pain, Fracture Hydronephrosis thelma Osteoarthritis Osteomalacia Osteoporosis Pyelonephritis Renal Infarction ruptured disc, sprain, Ureterolithiasis Cholelithiasis, non-specific abd pain. Data reviewed: vital signs, nurses notes, lab test result(s), EKG, radiologic studies, plain films. Consideration of Admission/Observation Escalation of care including admission/observation considered. I considered the following discharge prescriptions or medication management in the emergency department Medications were administered in the Emergency Department. See MAR. Test considered but Not performed: MRI: NO MRI SPINE. Care significantly affected by the following chronic conditions: Hypertension, DEPRESSION, OA, RA. 06/23 00:16 Order name: Basic Metabolic Panel; Complete Time: 01:53 [facility] 06/23 00:16 Order name: CBC with Diff; Complete Time: 01:53 [facility] 06/23 00:16 Order name: LFT's; Complete Time: 01:53 [facility] 06/23 00:16 Order name: Magnesium; Complete Time: 01:53 [facility] 06/23 00:16 Order name: NT PRO-BNP; Complete Time: :53 [facility] 06/23 00:16 Order name: PT-INR; Complete Time: :53 [facility] 06/23 00:16 Order name: Troponin HS; Complete Time: 01:53 [facility] 06/23 00:16 Order name: Urinalysis w/ reflexes [facility] 06/23 00:16 Order name: Lipase; Complete Time: 01:53 [facility] 06/23 00:16 Order name: XRAY Chest (1 view) [facility] 06/23 00:16 Order name: CT Aorta for Dissection [facility] 06/23 00:16 Order name: EKG; Complete Time: 00:17 [facility] 06/23 00:16 Order name: Cardiac monitoring; Complete Time: 00:41 [facility] 06/23 00:16 Order name: EKG - Nurse/Tech; Complete Time: 00:41 [facility] 06/23 00:16 Order name: IV Saline Lock; Complete Time: 00:39 [facility] 06/23 00:16 Order name: Labs collected and sent; Complete Time: 00:39 [facility] 06/23 00:16 Order name: O2 Per Protocol; Complete Time: 00:39 thelma 06/23 00:16 Order name: O2 Sat Monitoring; Complete Time: :39 thelma EC:46 Rate is 73 beats/min. Rhythm is regular. QRS [place] is Normal. MD interval is normal. QRS thelma interval is normal. QT interval is normal. No Q waves. T waves are Normal. No ST changes noted. Clinical impression: NSR w/ Non-specific ST/T Changes and No evidence of ischemia. Interpreted by me. Reviewed by me. Administered Medications: 00:38 Drug: Ondansetron IVP 4 mg IVP once; over 2 minutes Route: IVP; Site: right antecubital;8 01:35 Follow up: Response: No adverse reaction 00:38 Drug: Decadron - Dexamethasone IVP 10 mg IVP once Route: IVP; Site: right antecubital; 01:35 Follow up: Response: No adverse reaction; Pain is decreased 00:39 Drug: NS 0.9% IV 1000 ml IV at 1 bolus Per protocol; 1000 mL bolus Route: IV; Rate: 1 km8 bolus; Site: right antecubital; 02:15 Follow up: Response: No adverse reaction; IV Status: Completed infusion; IV Intake: km8 1000ml 00:39 Drug: Diazepam PO 10 mg PO once Route: PO; 01:45 Follow up: Response: No adverse reaction; Pain is decreased; RASS: Alert and Calm (0) 00:39 Drug: morphine IVP or IV 4 mg IVP once over 4 mins Route: IVP; Infused Over: 4 mins; 8 Site: right antecubital; 01:20 Follow up: Response: No adverse reaction; Pain is decreased; RASS: Alert and Calm (0) 03:14 Drug: morphine IVP or IV 4 mg IVP once over 4 mins Route: IVP; Infused Over: 4 mins; km8 Site: right antecubital; 03:30 Follow up: Pain 02/21 Adult 03:31 Follow up: Response: No adverse reaction; Pain is decreased; RASS: Alert and Calm (0) 03:14 Drug: Ondansetron IVP 4 mg IVP once; over 2 minutes Route: IVP; Site: right antecubital;8 03:30 Follow up: Response: No adverse reaction Disposition Summary: 10/10/23 03:12 Discharge Ordered Notes: Location: Home [facility] Problem: new thelma Symptoms: have improved thelma Condition: Stable thelma Diagnosis - Low back pain thelma - Strain of muscle and tendon of back wall of thorax thelma - Obesity, unspecified thelma - Rheumatoid arthritis, unspecified thelma - Unspecified symptoms and signs involving the musculoskeletal system thelma Followup: thelma - With: Private Physician - When: 2 - 3 days - Reason: Recheck today's complaints, Continuance of care, Re-evaluation by your physician Discharge Instructions: - Discharge Summary Sheet thelma - Acute Back Pain, Adult thelma - Chronic Back Pain thelma - Musculoskeletal Pain thelma - Obesity, Adult thelma - Rheumatoid Arthritis thelma - Obesity, Adult, [id number] [facility] Forms: - Medication Reconciliation Form [facility] - Thank You Letter [facility] - Antibiotic Education thelma - Prescription Opioid Use thelma - Patient Portal Instructions [facility] - Leadership Thank You Letter [facility] Prescriptions: - acetaminophen-codeine 300-30 mg Oral tablet - take 2 tablet ORAL route every 6 hours as needed for pain; 20 tablet; Refills: thelma 0, Product Selection Permitted - dexamethasone 2 mg Oral tablet - take 1 tablet ORAL route every 12 hours; 10 tablet; Refills: 0, Product [facility] Selection Permitted - Valium 5 mg Oral Tablet - take 1 tablet ORAL route every 8 hours As needed; 20 tablet; Refills: 0, [facility] Product Selection Permitted Signatures: Dispatcher [employer] Suman Ham MD MD cha Breneman, Bing Arguelles, RN RN mb9 Ana Chaudhry RN RN km8
[2023-06-23 04:40] LABS: Specific Gravity > 1.030 (1.005-1.030); Urine Bacteria None Seen /HPF (<20); Urine Bilirubin NEGATIVE (Negative); Urine Blood Trace (Negative); Urine Clarity Clear (Clear); Urine Color Colorless (Yellow); Urine Glucose NEGATIVE (Negative); Urine Protein NEGATIVE (Negative); Urine RBC <5 /HPF (None Seen); Urine Urobilinogen Normal (Normal)
[2023-06-23 05:01] VITALS: TEMP 97.9
[2023-06-23 05:10] VITALS: BP 112/71; O2SAT 95
--- NOTE | 2023-06-23 11:39 | EKG ---
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
--- NOTE | 2023-06-23 13:51 | RAD REPORT ---
EXAM DESCRIPTION: CT - Angio Aorta For Dissection - 06/23/2023 6:53 am ADDENDUM #1 These findings were discussed with Dr. Suman Chapin on 06/23/2023 at 3:02 AM central time. Electronically signed by: Dayami Rosalesshane DYER 06/23/2023 4:35 AM CDT End of Addendum EXAM DESCRIPTION: 1. CT CHEST angiography with intravenous contrast 2. CT ABDOMEN and PELVIS angiography with intravenous contrast CLINICAL HISTORY: 53 years Female Abd pain;Pain TECHNIQUE: Following the administration of intravenous contrast, multiple high-resolution axial imag es of the chest, abdomen and pelvis were performed followed by sagittal and coronal reconstructed criselda ges. Coronal and sagittal MIP images were also performed.The CT study is performed according to ALARA (as low as reasonably achievable) or ALARA/IMAGE GENTLY, with automatic adjustment of mA and/or kV a ccording to patient size. Performed on: 06/23/2023 at 1:59 AM COMPARISON: CT abdomen and pelvis performed on 11/22/[address] chest abdomen and pelvis with IV con trast performed on 10/24/2022 FINDINGS: CTA CHEST: There is satisfactory visualization and contrast opacification of pulmonary arteries. No definite i ntra-arterial filling defects are identified to suggest acute or chronic pulmonary embolism. The thor acic aorta is normal in caliber and contour without evidence of aneurysm or dissection. The lungs are well expanded and are clear. There is no evidence of a pneumothorax. There are no pleur al effusions. There is a 9 mm bleb in the right lower lobe peripherally. The central airways are farr nt. The heart is normal in size. There is no pericardial effusion. There is no evidence of hilar, mediastinal or axillary lymphadenopathy. No acute osseous abnormality is identified. There are partially imaged postsurgical changes of the lo wer cervical spine. Non-Angiographic Findings: The thyroid gland is normal in size, shape and attenuation.. CTA ABDOMEN AND PELVIS: Liver: The liver measures approximately 20 cm in craniocaudal dimension. There is a 2.9 x 2.0 x 2.7 c m stable cyst in the inferior right hepatic lobe. There is an additional 7 mm left hepatic lobe cyst. The portal veins are patent. The hepatic veins are not opacified on this study. Liver attenuation is within normal limits. Spleen: The spleen is normal is size, configuration and attenuation. Gallbladder and bile duct: The gallbladder is surgically absent. The common bile duct is top normal in size likely physiologic in nature related to the patient's prior cholecystectomy. Pancreas: The pancreas is grossly normal in size and configuration. Adrenal Glands: The adrenal glands are normal in size and configuration. Kidneys: The kidneys are normal in size and configuration. There is no evidence of hydronephrosis. Th ere is no evidence of nephrolithiasis. There is a small stable 1.3 cm left renal cortical cyst. This is probably benign. No follow-up imaging is recommended. Stomach: The stomach is grossly normal. There is no definite hiatal hernia. Bowel: The bowel gas pattern is non specific and non obstructive. Appendix: There is air in the proximal appendix. The distal portion of the appendix appears to be bor derline dilated (8 mm) and fluid-filled. Tip appendicitis is not entirely excluded. Free air: There is no evidence of free air. Free fluid: There is no evidence of free fluid. Vasculature: The aorta is normal in caliber and contour. The celiac artery, superior and inferior mes enteric arteries, renal arteries, common iliac arteries, external iliac arteries and common femoral a rteries are patent and are normal in caliber and contour. There are 2 right renal arteries. The infer ior vena cava is grossly unremarkable. Lymphadenopathy: No pathologic lymphadenopathy is identified. Bladder: The bladder is well distended and smooth in contour. Reproductive: The uterus is surgically absent. Bones: No acute osseous abnormalities are identified. There are mild degenerative changes of the thor acic and lumbar spine. There are remote postsurgical changes of the lumbar spine consistent with post erior decompression and fusion of L4 and L5. An intervertebral disc spacer is present at this level. There is degenerative disc disease at L3-L4 and L5-S1. There are scattered disc osteophyte complexes. Soft tissues: No focal soft tissue abnormalities are identified. There is a small fat-containing vent ral umbilical hernia. IMPRESSION: CTA CHEST: 1. No evidence of pulmonary embolism, aortic aneurysm or aortic dissection. 2. No evidence of acute intrathoracic disease. CTA ABDOMEN AND PELVIS: 1. No evidence of acute intra-abdominal or intrapelvic pathology. There is no evidence of abdominal aortic aneurysm or dissection. Normal CTA of the abdomen and pelvis. 2. Questionable tip appendicitis as described above. 3. Hepatomegaly. 4. Remote cholecystectomy and hysterectomy. 5. Remote posterior decompression and fusion of L4 and L5. Electronically signed by: Dayami Davis DO 06/23/2023 2:57 AM CDT Due to temporary technical issues with the PACS/Fluency reporting system, reports are being signed by the in house radiologists without review as a courtesy to insure prompt reporting. The interpreting radiologist is fully responsible for the content of the report.
--- NOTE | 2023-06-23 13:53 | RAD REPORT ---
EXAM DESCRIPTION: RAD - Chest Single View - 06/23/2023 12:27 am CLINICAL HISTORY: 53 years Female PAIN TECHNIQUE: One view of the chest. COMPARISON: No prior exams provided for comparison. FINDINGS: The lungs are clear without focal consolidation, effusion, or pneumothorax. The cardiomedi astinal silhouette and central pulmonary vasculature are normal. No acute osseous abnormalities. Post surgical changes at the cervicothoracic junction. IMPRESSION: No acute cardiopulmonary abnormalities. Electronically signed by: Rere Navarro MD 06/23/2023 12:38 AM CDT Due to temporary technical issues with the PACS/Fluency reporting system, reports are being signed by the in house radiologists without review as a courtesy to insure prompt reporting. The interpreting radiologist is fully responsible for the content of the report.
== END 2023-06-23 03:32 | disposition home or self-care (01) ==
LOC: ER 23:16
DX: S29.012A Strain of muscle and tendon of back wall of thorax, initial encounter (principal); M06.9 Rheumatoid arthritis, unspecified; R29.91 Unspecified symptoms and signs involving the musculoskeletal system; E66.9 Obesity, unspecified; Z68.38 Body mass index [BMI] 38.0-38.9, adult; Z88.6 Allergy status to analgesic agent
CPT/HCPCS: 93005; 85025; 81001; 80048; 36415; 83735; 85610; 80076; 84484; 83690; 83880; 71275; 74175; 71045; Q9967; J1100; J2405 ×2; J7030